=== PATIENT | female | born 1940 | race Caucasian/White ===

== ENCOUNTER 2016-05-05 11:45 | Emergency (ER) | payer OTHER ==
[~2016-05-05] VITALS: Ht 148.6 cm; Wt 41.0 kg
[~2016-05-05 11:45] MED LIST: ADVIN50/60 INH; ALBUAER2 INH; AMLO2.5T PO; ATV5X PO; BXN500 PO; CLR10 PO; FLUT0.15 NAE; LACT10SO17 PO; LEVA1.255 INH; LEVO75TA5 PO; POTA10TA32 PO; SALI0.6517 NAE; SODI1TAB PO; SPRIN INH; [UNRECOGNIZED DRUG - CODE] OPB
[2016-05-05 11:50] VITALS: TEMP 36.6; Ht 148.6 cm; Wt 41.0 kg
[2016-05-05] MEDS ORDERED: MoRPHine SULFATE 10 MG/ML CARP/VIAL IV STA (12:02)
[2016-05-05] MEDS ORDERED: ONDANSETRON INJ 2 MG/ML 2 ML VIAL IV STA (12:02)
[2016-05-05] MEDS ORDERED: KETOROLAC TROMETHAMINE 30 MG/ML VIAL IV STA (12:02)
[2016-05-05 12:25] LABS: BASO % 0.1 %; BASO ABS # 0.01 K/uL (0-0.2); COMPLETE YES; EOS % 0.7 %; HEMATOCRIT 42.8 % (37-47); IG% 1.4 %; LYMPH % 12.1 %; LYMPH ABS # 1.49 K/uL (1.2-3.4); MEAN CELL VOLUME 96.8 fL (80-100); MEAN CORPUSCULAR HEMOGLOBIN 33.3 pg (25-34); MEAN CORPUSCULAR HGB CONC 34.3 g/dl (32-36); MEAN PLATELET VOLUME 9.1 fL (7.4-10.4); MONO % 5.5 %; NEUT % 80.2 %; PLATELET COUNT 239 K/uL (130-400); RED BLOOD COUNT 4.42 M/uL (4.2-5.4); WHITE BLOOD COUNT 12.29 K/uL (4.8-10.8)
[2016-05-05 12:44] LABS: BUN/CREATININE RATIO 24.7 (10-20); CALCIUM 8.8 mg/dl (8.5-10.1); CREATININE 0.75 mg/dl (0.60-1.20); POTASSIUM 4.5 mmol/L (3.5-5.1)
--- NOTE | 2016-05-05 13:02 | DIAGNOSTIC IMAGING REPORT ---
LUMBAR SPINE 5 VIEWS CLINICAL HISTORY: Low back pain. FINDINGS: 5 views of the lumbar spine are correlated with abdominal CT dated 04/24/2015. The skeletal structures are osteopenic. There is no radiographic evidence of fracture or malalignment. Vertebral body height and alignment are maintained. The transverse and spinous processes are intact. There is no evidence of spondylolysis. There is only mild degenerative disc space narrowing seen throughout the lumbar spine. Anterior osteophytes are seen throughout. Mild facet arthropathy is present in the lower lumbar spine. The visualized bony pelvis appears intact. There is a nonobstructed abdominal bowel gas pattern. There is severe constipation. There is evidence carotid calcification of the abdominal aorta. IMPRESSION: 1. There is no acute bony amount is seen involving the lumbosacral spine. 2. Osteopenia and mild lumbosacral spondylosis as above. 3. Severe constipation. Electronically signed by: Nhan Price M.D. 05/05/2016 1:00 PM Dictated Date/Time: 05/05/2016 12:58 PM
[2016-05-05] MEDS ORDERED: PRED10TA PO (13:07)
[2016-05-05] MEDS ORDERED: AZIT250T PO (13:07)
[2016-05-05] MEDS ORDERED: VNTHFA/IN INH (13:07)
[2016-05-05] MEDS ORDERED: TRAV0.00 OPB (13:07)
[2016-05-05] MEDS ORDERED: SODIUM CHLORIDE 0.9% 1000ML 1,000 ML IV STA (13:18)
[2016-05-05 14:29] LABS: URINE APPEARANCE CLEAR (CLEAR); URINE BILIRUBIN NEG (NEG); URINE COLOR YELLOW; URINE EPITHELIAL CELL AUTO 0-5 /lpf (0-5); URINE NITRITE NEG (NEG); URINE PH 6.5 (4.5-7.5); URINE SPECIFIC GRAVITY 1.013 (1.000-1.030); UROBILINOGEN NEG (NEG); ZZURINE CULT IF INDIC CATH NO
[2016-05-05 14:32] LABS: MANUAL MICROSCOPIC REQUIRED? NO; REVIEW REQ? NO
[2016-05-05] MEDS ORDERED: MAGNESIUM CITRATE 296 ML/BTL PO PRN (14:45)
--- NOTE | 2016-05-05 14:46 | EMERGENCY ROOM VISIT NOTE ---
History First contact with patient: 11:55 Chief Complaint: BACK PAIN Stated Complaint: EXTREME BACK PAIN History of Present Illness The patient is a 76 year old female who presents to the Emergency Room with complaints of left-sided back pain which started on Saturday and has been getting progressively worse. The daughter states that on Saturday she started complaining of back pain. There was no trauma to the back or injury. Then the patient did not complain about the back pain for a day or 2 and now it has been getting progressively worse over the last 24 hours. She denies any urinary symptoms of frequency, urgency, dysuria or hematuria. The patient does have a history of recurrent UTIs. The patient denies any fever, chest pain. The patient has severe COPD. Review of Systems 6 system review was performed and was negative unless stated otherwise in history of present illness. Past Medical/Surgical History Medical Problems: (1) Allergic rhinitis (2) Glaucoma (3) HTN (hypertension) (4) Hypothyroidism (5) Osteoporosis (6) SIADH (syndrome of inappropriate ADH production) Surgical Problems: (1) History of cataract surgery (2) History of tonsillectomy Family History Gallbladder disease Hypertension Social History Smoking Status: Current Every Day Smoker Drug Use: none Marital Status: Housing Status: lives with family Occupation Status: retired Current/Historical Medications Scheduled Amlodipine Besylate (Norvasc), 2.5 MG PO DAILY Azithromycin (Zithromax), 250 MG PO 3XWK Fluticasone Prop/Salmeterol (Advair Diskus 500/50 60 Dose), 1 PUFFS INH BID Fluticasone Propionate (Nasal) (Flonase Allergy Relief), 2 SPRAYS NADIA DAILY Levothyroxine Sodium (Levothyroxine Sodium), 75 MCG PO DAILY Loratadine (Claritin), 10 MG PO DAILY Lorazepam (Lorazepam), 0.5 MG PO BID Potassium Chloride Microencaps (Potassium Chloride Er), 10 MEQ PO BID Prednisone (Prednisone), 5 MG PO Q2D Sodium Chloride (Sodium Chloride), 1 GM PO TID Tiotropium [place] (Spiriva Handihaler), 1 PUFF INH QAM Travoprost (Travatan Z), 1 DROPS OPB HS Scheduled PRN Albuterol Hfa (Ventolin Hfa), 2-4 PUFFS INH Q4H PRN for SOB/Wheezing Lactulose (Chronulac), 15 ML PO BID PRN for Constipation Levalbuterol Hcl (Levalbuterol), 0.5 ML INH Q4H PRN for SOB/Wheezing Allergies Coded Allergies: Levofloxacin (Verified Allergy, Severe, ANAPHYLAXIS, 03/14/16) Patient reported that the IV site was extremely itchy and that her throat "closed up" after administration of IV Levaquin Iodinated Diagnostic Agents (Verified Allergy, Intermediate, HIVES, ) Iodine (Unverified Allergy, Intermediate, HIVES, 03/14/16) PT STATES SHE GETS HIVES WHEN INJECTED WITH CONTRASTMEDIA Vancomycin (Verified Allergy, Intermediate, RASH, 03/14/16) PATIENT HAD RASH, HOT, FLUSHING AT THE END OF INFUSION. Codeine (Verified Allergy, Unknown, 03/14/16) Penicillins (Verified Allergy, Unknown, 03/14/16) Shellfish (Verified Allergy, Unknown, SEAFOOD = HIVES, 03/14/16) Sulfa Antibiotics (Verified Adverse Reaction, Mild, NAUSEA/VOMIT, 03/14/16 ) Physical Exam Vital Signs Date Time Temp Pulse Resp B/P Pulse Ox O2 Delivery O2 Flow Rate FiO2 05/05/16 13:23 85 18 155/94 94 Room Air 05/05/16 11:50 36.6 102 18 171/85 96 Room Air Physical Exam GENERAL: 76-year-old female appears very frail and in acute distress MENTAL Status: Alert and oriented 3. LUNGS: Diffuse wheezing and rhonchi noted throughout both lung crenshaw. Poor air exchange. CARDIAC: Regular rate and rhythm without murmur. Pulses is full and equal throughout. BACK: Left CVA tenderness noted LUMBAR SPINE: The patient has tenderness palpation the entire lumbar region. Limited exam secondary to patient's pain. ABDOMEN: Positive bowel sounds all 4 quadrants. Soft, nontender to palpation without organomegaly or masses. Medical Decision & Procedures ER Provider Diagnostic Interpretation: LUMBAR SPINE 5 VIEWS CLINICAL HISTORY: Low back pain. FINDINGS: 5 views of the lumbar spine are correlated with abdominal CT dated 04/24/2015. The skeletal structures are osteopenic. There is no radiographic evidence of fracture or malalignment. Vertebral body height and alignment are maintained. The transverse and spinous processes are intact. There is no evidence of spondylolysis. There is only mild degenerative disc space narrowing seen throughout the lumbar spine. Anterior osteophytes are seen throughout. Mild facet arthropathy is present in the lower lumbar spine. The visualized bony pelvis appears intact. There is a nonobstructed abdominal bowel gas pattern. There is severe constipation. There is evidence carotid calcification of the abdominal aorta. IMPRESSION: 1. There is no acute bony amount is seen involving the lumbosacral spine. 2. Osteopenia and mild lumbosacral spondylosis as above. 3. Severe constipation. Electronically signed by: Nhan Price M.D. 05/05/2016 1:00 PM Laboratory Results 05/05/16 12:04 Red Blood Count 4.42, Mean Corpuscular Volume 96.8, Mean Corpuscular Hemoglobin 33.3, Mean Corpuscular Hemoglobin Concent 34.3, Mean Platelet Volume 9.1, Neutrophils (%) (Auto) 80.2, Lymphocytes (%) (Auto) 12.1, Monocytes (%) (Auto) 5.5, Eosinophils (%) (Auto) 0.7, Basophils (%) (Auto) 0.1, Neutrophils # (Auto) 9.87, Lymphocytes # (Auto) 1.49, Monocytes # (Auto) 0.67, Eosinophils # (Auto) 0.08, Basophils # (Auto) 0.01 05/05/16 12:04 Test 05/05/16 12:04 05/05/16 13:25 White Blood Count 12.29 K/uL (4.8-10.8) Red Blood Count 4.42 M/uL (4.2-5.4) Hemoglobin 14.7 g/dL (12.0-16.0) Hematocrit 42.8 % (37-47) Mean Corpuscular Volume 96.8 fL (80-100) Mean Corpuscular Hemoglobin 33.3 pg (25-34) Mean Corpuscular Hemoglobin Concent 34.3 g/dl (32-36) Platelet Count 239 K/uL (130-400) Mean Platelet Volume 9.1 fL (7.4-10.4) Neutrophils (%) (Auto) 80.2 % Lymphocytes (%) (Auto) 12.1 % Monocytes (%) (Auto) 5.5 % Eosinophils (%) (Auto) 0.7 % Basophils (%) (Auto) 0.1 % Neutrophils # (Auto) 9.87 K/uL (1.4-6.5) Lymphocytes # (Auto) 1.49 K/uL (1.2-3.4) Monocytes # (Auto) 0.67 K/uL (0.11-0.59) Eosinophils # (Auto) 0.08 K/uL (0-0.5) Basophils # (Auto) 0.01 K/uL (0-0.2) RDW Standard Deviation 55.6 fL (36.4-46.3) RDW Coefficient of Variation 15.6 % (11.5-14.5) Immature Granulocyte % (Auto) 1.4 % Immature Granulocyte # (Auto) 0.17 K/uL (0.00-0.02) Anion Gap 10.0 mmol/L (3-11) Est Creatinine Clear Calc Drug Dose 42.6 ml/min Estimated GFR () 91.0 Estimated GFR (Non- 78.5 BUN/Creatinine Ratio 24.7 (10-20) Calcium Level 8.8 mg/dl (8.5-10.1) Total Bilirubin 0.5 mg/dl (0.2-1) Direct Bilirubin 0.1 mg/dl (0-0.2) Aspartate Amino Transf (AST/SGOT) 19 U/L (15-37) Alanine Aminotransferase (ALT/SGPT) 26 U/L (12-78) Alkaline Phosphatase 78 U/L (45-117) Total Protein 7.2 gm/dl (6.4-8.2) Albumin 3.7 gm/dl (3.4-5.0) Lipase 236 U/L (73-393) Urine Color YELLOW Urine Appearance CLEAR (CLEAR) Urine pH 6.5 (4.5-7.5) Urine Specific Hoopa 1.013 (1.000-1.030) Urine Protein NEG (NEG) Urine Glucose (UA) NEG (NEG) Urine Ketones NEG (NEG) Urine Occult Blood 1+ (NEG) Urine Nitrite NEG (NEG) Urine Bilirubin NEG (NEG) Urine Urobilinogen NEG (NEG) Urine Leukocyte Esterase NEG (NEG) Urine WBC (Auto) 0 /hpf (0-5) Urine RBC (Auto) 5-10 /hpf (0-4) Urine Hyaline Casts (Auto) 0 /lpf (0-5) Urine Epithelial Cells (Auto) 0-5 /lpf (0-5) Urine Bacteria (Auto) NEG (NEG) Medications Administered Medications (Trade) Dose Ordered Sig/Jhon Route Start Time Stop Time Status Last Admin Dose Admin Ketorolac Tromethamine (Toradol Inj) 30 mg NOW STAT IV 05/05/16 12:02 05/05/16 12:05 DC 05/05/16 12:09 30 MG Morphine Sulfate (MoRPHine SULFATE INJ) 6 mg NOW STAT IV 05/05/16 12:02 05/05/16 12:05 DC 05/05/16 12:09 6 MG Ondansetron HCl 4 mg 4 mg NOW STAT IV 05/05/16 12:02 05/05/16 12:05 DC 05/05/16 12:08 4 MG Sodium Chloride (Nss 1000ml) 1,000 ml @ 999 mls/hr Q1H1M STAT IV 05/05/16 13:18 05/05/16 14:18 DC 05/05/16 13:24 999 MLS/HR ED Course The patient was evaluated. IV access was obtained. CBC and differential, renal profile, LFTs and lipase levels were ordered. Urinalysis was ordered. The patient was given morphine 6 mg IV, Zofran 4 mg IV and Toradol 30 mg IV for pain and associated nausea. X-ray of the lumbar spine was ordered and interpreted by the radiologist and myself as above without any evidence of fracture but there was a large amount of stool within the colon. Labs are reviewed. White count was slightly elevated otherwise labs are unremarkable. Urinalysis was unremarkable. The patient was reevaluated was feeling better. The patient was independently evaluated by Dr. Alonso who agreed with treatment plan. I discussed the findings with both the patient and her daughter. The patient did not want an enema while in the emergency room. She felt she could not tolerate it. The patient was given a bottle of magnesium citrate to take with her to use as directed. The patient was discharged home in stable condition. Medical Decision Differential diagnoses include UTI, pyelonephritis, constipation, fecal impaction, compression fracture Impression Primary Impression: Constipation Departure Information Dispostion Home / Self-Care Condition GOOD Referrals Malik Forman M.D. (MEDICAL) (PCP) Patient Instructions ED Constipation, My [facility] Additional Instructions Push fluids. Drink the entire bottle of magnesium citrate to initiate bowel movement. Avoid dairy products. High-fiber diet. If symptoms persist, follow- up with your family physician.
[2016-05-05 15:02] VITALS: BP 130/69; PULSE 94; O2SAT 93
--- NOTE | 2016-05-05 16:27 | EMERGENCY ROOM VISIT NOTE ---
ED Visit Note First contact with patient: 11:55 I have personally evaluated and examined this patient. I agree with assessment and plan of Betty Jauregui PA-C.
[2016-05-18] MEDS ORDERED: PRED10TA PO (17:13)
[2016-05-18] MEDS ORDERED: LDDP5 TD (17:13)
[2016-07-02] MEDS ORDERED: CRDCD120 PO (10:58)
[2016-07-02] MEDS ORDERED: SYMIN160 INH (10:58)
[2016-07-02] MEDS ORDERED: PRD20 PO (10:58)
[2016-07-02] MEDS ORDERED: PRLSR20 PO (10:58)
[2016-07-02] MEDS ORDERED: LCTX PO (11:04)
== END 2016-05-05 15:06 | disposition home or self-care (01) ==
LOC: C.EDB 11:46 → C.EDC 15:06
DX: K59.00 Constipation, unspecified (principal); F17.200 Nicotine dependence, unspecified, uncomplicated; I10 Essential (primary) hypertension; E03.9 Hypothyroidism, unspecified; M81.0 Age-related osteoporosis without current pathological fracture

== ENCOUNTER 2016-05-12 15:13 | Inpatient (IN) | payer OTHER ==
[2016-05-12] VITALS (9 sets, daily range): BP systolic 111–128; BP diastolic 67–76; PULSE 25–151; TEMP 36.7–37.6; O2SAT 95–100; Ht 147.3 cm; Wt 37.8 kg
[~2016-05-12] VITALS: Ht 147.3 cm; Wt 37.8 kg
[~2016-05-12 15:13] MED LIST changes: -ALBUAER2 INH; +AZIT250T PO; -BXN500 PO; +PRED10TA PO; -SALI0.6517 NAE; +TRAV0.00 OPB; +VNTHFA/IN INH; -[UNRECOGNIZED DRUG - CODE] OPB
[2016-05-12] MEDS ORDERED: LORAZEPAM 2 MG/ML 1 ML VIAL IV STA (15:29)
[2016-05-12 15:52] LABS: ISTAT CREATININE 0.8 mg/dl (0.6-1.3); ISTAT IONIZED CALCIUM 1.27 mmol/l (1.12-1.32)
--- NOTE | 2016-05-12 15:52 | DIAGNOSTIC IMAGING REPORT ---
CHEST ONE VIEW PORTABLE CLINICAL HISTORY: Atypical chest pain. Respiratory distress. COMPARISON STUDY: 03/14/2016 FINDINGS: The patient is hyperinflated. Underlying emphysema is suspected. The heart is normal in size. There is no failure. There is no focal pulmonary consolidation. There are no pleural effusions.[ IMPRESSION: Emphysema. No active disease in the chest. Electronically signed by: Rafy Ortiz M.D. 05/12/2016 3:51 PM Dictated Date/Time: 05/12/2016 3:50 PM
[2016-05-12 15:57] LABS: BASO % 0.1 %; BASO ABS # 0.02 K/uL (0-0.2); COMPLETE YES; EOS % 0.3 %; HEMATOCRIT 41.5 % (37-47); IG% 1.5 %; LYMPH % 16.3 %; LYMPH ABS # 2.86 K/uL (1.2-3.4); MEAN CELL VOLUME 95.8 fL (80-100); MEAN CORPUSCULAR HEMOGLOBIN 33.7 pg (25-34); MEAN CORPUSCULAR HGB CONC 35.2 g/dl (32-36); MEAN PLATELET VOLUME 9.4 fL (7.4-10.4); MONO % 6.2 %; NEUT % 75.6 %; PLATELET COUNT 255 K/uL (130-400); RED BLOOD COUNT 4.33 M/uL (4.2-5.4); WHITE BLOOD COUNT 17.55 K/uL (4.8-10.8)
[2016-05-12 16:00] LABS: POINT OF CARE TROPONIN I 0.02 ng/ml (0-0.045)
[2016-05-12 16:12] LABS: INR 0.9 (0.9-1.1); PARTIAL THROMBOPLASTIN RATIO 0.8; PROTHROMBIN TIME (PATIENT) 9.4 SECONDS (9.0-12.0)
[2016-05-12 16:14] LABS: BUN/CREATININE RATIO 17.3 (10-20); CALCIUM 10.1 mg/dl (8.5-10.1); CREATININE 0.9 mg/dl (0.60-1.20); MAGNESIUM 1.9 mg/dl (1.8-2.4)
[2016-05-12] MEDS ORDERED: ALBUTEROL HFA 8 GM INHALER INH PRN (16:30)
[2016-05-12] MEDS ORDERED: DEXTROSE 50% 50 ML SYR IV PRN (16:30)
[2016-05-12] MEDS ORDERED: ONDANSETRON INJ 2 MG/ML 2 ML VIAL IV PRN (16:30)
[2016-05-12] MEDS ORDERED: GLUCOSE 10 TABS/TUBE PO PRN (16:30)
[2016-05-12] MEDS ORDERED: GLUCAGON FOR INJ 1 MG VIAL SQ PRN (16:30)
[2016-05-12] MEDS ORDERED: GLUCOSE 40% GEL 15 GM TUBE PO PRN (16:30)
[2016-05-12] MEDS ORDERED: POLYETHYLENE (MIRALAX) 17 GM PACK PO PRN (16:30)
[2016-05-12] MEDS ORDERED: METHYLPREDNISOLONE IV 60 MG in SYRINGE 0 ML IV SCH ×2 (16:30→18:30)
[2016-05-12] MEDS ORDERED: BISACODYL 10 MG SUPP PR PRN (16:30)
[2016-05-12] MEDS ORDERED: ALUMINUM/MAGNESIUM/SIMETH (MAALOX MAX) 30 ML UDC PO PRN (16:30)
[2016-05-12] MEDS ORDERED: MAGNESIUM HYDROXIDE SUSP 30 ML UDC PO PRN (16:30)
[2016-05-12] MEDS ORDERED: ACETAMINOPHEN 325 MG TAB PO PRN (16:30)
[2016-05-12] MEDS ORDERED: LACTULOSE SYRUP 10 GM/15 ML BTL 473 ML PO PRN (16:30)
[2016-05-12] MEDS ORDERED: TRAZ50TA35 PO (16:47)
--- NOTE | 2016-05-12 16:47 | History and Physical ---
History & Physical Date & Time of Service: May 12, 2016 at 16:32 Chief Complaint: SOB Primary Care Physician: Malik Forman M.D. (MEDICAL) History of Present Illness Source: patient, family, clinic records, hospital records Patient seen and examined. 76 year old female with PMHx of SIADH, hypothyroidism , HTN, COPD, Anxiety,and tobacco abuse presents to the ED complaining of SOB x 2 days. Patient states that she has been on a prednisone taper for the last month and is getting down to the end only taking a half of a pill. Yesterday she states she started to feel a little more SOB but not too bad. She states when she woke up today she felt extremely SOB and daughter called EMS. Patient reports associated wheezing, she states she has an occasional cough. She reports she finished a course of Biaxin last week. She states she takes zithromycin MWF. She reports she has been on back to back prednisone tapers because this keeps happening every time she gets close to the ED of the taper. She denies fevers, chills, chest pain, palpitations, nausea, vomiting, dysuria, calf pain and edema. She reports she has been having a lot of diarrhea. When EMS arrived at patients home she was 90% on RA, she received solu-medrol and nebs enroute. On arrival to ED she was placed on Bipap and is saturating well. HR is elevated and daughter reports patient gets anxious when at the hospital, WBC count was 17K, lactate is <2, CXR is without consolidation. She will be admitted for further workup and treatment. Past Medical/Surgical History Medical Problems: (1) Allergic rhinitis Status: Chronic (2) Glaucoma Status: Chronic (3) HTN (hypertension) Status: Chronic (4) Hypothyroidism Status: Chronic (5) Osteoporosis Status: Chronic (6) SIADH (syndrome of inappropriate ADH production) Status: Chronic Surgical Problems: (1) History of cataract surgery Status: Chronic (2) History of tonsillectomy Status: Resolved Family History Gallbladder disease Hypertension Social History Smoking Status: Current Every Day Smoker Drug Use: none Marital Status: Housing status: lives with family Occupational Status: retired Immunizations History of Influenza Vaccine: No History of Tetanus Vaccine?: Unknown History of Pneumococcal: Yes Pneumococcal Date: Jun 13, 2009 History of Hepatitis B Vaccine: No Multi-Drug Resistant Organisms History of MDRO: No Allergies Coded Allergies: Levofloxacin (Verified Allergy, Severe, ANAPHYLAXIS, 03/14/16) Patient reported that the IV site was extremely itchy and that her throat "closed up" after administration of IV Levaquin Iodinated Diagnostic Agents (Verified Allergy, Intermediate, HIVES, ) Iodine (Unverified Allergy, Intermediate, HIVES, 03/14/16) PT STATES SHE GETS HIVES WHEN INJECTED WITH CONTRASTMEDIA Vancomycin (Verified Allergy, Intermediate, RASH, 03/14/16) PATIENT HAD RASH, HOT, FLUSHING AT THE END OF INFUSION. Codeine (Verified Allergy, Unknown, 03/14/16) Penicillins (Verified Allergy, Unknown, 03/14/16) Shellfish (Verified Allergy, Unknown, SEAFOOD = HIVES, 03/14/16) Sulfa Antibiotics (Verified Adverse Reaction, Mild, NAUSEA/VOMIT, 03/14/16 ) Home Medications Scheduled Amlodipine Besylate (Norvasc), 2.5 MG PO DAILY Azithromycin (Zithromax), 250 MG PO 3XWK Fluticasone Prop/Salmeterol (Advair Diskus 500/50 60 Dose), 1 PUFFS INH BID Fluticasone Propionate (Nasal) (Flonase Allergy Relief), 2 SPRAYS NADIA DAILY Levothyroxine Sodium (Levothyroxine Sodium), 75 MCG PO DAILY Loratadine (Claritin), 10 MG PO DAILY Lorazepam (Lorazepam), 0.5 MG PO BID Potassium Chloride Microencaps (Potassium Chloride Er), 10 MEQ PO BID Prednisone (Prednisone), 5 MG PO Q2D Sodium Chloride (Sodium Chloride), 1 GM PO TID Tiotropium Gregory (Spiriva Handihaler), 1 PUFF INH QAM Travoprost (Travatan Z), 1 DROPS OPB HS Trazodone Hcl (Trazodone), 50 MG PO HS Scheduled PRN Albuterol Hfa (Ventolin Hfa), 2-4 PUFFS INH Q4H PRN for SOB/Wheezing Lactulose (Chronulac), 15 ML PO BID PRN for Constipation Levalbuterol Hcl (Levalbuterol), 0.5 ML INH Q4H PRN for SOB/Wheezing Review of Systems See above for pertinent positives & negatives. A total of 10 systems reviewed and were otherwise negative. Physical Exam Vital Signs Date Time Temp Pulse Resp B/P Pulse Ox O2 Delivery O2 Flow Rate FiO2 05/12/16 16:29 140 31 109/85 100 BiPAP 05/12/16 16:14 151 97 50 05/12/16 16:13 151 38 97 BiPAP/CPAP 50 05/12/16 16:11 150 05/12/16 16:06 149 26 136/89 100 BiPAP 05/12/16 15:58 100 BiPAP 05/12/16 15:54 150 28 156/99 100 BiPAP 05/12/16 15:51 100 BiPAP 05/12/16 15:37 36.4 151 38 137/116 100 BiPAP 05/12/16 15:37 90 Room Air General Appearance: + pertinent finding (Cachectic appearing 76 year old female lying in bed on BIPAP in NAD with daughter at bedside ) Head: normocephalic, atraumatic Eyes: EOMI, sclerae normal ENT: hearing grossly normal, + pertinent finding (BIPAP) Neck: supple, no JVD Respiratory/Chest: chest non-tender, + pertinent finding (On BIPAP, lungs poor air entry, decreased breath sounds, tachypnea ) Cardiovascular: no edema, no gallop, no JVD, no murmur, normal peripheral pulses, + tachycardia (150s, regular ) Abdomen/GI: normal bowel sounds, non tender, soft Back: normal inspection, no muscle spasm Extremities/Musculoskelatal: no calf tenderness, normal capillary refill, no pedal edema Neurologic/Psych: alert, oriented x 3, + pertinent finding (no motor or sensory deficits noted on gross exam ) Skin: normal color, warm/dry, no rash Lymphatic: no adenopathy Diagnostics Laboratory Results Results Past 24 Hours Test 05/12/16 15:30 05/12/16 15:32 05/12/16 15:36 05/12/16 15:41 Range/Units White Blood Count 17.55 4.8-10.8 K/uL Red Blood Count 4.33 4.2-5.4 M/uL Hemoglobin 14.6 12.0-16.0 g/dL Hematocrit 41.5 37-47 % Mean Corpuscular Volume 95.8 80-100 fL Mean Corpuscular Hemoglobin 33.7 25-34 pg Mean Corpuscular Hemoglobin Concent 35.2 32-36 g/dl Platelet Count 255 130-400 K/uL Mean Platelet Volume 9.4 7.4-10.4 fL Neutrophils (%) (Auto) 75.6 % Lymphocytes (%) (Auto) 16.3 % Monocytes (%) (Auto) 6.2 % Eosinophils (%) (Auto) 0.3 % Basophils (%) (Auto) 0.1 % Neutrophils # (Auto) 13.26 1.4-6.5 K/uL Lymphocytes # (Auto) 2.86 1.2-3.4 K/uL Monocytes # (Auto) 1.09 0.11-0.59 K/uL Eosinophils # (Auto) 0.05 0-0.5 K/uL Basophils # (Auto) 0.02 0-0.2 K/uL RDW Standard Deviation 52.6 36.4-46.3 fL RDW Coefficient of Variation 15.0 11.5-14.5 % Immature Granulocyte % (Auto) 1.5 % Immature Granulocyte # (Auto) 0.27 0.00-0.02 K/uL Prothrombin Time 9.4 9.0-12.0 SECONDS Prothromb Time International Ratio 0.9 0.9-1.1 Activated Partial Thromboplast Time 21.5 21.0-31.0 SECONDS Partial Thromboplastin Ratio 0.8 Sodium Level 136 136-145 mmol/L Potassium Level 4.0 3.5-5.1 mmol/L Chloride Level 100 98-107 mmol/L Carbon Dioxide Level 26 21-32 mmol/L Anion Gap 10.0 16.0 16-25 mmol/L Blood Urea Nitrogen 16 7-18 mg/dl Creatinine 0.90 0.60-1.20 mg/dl Est Creatinine Clear Calc Drug Dose 31.3 ml/min Estimated GFR () 73.0 Estimated GFR (Non- 63.0 BUN/Creatinine Ratio 17.3 10-20 Random Glucose 101 70-99 mg/dl Calcium Level 10.1 8.5-10.1 mg/dl Magnesium Level 1.9 1.8-2.4 mg/dl Bedside Hemoglobin 15.0 12.0-16.0 g/dl Bedside Hematocrit 44 37-47 % Bedside Sodium 136 135-144 mEq/L Bedside Potassium 4.1 3.3-5.0 mEq/L Bedside Chloride 98 101-112 mEq/L Bedside Total CO2 27 24-31 mEq/l Bedside Blood Urea Nitrogen 15 7-18 mg/dl Bedside Creatinine 0.8 0.6-1.3 mg/dl Bedside Glucose (other) 105 70-99 mg/dl Bedside Ionized Calcium (Dante) 1.27 1.12-1.32 mmol/l Bedside Lactic Acid Venous 1.24 0.90-1.70 mmol/L Bedside Troponin I 0.020 0-0.045 ng/ml KY-[id number]-[id number]-Type Natriuretic Peptide 423 0-900 pg/ml Test 05/12/16 16:20 Range/Units Microbiology Results 05/12/16 Blood Culture, Received Pending 05/12/16 Blood Culture, Received Pending Diagnostic Radiology CXR Per radiologist read: IMPRESSION: Emphysema. No active disease in the chest. Impression Assessment and Plan 76 year old female presents to the ED complaining of increase SOB x 1 day ACUTE EXACERBATION OF COPD -Admit to PCU -CXR without consolidation, check Flu PCR -WBC 17K possibly secondary to steroid use, Lactate <2 -IV Solu-Medrol -Xopenex nebs scheduled and prn RE: tachycardia -Empiric Abx with doxycycline -Continue Spiriva, Advair -Continue BIPAP until respiratory status improved -Blood cultures, sputum cultures pending -CBC, PRP, Mg daily -Pulmonology consultation for further recommendations ACUTE RESPIRATORY FAILURE -secondary to COPD exacerbation- does not use oxygen at home -continue Bipap -ABG pending -additional treatment as above TACHYCARDIA -Possibly secondary to hypoxia -continue Bipap -R/O PE - ddimer pending -patient has contrast dye allergy will need prednisone prep prior to CTA if DDimer is positive DIARRHEA -check C. diff HYPOTHYROIDISM -continue Synthroid HTN -stable -continue Amlodipine ANXIETY - continue Ativan prn SIADH -Sodium stable -continue Sodium Tablets TOBACCO ABUSE -Cessation counseling given -Nicotine patch ordered AAA -2.6 cm on 04/2015 DVT PROPHYLAXIS: Sq heparin CODE STATUS: FULL CODE DISPO:In my clinical judgment this beneficiary meets acute admission criteria, established by [facility], that includes being hospitalized through two midnights. Patient seen in collaboration with Dr. Melton ATTENDING NOTE : pt seen and examined at bedside , care co ordinated with Lydia Weston PA-C 76 yo F with hx of COPD not on home 02 , presented with Severe SOB , hypoxia, tachycardia pt mentions of having non productive cough for past week was treated with Biaxine now on taper end of Prednisone has been having ongoing difficulty of breathing -but this morning it was so severe she could get out of bed minimum activity made her SOB felt that can not get enough air in pt was placed on Bipap in ED spo2 was 100 % Bipap Fi02 50% Fio2 ordered to adjust to 30 % P/E: gen : very frail elderly female having respiratory distress HEENT: sclera non icteric on Bipap able to speak in sentences Lungs; very poor air entry HT : tachycardic Abdomen ; soft non tender Ext : no rash or deformity Neuro : no focal deficit A/P : Acute on Chronic respiratory failure : -due to COPD exacerbation -on Bipap support -ordered for IV Solu Medrol 125 mg IV X1 now then continue on 60 mg IV Q 6hrs Neb tx Xopenex scheduled QID and prn Q 2hrs empiric abx with Doxycycline no infiltrate noted in Chest xray pulmonology consulted pt follow with Renata Garcia PA-C Tachycardia : sinus tachycardia -due to Respiratory distress cont respiratory support Need to R/o PE D -dimer elevated lower ext Doppler ordered CTA of chest for PE after prednisone prep for IV dye allergy ECHO ordered monitor in Tele FULL CODE update given to daughter at bedside VTE Prophylaxis VTE Risk Assessment Done? Y/N: Yes Risk Level: Moderate
[2016-05-12 17:19] LABS: ALLEN TEST POS (POS); ARTERIAL BLD GAS O2 SATURATION 99.8 % (90-95); ARTERIAL BLOOD GAS BASE EXCESS 1.5 mEq/L (-9-1.8); ARTERIAL BLOOD GAS HCO3 26 mmol/L (19-24); ARTERIAL BLOOD GAS PO2 291 mm/Hg (80-95); ARTERIAL BLOOD GAS pH 7.43 (7.35-7.45); O2 ADMINISTRATION 50%
--- NOTE | 2016-05-12 18:19 | Progress Note ---
Progress Note ATTENDING NOTE : Pt remains persistently tachycardic HR in 138 -140s on BiPAP ABG shows pH 7.43/Co2 39/Po2 29 /02 99 D dimer > 500 concern for PE ( sudden onset of severe SOB started this AM /persisted tachycardia even when Hypoxia resolved , on BiPAP support ) lower ext Doppler ordered pt has iodinated contrast allergy -ordered for Prednisone Pre medication scheduled for CTA of chest for PE IV Solu Medrol 125 mg X 1 given for severe COPD exacerbation
[2016-05-12] MEDS ORDERED: METHYLPREDNISOLONE IV 125 MG in SYRINGE 0 ML IV ONE (18:30)
--- NOTE | 2016-05-12 19:00 | DIAGNOSTIC IMAGING REPORT ---
ULTRASOUND VENOUS DOPPLER LWR EXT BILA CLINICAL HISTORY: Bilateral leg swelling COMPARISON STUDY: No previous studies for comparison. FINDINGS: Real-time and color flow Doppler imaging were performed. Flow was seen within the femoral, popliteal and calf veins with no intraluminal thrombus demonstrated. The saphenous vein is patent. IMPRESSION: No evidence of lower extremity DVT. Electronically signed by: Rafy Ortiz M.D. 05/12/2016 6:58 PM Dictated Date/Time: 05/12/2016 6:58 PM
[2016-05-12] MEDS: POTASSIUM CHLORIDE 10 MEQ TABCR PO SCH (19:03)
--- NOTE | 2016-05-12 19:19 | EMERGENCY ROOM VISIT NOTE ---
History Report prepared by Lauri: Jinny Tabor Under the Supervision of: Dr. Zac Estrada M.D. First contact with patient: 15:20 Chief Complaint: RESPIRATORY DISTRESS Stated Complaint: SOB History of Present Illness The patient is a 76 year old female who presents to the Emergency Room with complaints of constant respiratory distress beginning today. Per EMS the patient has received 3 breathing treatments and Solu-Medrol. He reports that she is 90% on room air and her respiratory distress has improved minimally. The patient complains of low back pain that began 1 week ago. She denies any fever and abdominal pain and notes that she is on Prednisone and has COPD. The daughter notes that the patient has emphysema and was severely constipated last week. She takes 0.5mg of Lorazepam at home and has a history of panic attacks when she comes into the hospital. The daughter notes that the patient still smokes. She denies any numbness or weakness to her lower extremities or incontinence. She states she has to have a bowel movement. She denies any chest discomfort or any upper back pain. HPI limited secondary to respiratory distress. Source of History: patient, family History Limited By: other (respiratory distress) Onset: today Position: other (respiratory) Timing: constant Associated Symptoms: + back pain, No abdominal pain, No fevers, No numbness , No weakness Review of Systems See HPI for pertinent positives & negatives. ROS limited secondary to respiratory distress. Past Medical & Surgical Medical Problems: (1) Allergic rhinitis (2) COPD exacerbation (3) Glaucoma (4) HTN (hypertension) (5) Hypothyroidism (6) Osteoporosis (7) SIADH (syndrome of inappropriate ADH production) Surgical Problems: (1) History of cataract surgery (2) History of tonsillectomy Family History Gallbladder disease Hypertension Social History Smoking Status: Current Every Day Smoker Drug Use: none Marital Status: Housing Status: lives with family Occupation Status: retired Current/Historical Medications Scheduled Amlodipine Besylate (Norvasc), 2.5 MG PO DAILY Azithromycin (Zithromax), 250 MG PO 3XWK Fluticasone Prop/Salmeterol (Advair Diskus 500/50 60 Dose), 1 PUFFS INH BID Fluticasone Propionate (Nasal) (Flonase Allergy Relief), 2 SPRAYS NADIA DAILY Levothyroxine Sodium (Levothyroxine Sodium), 75 MCG PO DAILY Loratadine (Claritin), 10 MG PO DAILY Lorazepam (Lorazepam), 0.5 MG PO BID Potassium Chloride Microencaps (Potassium Chloride Er), 10 MEQ PO BID Prednisone (Prednisone), 5 MG PO Q2D Sodium Chloride (Sodium Chloride), 1 GM PO TID Tiotropium [place] (Spiriva Handihaler), 1 PUFF INH QAM Travoprost (Travatan Z), 1 DROPS OPB HS Trazodone Hcl (Trazodone), 50 MG PO HS Scheduled PRN Albuterol Hfa (Ventolin Hfa), 2-4 PUFFS INH Q4H PRN for SOB/Wheezing Lactulose (Chronulac), 15 ML PO BID PRN for Constipation Levalbuterol Hcl (Levalbuterol), 0.5 ML INH Q4H PRN for SOB/Wheezing Allergies Coded Allergies: Levofloxacin (Verified Allergy, Severe, ANAPHYLAXIS, 03/14/16) Patient reported that the IV site was extremely itchy and that her throat "closed up" after administration of IV Levaquin Iodinated Diagnostic Agents (Verified Allergy, Intermediate, HIVES, ) Iodine (Unverified Allergy, Intermediate, HIVES, 03/14/16) PT STATES SHE GETS HIVES WHEN INJECTED WITH CONTRASTMEDIA Vancomycin (Verified Allergy, Intermediate, RASH, 03/14/16) PATIENT HAD RASH, HOT, FLUSHING AT THE END OF INFUSION. Codeine (Verified Allergy, Unknown, 03/14/16) Penicillins (Verified Allergy, Unknown, 03/14/16) Shellfish (Verified Allergy, Unknown, SEAFOOD = HIVES, 03/14/16) Sulfa Antibiotics (Verified Adverse Reaction, Mild, NAUSEA/VOMIT, 03/14/16 ) Physical Exam Vital Signs Date Time Temp Pulse Resp B/P Pulse Ox O2 Delivery O2 Flow Rate FiO2 05/12/16 16:14 151 97 50 05/12/16 16:13 151 38 97 BiPAP/CPAP 50 05/12/16 16:11 150 05/12/16 16:06 149 26 136/89 100 BiPAP 05/12/16 15:58 100 BiPAP 05/12/16 15:54 150 28 156/99 100 BiPAP 05/12/16 15:51 100 BiPAP 05/12/16 15:37 36.4 151 38 137/116 100 BiPAP 05/12/16 15:37 90 Room Air Physical Exam Constitutional: Vital signs reviewed. The patient is in respiratory distress. Eyes: Pupils are equal round reactive to light. Conjunctiva are noninjected. ENT: Pharynx is clear without erythema or exudate. Mucous membranes are slightly dry. Neck supple without meningeal signs. Respiratory: Diffuse wheezing. Poor air entry bilaterally. Cardiovascular: Tachycardic rate at 150 and regular rhythm. No rubs or gallops. GI: Soft, nondistended and nontender. Bowel sounds are present. Musculoskeletal: No peripheral edema. No lower extremity tenderness. Integumentary: No cyanosis. Neurological: The patient is awake and alert. No focal deficits. Motor and sensation are intact in the lower extremities. Psychiatric: Anxious. Medical Decision & Procedures ER Provider Diagnostic Interpretation: X-ray results as stated below per interpretation by me and the radiologist: CHEST ONE VIEW PORTABLE FINDINGS: The patient is hyperinflated. Underlying emphysema is suspected. The heart is normal in size. There is no failure. There is no focal pulmonary consolidation. There are no pleural effusions.[ IMPRESSION: Emphysema. No active disease in the chest. Electronically signed by: Rafy Ortiz M.D. 05/12/2016 3:51 PM Dictated Date/Time: 05/12/2016 3:50 PM Laboratory Results 05/12/16 15:30 Red Blood Count 4.33, Mean Corpuscular Volume 95.8, Mean Corpuscular Hemoglobin 33.7, Mean Corpuscular Hemoglobin Concent 35.2, Mean Platelet Volume 9.4, Neutrophils (%) (Auto) 75.6, Lymphocytes (%) (Auto) 16.3, Monocytes (%) (Auto) 6.2, Eosinophils (%) (Auto) 0.3, Basophils (%) (Auto) 0.1, Neutrophils # (Auto) 13.26, Lymphocytes # (Auto) 2.86, Monocytes # (Auto) 1.09, Eosinophils # (Auto) 0.05, Basophils # (Auto) 0.02 05/12/16 15:30 Test 05/12/16 15:30 05/12/16 15:32 05/12/16 15:36 05/12/16 15:41 White Blood Count 17.55 K/uL (4.8-10.8) Red Blood Count 4.33 M/uL (4.2-5.4) Hemoglobin 14.6 g/dL (12.0-16.0) Hematocrit 41.5 % (37-47) Mean Corpuscular Volume 95.8 fL (80-100) Mean Corpuscular Hemoglobin 33.7 pg (25-34) Mean Corpuscular Hemoglobin Concent 35.2 g/dl (32-36) Platelet Count 255 K/uL (130-400) Mean Platelet Volume 9.4 fL (7.4-10.4) Neutrophils (%) (Auto) 75.6 % Lymphocytes (%) (Auto) 16.3 % Monocytes (%) (Auto) 6.2 % Eosinophils (%) (Auto) 0.3 % Basophils (%) (Auto) 0.1 % Neutrophils # (Auto) 13.26 K/uL (1.4-6.5) Lymphocytes # (Auto) 2.86 K/uL (1.2-3.4) Monocytes # (Auto) 1.09 K/uL (0.11-0.59) Eosinophils # (Auto) 0.05 K/uL (0-0.5) Basophils # (Auto) 0.02 K/uL (0-0.2) RDW Standard Deviation 52.6 fL (36.4-46.3) RDW Coefficient of Variation 15.0 % (11.5-14.5) Immature Granulocyte % (Auto) 1.5 % Immature Granulocyte # (Auto) 0.27 K/uL (0.00-0.02) Prothrombin Time 9.4 SECONDS (9.0-12.0) Prothromb Time International Ratio 0.9 (0.9-1.1) Activated Partial Thromboplast Time 21.5 SECONDS (21.0-31.0) Partial Thromboplastin Ratio 0.8 D-Dimer 530 ug/L FEU (0-500) Est Creatinine Clear Calc Drug Dose 31.3 ml/min Estimated GFR () 73.0 Estimated GFR (Non- 63.0 BUN/Creatinine Ratio 17.3 (10-20) Calcium Level 10.1 mg/dl (8.5-10.1) Magnesium Level 1.9 mg/dl (1.8-2.4) Bedside Hemoglobin 15.0 g/dl (12.0-16.0) Bedside Hematocrit 44 % (37-47) Bedside Sodium 136 mEq/L (135-144) Bedside Potassium 4.1 mEq/L (3.3-5.0) Bedside Chloride 98 mEq/L (101-112) Bedside Total CO2 27 mEq/l (24-31) Anion Gap 16.0 mmol/L (16-25) Bedside Blood Urea Nitrogen 15 mg/dl (7-18) Bedside Creatinine 0.8 mg/dl (0.6-1.3) Bedside Glucose (other) 105 mg/dl (70-99) Bedside Ionized Calcium (Dante) 1.27 mmol/l (1.12-1.32) Bedside Lactic Acid Venous 1.24 mmol/L (0.90-1.70) Bedside Troponin I 0.020 ng/ml (0-0.045) EM-Jnx-X-Type Natriuretic Peptide 423 pg/ml (0-900) Laboratory results as reviewed by me. Medications Administered Medications (Trade) Dose Ordered Sig/Jhon Route Start Time Stop Time Status Last Admin Dose Admin Lorazepam (Ativan Inj) 0.5 mg NOW STAT IV 05/12/16 15:29 05/12/16 15:30 DC 05/12/16 15:33 0.5 MG ECG Indication: other (respiratory distress) Rate (beats per minute): 152 Rhythm: sinus tachycardia (narrow complex tachycardia) Findings: other (limited interpretation due to baseline artifact) ED Course 1520: The patient was evaluated in room B1. A complete history and physical exam was performed. 1529: Ativan Inj 0.5mg IV. 1558: I reevaluated the patient. She is feeling better but is still tachycardic and diffusely wheezing. 1604: I spoke with Perla Weston of [facility]. We discussed the patient and her results. The patient will be further evaluated. 1646: I reevaluated the patient. Her heart rate is 130 and she is feeling better. She feels less anxious and is admitted to the hospitalist. Medical Decision This is a 76-year-old female who presents with respiratory distress. Differential diagnosis includes COPD exacerbation, pneumothorax, pneumonia, bronchitis, CHF, pulmonary edema. I did perform a limited focused review of portions of the patient's old chart on the electronic medical record. The patient was seen here last week on 05/05/16 for back pain. She had a lumbar X- Ray that was negative for acute process other than constipation. I did evaluate the patient immediately on arrival as noted above. I did obtain history from the patient as well as the paramedics. I also obtained history from her daughter. She did receive Solu-Medrol IV prehospital. She has also been on a prednisone taper according to her daughter. The patient was placed on a continuous dye colorist dyer. She was placed on BiPAP. She was given an hour-long DuoNeb. She was given Ativan 0.5 mg IV because her daughter stated that she often has anxiety compounding her shortness of breath and response to benzos. I did order and personally review the patient's 12-lead EKG and chest x -ray as described above. I did order and review the patient's blood work as noted in the electronic medical record. I did reassess the patient multiple times. She did have significant improvement of her symptoms as well as improvement of her tachycardia. I did recommend admission to the hospital. I did discuss the case with the hospitalist and shoe parts caser. Consults Time Called: 1600 Consulting Physician: Perla Mak Returned Call: 1604 I spoke with Perla Weston of [facility]. We discussed the patient and her results. The patient will be further evaluated. Impression Primary Impression: Respiratory failure Additional Impressions: COPD exacerbation Tachycardia Low back pain Critical Care I have personally spent greater than 30 minutes of critical care time in the direct management of this patient. This includes bedside care, interpretation of diagnostic studies, and testing, discussion with consultants, patient, and family members, and other required patient management activities. This 30 minutes is in excess of all separately billable procedures. Scribe Attestation The scribe's documentation has been prepared under my direct and personally reviewed by me in its entirety. I confirm that the note above accurately reflects all work, treatment, procedures, and medical decision making performed by me. Departure Information Dispostion Being Evaluated By Hospitalist Referrals Malik Forman M.D. (MEDICAL) (PCP) Patient Instructions Asthma - [facility], [place], COPD - [facility], [place], Croup - [facility], [place], My [facility] Problem Qualifiers Primary Impression: Respiratory failure Chronicity: acute Respiratory failure complication: unspecified whether with hypoxia or hypercapnia Qualified Codes: J96.00 - Acute respiratory failure, unspecified whether with hypoxia or hypercapnia Additional Impressions: Low back pain Chronicity: acute Back pain laterality: midline Sciatica presence: without sciatica Qualified Codes: M54.5 - Low back pain
[2016-05-12] MEDS: IPRATROPIUM BROMIDE NEB SOLN 0.02% 2.5 ML VIAL INH SCH (20:11)
[2016-05-12] MEDS: LEVALBUTEROL 1.25MG/0.5ML NEB INH SCH (20:11)
[2016-05-12 20:22] LABS: INFLUENZA A PCR Neg for Influ A (NEG); INFLUENZA B PCR Neg for Influ B (NEG)
[2016-05-12] MEDS: FLUTICASONE/SALMETEROL (ADVAIR) 500/50 INH 14 PUFF INH SCH (20:35)
[2016-05-12] MEDS: SODIUM CHLORIDE 1 GM TAB PO SCH (20:36)
[2016-05-12] MEDS: DOXYCYCLINE HYCLATE 100 MG CAP PO SCH (20:36)
[2016-05-12] MEDS: TRAVOPROST Z 0.004% OPH SOLN 2.5 ML BTL OPB SCH (20:36)
[2016-05-12] MEDS: POLYETHYLENE (MIRALAX) 17 GM PACK PO SCH (20:36)
[2016-05-12] MEDS: DOCUSATE SODIUM 100 MG CAP PO SCH (20:36)
[2016-05-12] MEDS ORDERED: LEVALBUTEROL/IPRATROPIUM NEB INH SCH (21:00)
[2016-05-12] MEDS: HEPARIN SOD 5000 UNIT/0.5 ML CARP SQ SCH (22:00)
[2016-05-12] MEDS: LORAZEPAM 0.5 MG TAB PO SCH (22:19)
[2016-05-12] MEDS: METHYLPREDNISOLONE IV 60 MG in SYRINGE 0 ML IV SCH (23:47)
[2016-05-13] VITALS (15 sets, daily range): BP systolic 107–143; BP diastolic 62–81; PULSE 90–106; TEMP 36.4–37.1; O2SAT 93–97
[2016-05-13 01:01] LABS: CKMB/CK RATIO 7.2 (0-3.0)
[2016-05-13] MEDS: LEVALBUTEROL 1.25MG/0.5ML NEB INH SCH ×4 (01:54→19:17)
[2016-05-13] MEDS: IPRATROPIUM BROMIDE NEB SOLN 0.02% 2.5 ML VIAL INH SCH ×4 (01:54→19:17)
[2016-05-13] MEDS: METHYLPREDNISOLONE IV 60 MG in SYRINGE 0 ML IV SCH ×4 (05:37→23:50)
[2016-05-13] MEDS: LEVOTHYROXINE 75 MCG TAB PO SCH (05:37)
[2016-05-13] MEDS: HEPARIN SOD 5000 UNIT/0.5 ML CARP SQ SCH ×3 (05:40→21:43)
[2016-05-13 07:18] LABS: HEMATOCRIT 34.6 % (37-47); MEAN CELL VOLUME 95.1 fL (80-100); MEAN CORPUSCULAR HEMOGLOBIN 33.5 pg (25-34); MEAN CORPUSCULAR HGB CONC 35.3 g/dl (32-36); MEAN PLATELET VOLUME 9.3 fL (7.4-10.4); PLATELET COUNT 176 K/uL (130-400); RED BLOOD COUNT 3.64 M/uL (4.2-5.4); WHITE BLOOD COUNT 11.89 K/uL (4.8-10.8)
[2016-05-13 07:42] LABS: BASO % 0.1 %; BASO ABS # 0.01 K/uL (0-0.2); COMPLETE YES; IG% 1.1 %; LYMPH % 5.1 %; LYMPH ABS # 0.61 K/uL (1.2-3.4); MONO % 1.9 %; NEUT % 91.8 %
[2016-05-13] MEDS ORDERED: OPTIRAY 320 IV PRN (07:45)
[2016-05-13 07:50] LABS: BUN/CREATININE RATIO 26.8 (10-20); CALCIUM 8.9 mg/dl (8.5-10.1); CREATININE 1.3 mg/dl (0.60-1.20); MAGNESIUM 1.9 mg/dl (1.8-2.4); POTASSIUM 4.5 mmol/L (3.5-5.1)
[2016-05-13] MEDS: SODIUM CHLORIDE 1 GM TAB PO SCH ×3 (08:14→20:46)
[2016-05-13] MEDS: DOXYCYCLINE HYCLATE 100 MG CAP PO SCH ×2 (08:15→20:46)
[2016-05-13] MEDS: AMLODIPINE BESYLATE 5 MG TAB PO SCH (08:15)
[2016-05-13] MEDS: DOCUSATE SODIUM 100 MG CAP PO SCH ×2 (08:16→20:45)
[2016-05-13] MEDS: LORATADINE 10 MG TAB PO SCH (08:17)
[2016-05-13] MEDS: FLUTICASONE/SALMETEROL (ADVAIR) 500/50 INH 14 PUFF INH SCH ×2 (08:17→20:43)
[2016-05-13] MEDS: FLUTICASONE PROPIONATE NA SPR 16 GM BTL NAE SCH (08:18)
[2016-05-13] MEDS: TIOTROPIUM BROMIDE 5 PUFF/90 MCG INH INH SCH (08:18)
[2016-05-13] MEDS: POTASSIUM CHLORIDE 10 MEQ TABCR PO SCH ×2 (08:19→17:02)
[2016-05-13] MEDS: POLYETHYLENE (MIRALAX) 17 GM PACK PO SCH ×2 (08:19→20:46)
[2016-05-13] MEDS: LORAZEPAM 0.5 MG TAB PO SCH ×2 (08:21→20:45)
[2016-05-13 08:33] LABS: CKMB/CK RATIO 6.6 (0-3.0)
--- NOTE | 2016-05-13 08:33 | PULMONARY CONSULTATION ---
DATE OF CONSULTATION: 05/13/2016 TIME: 6:45 a.m. HISTORY OF PRESENT ILLNESS: The patient was seen in room 242 bed 2. She is a 76-year-old female who has a history of emphysema and severe COPD. She presented to the Emergency Room yesterday afternoon. She states that she had started to feel a little short of breath more than normal on Saturday night and then Saturday morning she was in respiratory distress. When EMS arrived, the patient was in distress and they gave her 3 breathing treatments. Her oxygen saturation on room air was 90%, although she was still very short of breath. She also had some low back pain for about a week she states. She had gone to the Emergency Room about that and they thought it was due to constipation. She still has some of the low back pain. The patient was treated with numerous bronchodilators and steroids. She was ultimately placed on BiPAP for a period of time. The BiPAP seemed to help. She has had her off for many hours; however. She has had a good night's sleep and her breathing is much improved this morning. She has essentially no cough. There has been no sputum production or hemoptysis. She denies chills, fevers or sweats. She has had a little bit of pain in the upper chest bilaterally. This seems to come and go. The patient has had COPD for many years. She has had an Emergency Room visit on March 14 for breathing. The same also happened 01/05/2016. She was hospitalized with respiratory distress from 10/18/2015 until 10/26/2015. The frequency of her exacerbations seem to be increasing. This is despite the fact she states she takes all of her medicines as prescribed. From a respiratory perspective, her breathing medicines include azithromycin 3 times per week, Advair 500/50 one puff b.i.d., prednisone 5 mg every other day, Spiriva 1 daily, Ventolin HFA p.r.n. and levalbuterol neb treatments q. 4 p.r.n., which she states she usually takes about 3 times per day. In spite of her severe disease the patient continues to smoke. She admits to smoking 6 cigarettes per day. She states to make them last she will usually smokes about a half a cigarette at a time. The patient states she did not start smoking until age 42 and most of the time in the last 34 years she has smoked about a pack per day. She denies any alcohol use. PAST SURGICAL HISTORY: 1. Cataract surgery bilaterally. 2. Tonsillectomy. PAST MEDICAL HISTORY: 1. COPD as noted. 2. Panic attacks. 3. Allergic rhinitis. 4. Glaucoma. 5. Hypertension. 6. Hypothyroidism. 7. Osteoporosis. 8. SIADH. 9. Childbirth x5. ALLERGIES: LISTED ALLERGIES TO LEVOFLOXACIN WHICH REPORTEDLY CAUSED ANAPHYLAXIS, PENICILLIN, SULFA, VANCOMYCIN, CODEINE, AND SHE IS ALLERGIC TO SHELLFISH. She told me she had not had a CAT scan dye before but I did find a record that she had a CT angio I believe in December 2015, apparently without problems. 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 She had worked for 3 or 4 years in a [employer]. FAMILY HISTORY: Positive for hypertension and gallbladder disease. REVIEW OF SYSTEMS: GENERAL: The patient has been very anxious as noted. She denies syncope or near syncope. The patient lives with her daughter. OPHTHALMIC: No visual complaints. ENT: Denies nasal symptoms at present. No sore throat. CARDIAC: No palpitations. PULMONARY: Complaints as noted. GASTROINTESTINAL: Denies nausea, vomiting or diarrhea. She does have chronic constipation. GENITOURINARY: Denies urinary complaints. EXTREMITIES: She has the low back pain as mentioned above. There have been no rashes or edema. LYMPH: Denies lymphadenopathy. Review of systems is otherwise negative. Ten systems were reviewed. PHYSICAL EXAMINATION: GENERAL: The patient is a 76-year-old female who was cooperative, alert and oriented. She was in no distress at rest. She was sleeping when I actually first came into the room, but she awakened and oriented very quickly. VITAL SIGNS: Temperature is 37.1. Her weight is only 36.1 kilograms for BMI of 16.6. HEENT: Eye exam showed implants. Nares were clear. Mouth exam showed teeth in suboptimal repair. NECK: Palpation in the neck reveals no lymph nodes or masses. CHEST: Normal development. Blood pressure 107/62. Heart rate is 98 per minute. Rhythm was regular. Breath sounds were diffusely diminished. She had prolongation to the expiratory phase of respiration. No active wheezing were heard at present. Oxygen saturation was 95% on 3 liter nasal cannula. ABDOMEN: Soft. Bowel sounds were present and were normal. There was no tenderness to palpation, masses or organomegaly. EXTREMITIES: Showed no cyanosis, clubbing or edema. She has an area of ecchymosis on the right leg. She states she bruised this recently. She does say that she bruises easily. This again on the arms is thin. IMAGING DATA: The patient's chest x-ray shows significant emphysema with probable bolus formation in the upper lung crenshaw. No infiltrates were noted. Venous Doppler was negative. LABORATORY DATA: White count was 17.55, hemoglobin 14.6, platelets 255,000. D-dimer was slightly elevated at 530. If corrected for her age, this may actually be within the limits of normal. Coags are normal. Blood gas showed a pH of 7.43 with a pCO2 of 39 and pO2 of 291 done on 50% oxygen. Her electrolytes show sodium 136, potassium 4.1, chloride 98, bicarbonate 27. The BUN was 15 with a creatinine of 0.8. Her lactic acid level venous was 1.24. BNP was 423. Troponin was negative. IMPRESSION: 1. Chronic obstructive pulmonary disease with exacerbation. 2. Emphysema. 3. Anxiety. COMMENTS AND RECOMMENDATIONS: The patient seems to be much improved. She is scheduled for a CTA. She also had a CTA on 01/05/2016. At that time she apparently did not have any trouble with the dye. She is currently treated with fluticasone nasal spray, Tiotropium, methylprednisolone 60 mg IV q. 6, subQ heparin, doxycycline, Advair, levalbuterol and ipratropium every 6 hours, as well as her usual medicines. I agree with her current treatment as present particularly in light of her significant improvement. Obviously a big issue for the patient is her continued smoking. I spoke to her at length about this. She obviously feels she cannot quit which is part of her problem. She also appears somewhat cachectic. Perhaps dietary consult might be of benefit or at least supplementing her with Boost or Ensure or some similar products may help her somewhat. Thank you very much for asking me to assist in her care.
--- NOTE | 2016-05-13 09:57 | DIAGNOSTIC IMAGING REPORT ---
CHEST CTA for PULMONARY ARTERIES CT DOSE: 206.86 mGy.cm HISTORY: Atypical chest pain. TECHNIQUE: Multiaxial CT images of the chest were performed following the intravenous administration of contrast to evaluate the pulmonary arteries. Maximal intensity projection images were also obtained. COMPARISON STUDY: Chest CTA 01/03/2016. FINDINGS: There is a normal caliber thoracic aorta with no evidence for dissection. There is no evidence for pulmonary embolus. No pleural effusions. No pneumothorax. The liver and spleen are unremarkable. No mediastinal or hilar lymphadenopathy. The central airways are patent. Severe emphysema. No focal lung consolidations to suggest pneumonia. IMPRESSION: No evidence for pulmonary embolus. Severe emphysema. Electronically signed by: Erik Christensen M.D. 05/13/2016 9:55 AM Dictated Date/Time: 05/13/2016 9:45 AM
[2016-05-13] MEDS ORDERED: PERFLUTREN LIPID MICROSPHERE (DEFINITY) IV ONE (10:45)
--- NOTE | 2016-05-13 11:50 | ECHOCARDIOGRAM REPORT ---
*NOTICE TO RECEIVING REPUBLICAN AGENCY This information is strictly Confidential and protected under [place] law. [place] law prohibits you from making any further disclosure of this information unless further disclosure is expressly permitted by the written consent of the person to whom it pertains or is authorized by law. A general authorization for the release of medical or other information is not sufficient for this purpose. Hospital accepts no responsibility if the information is made available to any other person, INCLUDING THE PATIENT. Interpretation Summary * Name: ASHLI LEMOS Study Date: 05/13/2016 10:21 AM BP: 107/62 mmHg * Patient Location: C.2T\S\S242\S\2 HR: 97 * : 1940 (M/d/yyy) Gender: Female Height: 58 in * Age: 76 yrs Ethnicity: [place] Weight: 79 lb * Ordering Physician: Mechelle Melton * Referring Physician: Self, Referred * Performed By: Lam Weston RDCS * * Reason For Study: Tachycardia * BSA: 1.2 m2 * The study was technically adequate. * Compared to prior study, there is no significant change. * -- Conclusions -- * Left ventricular systolic function is normal. * Ejection Fraction = 60-65%. * There is trace mitral regurgitation. * There is trace tricuspid regurgitation. * Doppler findings do not suggest pulmonary hypertension. * Grade I diastolic dysfunction, (abnormal relaxation pattern). Procedure Details * A complete two-dimensional transthoracic echocardiogram was performed (2D, M-mode, Doppler and color flow Doppler). * The study was technically limited. * There were technical limitations due to patient'sPoor acoustic windows secondary to severe lung disease. * The study was technically difficult, but visualization was adequate with the administration of Definity ultrasound contrast. Left Ventricle * The left ventricle is normal in size. * There is no thrombus. * There is normal left ventricular wall thickness. * Left ventricular systolic function is normal. * Ejection Fraction = 60-65%. * No regional wall motion abnormalities noted. Right Ventricle * The right ventricle is normal size. * The right ventricular systolic function is normal as assessed by tricuspid annular plane systolic excursion (TAPSE) (normal >1.5 cm). Atria * The left atrial size is normal. * Right atrial size is normal. * There is no evidence of atrial septal defect, but resolution does not allow assessment for a patent foramen ovale. Mitral Valve * The mitral valve is normal. * There is no mitral valve stenosis. * There is trace mitral regurgitation. Tricuspid Valve * The tricuspid valve is normal. * There is no tricuspid stenosis. * There is trace tricuspid regurgitation. * Doppler findings do not suggest pulmonary hypertension. Aortic Valve * The aortic valve is trileaflet. * Aortic stenosis is absent. * There is no significant aortic regurgitation. Pulmonic Valve * The pulmonary valve is not well seen, but the Doppler examination is normal without significant regurgitation or stenosis. Great Vessels * The aortic root is normal size. Pericardium/Pleural * There is no pericardial effusion. Great Vessels * Normal inferior vena cava diameter and respiratory variation suggests normal central venous pressure. Left Ventricular Diastolic Function * Grade I diastolic dysfunction, (abnormal relaxation pattern). MMode 2D Measurements and Calculations IVSd 1.1 cm IVSs 1.4 cm LVIDd 3.2 cm LVIDs 2.2 cm LVPWd 1.1 cm LVPWs 1.5 cm IVS/LVPW 0.93 FS 33.4 % EDV(Teich) 42.1 ml ESV(Teich) 15.4 ml EF(Teich) 63.4 % EDV(cubed) 33.9 ml ESV(cubed) 10.0 ml EF(cubed) 70.4 % % IVS thick 34.6 % % LVPW thick 31.6 % LV mass(C)d 105.4 grams LV mass(C)dI 85.9 grams/m\S\2 LV mass(C)s 100.8 grams LV mass(C)sI 82.1 grams/m\S\2 SV(Teich) 26.7 ml SI(Teich) 21.7 ml/m\S\2 SV(cubed) 23.8 ml SI(cubed) 19.4 ml/m\S\2 EPSS 0.44 cm Ao root diam 2.6 cm Ao root area 5.4 cm\S\2 ACS 1.4 cm LA dimension 2.1 cm asc Aorta Diam 1.8 cm LA/Ao 0.81 LVOT diam 1.6 cm LVOT area 1.9 cm\S\2 LVAd ap4 16.5 cm\S\2 LVLd ap4 5.8 cm EDV(MOD-sp4) 39.0 ml LVAs ap4 8.5 cm\S\2 LVLs ap4 4.7 cm ESV(MOD-sp4) 13.0 ml EF(MOD-sp4) 66.7 % LVAd ap2 16.4 cm\S\2 LVLd ap2 5.3 cm EDV(MOD-sp2) 39.0 ml LVAs ap2 8.6 cm\S\2 LVLs ap2 4.5 cm ESV(MOD-sp2) 13.0 ml EF(MOD-sp2) 66.7 % SV(MOD-sp4) 26.0 ml SI(MOD-sp4) 21.2 ml/m\S\2 SV(MOD-sp2) 26.0 ml SI(MOD-sp2) 21.2 ml/m\S\2 Doppler Measurements and Calculations MV E max zonia 61.5 cm/sec MV A max zonia 85.7 cm/sec MV E/A 0.72 MV dec time 0.25 sec Ao V2 max 107.0 cm/sec Ao max PG 4.6 mmHg Ao max PG (full) 2.1 mmHg CONNIE(V,A) 1.4 cm\S\2 CONNIE(V,D) 1.4 cm\S\2 LV V1 max PG 2.5 mmHg LV V1 max 79.0 cm/sec PA V2 max 92.5 cm/sec PA max PG 3.4 mmHg TR max zonia 233.5 cm/sec
--- NOTE | 2016-05-13 12:22 | Progress Note ---
Medicine Progress Note Date & Time of Visit: May 13, 2016 at 12:22. (Perla Weston PA-C) Subjective Patient seen and examined with daughter at bedside. Admitted yesterday for COPD exacerbation/ acute respiratory failure requiring BIPAP. Patient reports feeling much. Is saturating well on 2L NC. Denies SOB at rest. Still SOB with minimal activity. Still has some cough. Also complaining of low back pain - states this is somewhat chronic, rates it as 3/10, a dull ache. Does not want pain medications for it d/t side effects. Also reports some acid reflux with lunch states she sometimes takes a PPI. Denies fevers, chills, chest pain, nausea, vomiting, diarrhea, dysuria, calf pain and edema. All questions answered at this time. (Perla Weston PA-C) Objective Last 8 Hrs Date Time Temp Pulse Resp B/P Pulse Ox O2 Delivery O2 Flow Rate FiO2 05/13/16 12:00 Nasal Cannula 3.0 BiPAP 05/13/16 11:52 36.4 106 18 143/81 97 Nasal Cannula 2.0 05/13/16 11:00 95 05/13/16 08:00 96 Nasal Cannula 3.0 BiPAP 05/13/16 07:50 36.8 97 16 126/78 96 Nasal Cannula 2.0 05/13/16 07:10 99 20 95 Nasal Cannula 3.0 Physical Exam: General-Very pleasant frail appearing 76 year old female sitting in bed eating lunch in NAD Eyes-Sclera normal, EOMI ENT-mucosa moist, hearing grossly intact Neck-supple, no JVD Lungs-no accessory muscle use, poor air entry, decreased breath sounds, trace wheezing Heart-RRR, no murmur, gallop or rub. Abdomen-normoactive x 4, soft NT BACK - mild tenderness to palpation left lower back, no ecchymosis, muscle spasm , rashes noted. Extremities-pulses intact, no calf pain, no edema Neuro-A&Ox4 Laboratory Results: Last 24 Hours Test 05/12/16 15:30 05/12/16 15:32 05/12/16 15:36 05/12/16 15:41 White Blood Count 17.55 K/uL Red Blood Count 4.33 M/uL Hemoglobin 14.6 g/dL Hematocrit 41.5 % Mean Corpuscular Volume 95.8 fL Mean Corpuscular Hemoglobin 33.7 pg Mean Corpuscular Hemoglobin Concent 35.2 g/dl Platelet Count 255 K/uL Mean Platelet Volume 9.4 fL Neutrophils (%) (Auto) 75.6 % Lymphocytes (%) (Auto) 16.3 % Monocytes (%) (Auto) 6.2 % Eosinophils (%) (Auto) 0.3 % Basophils (%) (Auto) 0.1 % Neutrophils # (Auto) 13.26 K/uL Lymphocytes # (Auto) 2.86 K/uL Monocytes # (Auto) 1.09 K/uL Eosinophils # (Auto) 0.05 K/uL Basophils # (Auto) 0.02 K/uL RDW Standard Deviation 52.6 fL RDW Coefficient of Variation 15.0 % Immature Granulocyte % (Auto) 1.5 % Immature Granulocyte # (Auto) 0.27 K/uL Prothrombin Time 9.4 SECONDS Prothromb Time International Ratio 0.9 Activated Partial Thromboplast Time 21.5 SECONDS Partial Thromboplastin Ratio 0.8 D-Dimer 530 ug/L FEU Sodium Level 136 mmol/L Potassium Level 4.0 mmol/L Chloride Level 100 mmol/L Carbon Dioxide Level 26 mmol/L Anion Gap 10.0 mmol/L 16.0 mmol/L Blood Urea Nitrogen 16 mg/dl Creatinine 0.90 mg/dl Est Creatinine Clear Calc Drug Dose 31.3 ml/min Estimated GFR () 73.0 Estimated GFR (Non- 63.0 BUN/Creatinine Ratio 17.3 Random Glucose 101 mg/dl Calcium Level 10.1 mg/dl Magnesium Level 1.9 mg/dl Bedside Hemoglobin 15.0 g/dl Bedside Hematocrit 44 % Bedside Sodium 136 mEq/L Bedside Potassium 4.1 mEq/L Bedside Chloride 98 mEq/L Bedside Total CO2 27 mEq/l Bedside Blood Urea Nitrogen 15 mg/dl Bedside Creatinine 0.8 mg/dl Bedside Glucose (other) 105 mg/dl Bedside Ionized Calcium (Dante) 1.27 mmol/l Bedside Lactic Acid Venous 1.24 mmol/L Bedside Troponin I 0.020 ng/ml IU-Qvo-D-Type Natriuretic Peptide 423 pg/ml Test 05/12/16 17:06 05/12/16 18:15 05/13/16 00:24 05/13/16 06:42 Arterial Blood pH 7.43 Arterial Blood Partial Pressure CO2 39 mmHg Arterial Blood Partial Pressure O2 291 mm/Hg Arterial Blood HCO3 26 mmol/L Arterial Blood Oxygen Saturation 99.8 % Arterial Blood Base Excess 1.5 mEq/L Arterial Blood Gas Delivery 50% Estiven Test POS Influenza Type A (RT-PCR) Neg for Influ A Influenza Type B (RT-PCR) Neg for Influ B Total Creatine Kinase 43 U/L 38 U/L Creatine Kinase MB 3.1 ng/ml 2.5 ng/ml Creatine Kinase MB Ratio 7.2 6.6 Troponin I < 0.015 ng/ml < 0.015 ng/ml White Blood Count 11.89 K/uL Red Blood Count 3.64 M/uL Hemoglobin 12.2 g/dL Hematocrit 34.6 % Mean Corpuscular Volume 95.1 fL Mean Corpuscular Hemoglobin 33.5 pg Mean Corpuscular Hemoglobin Concent 35.3 g/dl Platelet Count 176 K/uL Mean Platelet Volume 9.3 fL Neutrophils (%) (Auto) 91.8 % Lymphocytes (%) (Auto) 5.1 % Monocytes (%) (Auto) 1.9 % Eosinophils (%) (Auto) 0.0 % Basophils (%) (Auto) 0.1 % Neutrophils # (Auto) 10.92 K/uL Lymphocytes # (Auto) 0.61 K/uL Monocytes # (Auto) 0.22 K/uL Eosinophils # (Auto) 0.00 K/uL Basophils # (Auto) 0.01 K/uL RDW Standard Deviation 51.6 fL RDW Coefficient of Variation 14.8 % Immature Granulocyte % (Auto) 1.1 % Immature Granulocyte # (Auto) 0.13 K/uL Sodium Level 134 mmol/L Potassium Level 4.5 mmol/L Chloride Level 99 mmol/L Carbon Dioxide Level 22 mmol/L Anion Gap 13.0 mmol/L Blood Urea Nitrogen 35 mg/dl Creatinine 1.30 mg/dl Est Creatinine Clear Calc Drug Dose 24.5 ml/min Estimated GFR () 46.8 Estimated GFR (Non- 40.4 BUN/Creatinine Ratio 26.8 Random Glucose 103 mg/dl Calcium Level 8.9 mg/dl Magnesium Level 1.9 mg/dl Test 05/13/16 06:47 05/13/16 11:16 Bedside Glucose 107 mg/dl 104 mg/dl Date/Time Source Procedure Growth Status 05/12/16 16:04 Blood Blood Culture Pending Received 05/12/16 15:30 Blood Blood Culture Pending Received (Perla Weston, PAJuan) Assessment & Plan ACUTE EXACERBATION OF COPD -CXR without consolidation, check Flu PCR - negative -WBC 17K possibly secondary to steroid use, Lactate <2 on admission, leukocytosis improved to 11.8 -continue IV Solu-Medrol, Xopenex, doxycycline -Continue Spiriva, Advair -Required BIPAP yesterday - now saturating well on 2L NC, will need two step prior to discharge -Blood cultures, sputum cultures pending -CBC, PRP, Mg daily -Pulmonology on board - agreeable with current plan, input appreciated -Reiterated need for smoking cessation ACUTE RESPIRATORY FAILURE -secondary to COPD exacerbation- does not use oxygen at home -management as above SINUS TACHYCARDIA - improved -likely secondary to hypoxia, severe COPD exacerbation -CTA chest negative for PE -continue Tele monitoring overnight LOW BACK PAIN -check UA -warm compresses GERD -resume PPI MALNUTRITION -dietary consult placed DIARRHEA -check C. diff - not collected HYPOTHYROIDISM -continue Synthroid HTN -stable -continue Amlodipine ANXIETY - continue Ativan prn SIADH -sodium slightly low today -continue Sodium Tablets TOBACCO ABUSE -Cessation counseling given -Nicotine patch ordered AAA -2.6 cm on 04/2015 DVT PROPHYLAXIS: Sq heparin CODE STATUS: FULL CODE DISPO: pending Patient seen in collaboration with Dr. August Current Inpatient Medications: Current Inpatient Medications Medications (Trade) Dose Ordered Sig/Jhon Route Start Time Stop Time Status Last Admin Dose Admin Heparin Sodium (Porcine) (Heparin Sq 5000 Unit/0.5ml) 5,000 unit Q8H SQ 05/12/16 22:00 06/11/16 21:59 Acetaminophen (Tylenol Tab) 650 mg Q4H PRN PO 05/12/16 16:30 06/11/16 16:29 Al Hydrox/Mg Hydrox/Simethicone (Maalox Max Susp) 15 ml Q4H PRN PO 05/12/16 16:30 06/11/16 16:29 Magnesium Hydroxide (Milk Of Magnesia Susp) 30 ml Q12H PRN PO 05/12/16 16:30 06/11/16 16:29 Ondansetron HCl (Zofran Inj) 4 mg Q6H PRN IV 05/12/16 16:30 06/11/16 16:29 Polyethylene (Miralax Powder Packet) 17 gm DAILY PRN PO 05/12/16 16:30 06/11/16 16:29 Glucose (Glucose 40% Gel) 15-30 GRAMS 15 GRAMS... UD PRN PO 05/12/16 16:30 06/11/16 16:29 Glucose (Glucose Chew Tab) 4-8 Tablets 4 Tabl... UD PRN PO 05/12/16 16:30 06/11/16 16:29 Dextrose (Dextrose 50% 50ML Syringe) 25-50ML OF 50% DW IV FOR... UD PRN IV 05/12/16 16:30 06/11/16 16:29 Glucagon (Glucagon Inj) 1 mg UD PRN SQ 05/12/16 16:30 06/11/16 16:29 Doxycycline Hyclate (Vibramycin Cap) 100 mg BID PO 05/12/16 21:00 05/19/16 20:59 05/13/16 08:15 100 MG Polyethylene (Miralax Powder Packet) 17 gm BID PO 05/12/16 21:00 06/11/16 20:59 Docusate Sodium (coLACE CAP) 100 mg BID PO 05/12/16 21:00 06/11/16 20:59 05/13/16 08:16 100 MG Bisacodyl (Dulcolax Supp) 10 mg DAILY PRN ND 05/12/16 16:30 06/11/16 16:29 Albuterol (Ventolin Hfa Inhaler) 2 puffs Q4H PRN INH 05/12/16 16:30 06/11/16 16:29 Amlodipine Besylate (Norvasc Tab) 2.5 mg DAILY PO 05/13/16 09:00 06/12/16 08:59 05/13/16 08:15 2.5 MG Salmeterol Xinafoate/ Fluticasone (Advair Diskus 500/50 Inh) 1 puff BID INH 05/12/16 21:00 06/11/16 20:59 05/13/16 08:17 1 PUFF Fluticasone Propionate (Flonase Nasal [place]) 2 sprays DAILY NADIA 05/13/16 09:00 06/12/16 08:59 05/13/16 08:18 2 SPRAYS Lactulose (Chronulac Syrup) 10 gm BID PRN PO 05/12/16 16:30 06/11/16 16:29 Levothyroxine Sodium (Synthroid Tab) 75 mcg DAILYBB PO 05/13/16 06:00 06/12/16 05:59 05/13/16 05:37 75 MCG Loratadine (Claritin Tab) 10 mg DAILY PO 05/13/16 09:00 06/12/16 08:59 05/13/16 08:17 10 MG Lorazepam (Ativan Tab) 0.5 mg BID PO 05/12/16 21:00 06/11/16 20:59 05/13/16 08:21 0.5 MG Potassium Chloride (Klor-Con M10) 10 meq BIDM PO 05/12/16 19:00 06/11/16 18:59 05/13/16 08:19 10 MEQ Sodium Chloride (Sodium Chloride Tab) 1 gm TID PO 05/12/16 21:00 06/11/16 20:59 05/13/16 08:14 1 GM Tiotropium [place] (Spiriva Handihaler Inhaler) 1 puff QAM INH 05/13/16 09:00 06/12/16 08:59 05/13/16 08:18 1 PUFF Travoprost (Travatan Z) 1 drops HS OPB 05/12/16 21:00 06/11/16 20:59 05/12/16 20:36 1 DROPS Ipratropium [place] (Atrovent 0.02% 0.5MG/2.5ML Neb) 0.5 mg Q6R INH 05/12/16 21:00 06/11/16 20:59 05/13/16 07:09 0.5 MG Levalbuterol 1.25 mg 1.25 mg Q6R INH 05/12/16 21:00 06/11/16 20:59 05/13/16 07:10 1.25 MG Methylprednisolone Sodium Succinate/ Syringe (Solu-Medrol IV/ Syringe) 0.96 ml @ 1.5 mls/min Q6H IV 05/13/16 00:00 06/12/16 00:00 05/13/16 05:37 1.5 MLS/MIN Ioversol (Optiray 320) 111 ml UD PRN IV 05/13/16 07:45 05/17/16 07:44 (Perla Weston, PAClaudiaC) I have seen and examined this patient and discussed the plan with the provider above. I agree with the assessment and plan as stated. Dionne August DO (Dionne August, DO)
[2016-05-13] MEDS ORDERED: PANTOprazole SOD 40 MG TAB PO ONE (13:30)
[2016-05-13 15:38] LABS: URINE APPEARANCE CLEAR (CLEAR); URINE BILIRUBIN NEG (NEG); URINE COLOR YELLOW; URINE NITRITE NEG (NEG); URINE SPECIFIC GRAVITY > 1.045 (1.000-1.030); UROBILINOGEN NEG (NEG); ZZUR CULT IF INDIC CLEAN CATCH NO
[2016-05-13 15:51] LABS: MANUAL MICROSCOPIC REQUIRED? NO; REVIEW REQ? NO
--- NOTE | 2016-05-13 16:41 | Progress Note ---
Progress Note I have examined the patient and have discussed the case with GABRIELLE Pearce. I agree with her assessment and plan. The patient appears better today. Per pulm with cont with Flonase, Tiotropium, IV steroids, Doxycycline, Advair and Duonebs. She is on oxygen via NC and will require a repeat two-step before discharge. Appreciate pulm following this patient. Advocated smoking cessation strongly to her, and although she states she is interested in quitting , she can't commit to any agents such as nicotine replacement or Chantix at this time. At the patient's request, I called her daughter Michael over the phone and updated her. I answered all of her questions and discussed the plan. Cont tele monitoring. Dionne August DO [facility] Hospitalist
[2016-05-13] MEDS: TRAVOPROST Z 0.004% OPH SOLN 2.5 ML BTL OPB SCH (20:43)
[2016-05-14] VITALS (14 sets, daily range): BP systolic 131–155; BP diastolic 71–79; PULSE 90–116; TEMP 36.6–37.1; O2SAT 94–98
[2016-05-14] MEDS: IPRATROPIUM BROMIDE NEB SOLN 0.02% 2.5 ML VIAL INH SCH ×4 (01:47→19:31)
[2016-05-14] MEDS: LEVALBUTEROL 1.25MG/0.5ML NEB INH SCH ×4 (01:47→19:31)
[2016-05-14] MEDS: LEVOTHYROXINE 75 MCG TAB PO SCH (05:52)
[2016-05-14] MEDS: METHYLPREDNISOLONE IV 60 MG in SYRINGE 0 ML IV SCH ×3 (05:52→18:01)
[2016-05-14] MEDS: HEPARIN SOD 5000 UNIT/0.5 ML CARP SQ SCH ×3 (06:00→21:37)
[2016-05-14 06:49] LABS: COMPLETE YES; HEMATOCRIT 31.4 % (37-47); IG% 0.6 %; LYMPH % 6.1 %; LYMPH ABS # 0.63 K/uL (1.2-3.4); MEAN CELL VOLUME 95.7 fL (80-100); MEAN CORPUSCULAR HEMOGLOBIN 33.5 pg (25-34); MEAN PLATELET VOLUME 9.2 fL (7.4-10.4); MONO % 3.6 %; NEUT % 89.7 %; PLATELET COUNT 160 K/uL (130-400); RED BLOOD COUNT 3.28 M/uL (4.2-5.4); WHITE BLOOD COUNT 10.39 K/uL (4.8-10.8)
[2016-05-14 07:30] LABS: BUN/CREATININE RATIO 34.9 (10-20); CALCIUM 8.3 mg/dl (8.5-10.1); CREATININE 0.98 mg/dl (0.60-1.20); MAGNESIUM 1.9 mg/dl (1.8-2.4); POTASSIUM 4.1 mmol/L (3.5-5.1)
[2016-05-14] MEDS: LORATADINE 10 MG TAB PO SCH (08:00)
[2016-05-14] MEDS: DOCUSATE SODIUM 100 MG CAP PO SCH ×2 (08:02→20:46)
[2016-05-14] MEDS: DOXYCYCLINE HYCLATE 100 MG CAP PO SCH ×2 (08:02→20:47)
[2016-05-14] MEDS: AMLODIPINE BESYLATE 5 MG TAB PO SCH (08:02)
[2016-05-14] MEDS: POTASSIUM CHLORIDE 10 MEQ TABCR PO SCH ×2 (08:04→17:07)
[2016-05-14] MEDS: PANTOprazole SOD 40 MG TAB PO SCH (08:04)
[2016-05-14] MEDS: SODIUM CHLORIDE 1 GM TAB PO SCH ×3 (08:04→20:47)
[2016-05-14] MEDS: TIOTROPIUM BROMIDE 5 PUFF/90 MCG INH INH SCH (08:05)
[2016-05-14] MEDS: FLUTICASONE/SALMETEROL (ADVAIR) 500/50 INH 14 PUFF INH SCH ×2 (08:05→20:44)
[2016-05-14] MEDS: POLYETHYLENE (MIRALAX) 17 GM PACK PO SCH ×2 (08:06→20:46)
[2016-05-14] MEDS: FLUTICASONE PROPIONATE NA SPR 16 GM BTL NAE SCH (08:06)
[2016-05-14] MEDS: LORAZEPAM 0.5 MG TAB PO SCH ×2 (08:08→20:00)
[2016-05-14] MEDS ORDERED: LIDODERM (LIDOCAINE) PATCH 5% TD SCH (15:45)
[2016-05-14] MEDS: LIDODERM (LIDOCAINE) PATCH 5% TD SCH (19:52)
[2016-05-14] MEDS ORDERED: LOPERAMIDE HCL 2 MG CAP PO PRN (20:45)
[2016-05-14] MEDS: TRAVOPROST Z 0.004% OPH SOLN 2.5 ML BTL OPB SCH (20:45)
--- NOTE | 2016-05-14 20:48 | Progress Note ---
Medicine Progress Note Date & Time of Visit: May 14, 2016 at 15:32. Subjective no wheezing on exam breathing is better except when she exerts herself ambulating She comp of lower back pain x 2 weeks--xray taken, hasn't tried anything for pain Also has intermittent neck pain that is not bothering her right now. Discussed options and agreed for lidocaine patch first, then to try tramadol Has a problem with Tylenol-states "it makes me high" transfer to med/surg awaiting pulm daily eval for changes with meds Objective Last 8 Hrs Date Time Temp Pulse Resp B/P Pulse Ox O2 Delivery O2 Flow Rate FiO2 05/14/16 14:28 116 20 98 Nasal Cannula 3.0 05/14/16 12:18 36.7 110 20 134/79 94 Nasal Cannula 3.0 05/14/16 12:00 Nasal Cannula 3.0 BiPAP 05/14/16 11:30 98 05/14/16 08:00 Nasal Cannula 3.0 BiPAP 05/14/16 07:44 36.6 98 20 149/73 96 Nasal Cannula 3.0 Physical Exam: GEN: WNWD, in no acute distress, alert and appropriate, no conversational dyspnea on oxygen HEENT: NC/AT, normal sclerae CARDIO: reg rate, S1/2 heard without m/g/r LUNGS: CTA bilaterally, no crackles, rales or wheezes, good diaphragmatic excursion ABD: soft, non-tender, non-distended, no rebound or guarding EXTREMITY: no LE swelling or edema, extremities are warm and well-perfused NEURO: CN 2-12 grossly intact MUSC: no gross focal deficits SKIN: warm and dry Laboratory Results: Last 24 Hours Test 05/13/16 20:32 05/14/16 06:36 05/14/16 06:50 05/14/16 11:28 Bedside Glucose 122 mg/dl 99 mg/dl 129 mg/dl White Blood Count 10.39 K/uL Red Blood Count 3.28 M/uL Hemoglobin 11.0 g/dL Hematocrit 31.4 % Mean Corpuscular Volume 95.7 fL Mean Corpuscular Hemoglobin 33.5 pg Mean Corpuscular Hemoglobin Concent 35.0 g/dl Platelet Count 160 K/uL Mean Platelet Volume 9.2 fL Neutrophils (%) (Auto) 89.7 % Lymphocytes (%) (Auto) 6.1 % Monocytes (%) (Auto) 3.6 % Eosinophils (%) (Auto) 0.0 % Basophils (%) (Auto) 0.0 % Neutrophils # (Auto) 9.33 K/uL Lymphocytes # (Auto) 0.63 K/uL Monocytes # (Auto) 0.37 K/uL Eosinophils # (Auto) 0.00 K/uL Basophils # (Auto) 0.00 K/uL RDW Standard Deviation 52.0 fL RDW Coefficient of Variation 14.8 % Immature Granulocyte % (Auto) 0.6 % Immature Granulocyte # (Auto) 0.06 K/uL Sodium Level 135 mmol/L Potassium Level 4.1 mmol/L Chloride Level 102 mmol/L Carbon Dioxide Level 22 mmol/L Anion Gap 11.0 mmol/L Blood Urea Nitrogen 34 mg/dl Creatinine 0.98 mg/dl Est Creatinine Clear Calc Drug Dose 30.1 ml/min Estimated GFR () 65.9 Estimated GFR (Non- 56.8 BUN/Creatinine Ratio 34.9 Random Glucose 91 mg/dl Calcium Level 8.3 mg/dl Magnesium Level 1.9 mg/dl Date/Time Source Procedure Growth Status 05/14/16 11:05 Stool C.difficile Toxin B Gene (PCR) - Final No C. difficile toxin B gene detected Complete 05/13/16 23:50 Sputum Expectorated Sputum Gram Stain - Final Complete 05/13/16 23:50 Sputum Expectorated Sputum Sputum Culture - Final Complete Assessment & Plan ACUTE EXACERBATION OF COPD -CXR without consolidation, Flu PCR - negative -WBC 17K possibly secondary to steroid use, Lactate <2 on admission, leukocytosis resolved -switch IV steroids to PO prednisone (05/14), Cont doxycycline-pulm following -Continue Spiriva, Advair, Ventolin -Required BIPAP on admisson - now saturating well on 2L NC, will need two step prior to discharge -Blood cultures, sputum cultures negative to date -CBC, PRP, Mg daily -Reiterated need for smoking cessation ACUTE RESPIRATORY FAILURE -secondary to COPD exacerbation- does not use oxygen at home -management as above SINUS TACHYCARDIA - improved -likely secondary to hypoxia, severe COPD exacerbation, steroid use -CTA chest negative for PE LOW BACK PAIN -acute-began two weeks ago, nontraumatic -UA negative -xrays earlier this month reveal degenerative changes -likely MSK vs arthritic changes -heat not working, started Lidocane patch (05/14) -cannot tolerate APAP -->if lidocaine doesn't work would try Tramadol GERD: stable cont PPI MALNUTRITION: dietary consult placed , added MVI, liberalized diet to regular per recs DIARRHEA -improved today but not completely resolved. -c-diff negative -Imodium PRN HYPOTHYROIDISM -continue Synthroid HTN -stable -continue Amlodipine ANXIETY - continue Ativan prn h/o SIADH -continue Sodium Tablets as outpatient TOBACCO ABUSE -Cessation counseling given -Nicotine patch ordered AAA -2.6 cm on 04/2015 DVT PROPHYLAXIS: Sq heparin CODE STATUS: FULL CODE DISPO: uncertain at this time, awaiting pulm reassessment and recommendations. Transfer off telemetry at this time. DO [facility] Hospitalist Consultants: Pulm Current Inpatient Medications: Current Inpatient Medications Medications (Trade) Dose Ordered Sig/Jhon Route Start Time Stop Time Status Last Admin Dose Admin Heparin Sodium (Porcine) (Heparin Sq 5000 Unit/0.5ml) 5,000 unit Q8H SQ 05/12/16 22:00 06/11/16 21:59 Acetaminophen (Tylenol Tab) 650 mg Q4H PRN PO 05/12/16 16:30 06/11/16 16:29 Al Hydrox/Mg Hydrox/Simethicone (Maalox Max Susp) 15 ml Q4H PRN PO 05/12/16 16:30 06/11/16 16:29 Magnesium Hydroxide (Milk Of Magnesia Susp) 30 ml Q12H PRN PO 05/12/16 16:30 06/11/16 16:29 Ondansetron HCl (Zofran Inj) 4 mg Q6H PRN IV 05/12/16 16:30 06/11/16 16:29 Polyethylene (Miralax Powder Packet) 17 gm DAILY PRN PO 05/12/16 16:30 06/11/16 16:29 Glucose (Glucose 40% Gel) 15-30 GRAMS 15 GRAMS... UD PRN PO 05/12/16 16:30 06/11/16 16:29 Glucose (Glucose Chew Tab) 4-8 Tablets 4 Tabl... UD PRN PO 05/12/16 16:30 06/11/16 16:29 Dextrose (Dextrose 50% 50ML Syringe) 25-50ML OF 50% DW IV FOR... UD PRN IV 05/12/16 16:30 06/11/16 16:29 Glucagon (Glucagon Inj) 1 mg UD PRN SQ 05/12/16 16:30 06/11/16 16:29 Doxycycline Hyclate (Vibramycin Cap) 100 mg BID PO 05/12/16 21:00 05/19/16 20:59 05/14/16 08:02 100 MG Polyethylene (Miralax Powder Packet) 17 gm BID PO 05/12/16 21:00 06/11/16 20:59 05/13/16 20:46 17 GM Docusate Sodium (coLACE CAP) 100 mg BID PO 05/12/16 21:00 06/11/16 20:59 05/14/16 08:02 100 MG Bisacodyl (Dulcolax Supp) 10 mg DAILY PRN DC 05/12/16 16:30 06/11/16 16:29 Albuterol (Ventolin Hfa Inhaler) 2 puffs Q4H PRN INH 05/12/16 16:30 06/11/16 16:29 Amlodipine Besylate (Norvasc Tab) 2.5 mg DAILY PO 05/13/16 09:00 06/12/16 08:59 05/14/16 08:02 2.5 MG Salmeterol Xinafoate/ Fluticasone (Advair Diskus 500/50 Inh) 1 puff BID INH 05/12/16 21:00 06/11/16 20:59 05/14/16 08:05 1 PUFF Fluticasone Propionate (Flonase Nasal [place]) 2 sprays DAILY NADIA 05/13/16 09:00 06/12/16 08:59 05/14/16 08:06 2 SPRAYS Lactulose (Chronulac Syrup) 10 gm BID PRN PO 05/12/16 16:30 06/11/16 16:29 Levothyroxine Sodium (Synthroid Tab) 75 mcg DAILYBB PO 05/13/16 06:00 06/12/16 05:59 05/14/16 05:52 75 MCG Loratadine (Claritin Tab) 10 mg DAILY PO 05/13/16 09:00 06/12/16 08:59 05/14/16 08:00 10 MG Lorazepam (Ativan Tab) 0.5 mg BID PO 05/12/16 21:00 06/11/16 20:59 05/14/16 08:08 0.5 MG Potassium Chloride (Klor-Con M10) 10 meq BIDM PO 05/12/16 19:00 06/11/16 18:59 05/14/16 08:04 10 MEQ Sodium Chloride (Sodium Chloride Tab) 1 gm TID PO 05/12/16 21:00 06/11/16 20:59 05/14/16 13:52 1 GM Tiotropium [place] (Spiriva Handihaler Inhaler) 1 puff QAM INH 05/13/16 09:00 06/12/16 08:59 05/14/16 08:05 1 PUFF Travoprost (Travatan Z) 1 drops HS OPB 05/12/16 21:00 06/11/16 20:59 05/13/16 20:43 1 DROPS Ipratropium [place] (Atrovent 0.02% 0.5MG/2.5ML Neb) 0.5 mg Q6R INH 05/12/16 21:00 06/11/16 20:59 05/14/16 14:28 0.5 MG Levalbuterol 1.25 mg 1.25 mg Q6R INH 05/12/16 21:00 06/11/16 20:59 05/14/16 14:28 1.25 MG Methylprednisolone Sodium Succinate/ Syringe (Solu-Medrol IV/ Syringe) 0.96 ml @ 1.5 mls/min Q6H IV 05/13/16 00:00 06/12/16 00:00 05/14/16 12:30 1.5 MLS/MIN Ioversol (Optiray 320) 111 ml UD PRN IV 05/13/16 07:45 05/17/16 07:44 Pantoprazole Sodium (Protonix Tab) 40 mg QAM PO 05/14/16 09:00 06/13/16 08:59 05/14/16 08:04 40 MG
--- NOTE | 2016-05-14 21:13 | Pulmonology Progress Note ---
Pulmonary Progress Note Date of Service May 14, 2016. 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 Will re-evaluate patient tomorrow and possible start Roflumilast and consider initiating NIV when the patient is stable/outpatient follow-up Data Medications: Current Inpatient Medications Medications (Trade) Dose Ordered Sig/Jhon Route Start Time Stop Time Status Last Admin Dose Admin Heparin Sodium (Porcine) (Heparin Sq 5000 Unit/0.5ml) 5,000 unit Q8H SQ 05/12/16 22:00 06/11/16 21:59 Acetaminophen (Tylenol Tab) 650 mg Q4H PRN PO 05/12/16 16:30 06/11/16 16:29 Al Hydrox/Mg Hydrox/Simethicone (Maalox Max Susp) 15 ml Q4H PRN PO 05/12/16 16:30 06/11/16 16:29 Magnesium Hydroxide (Milk Of Magnesia Susp) 30 ml Q12H PRN PO 05/12/16 16:30 06/11/16 16:29 Ondansetron HCl (Zofran Inj) 4 mg Q6H PRN IV 05/12/16 16:30 06/11/16 16:29 Polyethylene (Miralax Powder Packet) 17 gm DAILY PRN PO 05/12/16 16:30 06/11/16 16:29 Glucose (Glucose 40% Gel) 15-30 GRAMS 15 GRAMS... UD PRN PO 05/12/16 16:30 06/11/16 16:29 Glucose (Glucose Chew Tab) 4-8 Tablets 4 Tabl... UD PRN PO 05/12/16 16:30 06/11/16 16:29 Dextrose (Dextrose 50% 50ML Syringe) 25-50ML OF 50% DW IV FOR... UD PRN IV 05/12/16 16:30 06/11/16 16:29 Glucagon (Glucagon Inj) 1 mg UD PRN SQ 05/12/16 16:30 06/11/16 16:29 Doxycycline Hyclate (Vibramycin Cap) 100 mg BID PO 05/12/16 21:00 05/19/16 20:59 05/14/16 20:47 100 MG Polyethylene (Miralax Powder Packet) 17 gm BID PO 05/12/16 21:00 06/11/16 20:59 05/13/16 20:46 17 GM Docusate Sodium (coLACE CAP) 100 mg BID PO 05/12/16 21:00 06/11/16 20:59 05/14/16 20:46 100 MG Bisacodyl (Dulcolax Supp) 10 mg DAILY PRN [place] 05/12/16 16:30 06/11/16 16:29 Albuterol (Ventolin Hfa Inhaler) 2 puffs Q4H PRN INH 05/12/16 16:30 06/11/16 16:29 Amlodipine Besylate (Norvasc Tab) 2.5 mg DAILY PO 05/13/16 09:00 06/12/16 08:59 05/14/16 08:02 2.5 MG Salmeterol Xinafoate/ Fluticasone (Advair Diskus 500/50 Inh) 1 puff BID INH 05/12/16 21:00 06/11/16 20:59 05/14/16 20:44 1 PUFF Fluticasone Propionate (Flonase Nasal [place]) 2 sprays DAILY NADIA 05/13/16 09:00 06/12/16 08:59 05/14/16 08:06 2 SPRAYS Lactulose (Chronulac Syrup) 10 gm BID PRN PO 05/12/16 16:30 06/11/16 16:29 Levothyroxine Sodium (Synthroid Tab) 75 mcg DAILYBB PO 05/13/16 06:00 06/12/16 05:59 05/14/16 05:52 75 MCG Loratadine (Claritin Tab) 10 mg DAILY PO 05/13/16 09:00 06/12/16 08:59 05/14/16 08:00 10 MG Lorazepam (Ativan Tab) 0.5 mg BID PO 05/12/16 21:00 06/11/16 20:59 05/14/16 20:00 0.5 MG Potassium Chloride (Klor-Con M10) 10 meq BIDM PO 05/12/16 19:00 06/11/16 18:59 05/14/16 17:07 10 MEQ Sodium Chloride (Sodium Chloride Tab) 1 gm TID PO 05/12/16 21:00 06/11/16 20:59 05/14/16 20:47 1 GM Tiotropium [place] (Spiriva Handihaler Inhaler) 1 puff QAM INH 05/13/16 09:00 06/12/16 08:59 05/14/16 08:05 1 PUFF Travoprost (Travatan Z) 1 drops HS OPB 05/12/16 21:00 06/11/16 20:59 05/14/16 20:45 1 DROPS Ipratropium [place] (Atrovent 0.02% 0.5MG/2.5ML Neb) 0.5 mg Q6R INH 05/12/16 21:00 06/11/16 20:59 05/14/16 19:31 0.5 MG Levalbuterol (Xopenex 1.25MG/ 0.5ML Neb) 1.25 mg Q6R INH 05/12/16 21:00 06/11/16 20:59 05/14/16 19:31 1.25 MG Ioversol (Optiray 320) 111 ml UD PRN IV 05/13/16 07:45 05/17/16 07:44 Pantoprazole Sodium (Protonix Tab) 40 mg QAM PO 05/14/16 09:00 06/13/16 08:59 05/14/16 08:04 40 MG Miscellaneous (Remove Lidoderm Patch) 1 ea DAILY@21 N/A 05/14/16 21:00 06/13/16 20:59 Lidocaine (Lidoderm Patch 5%) 1 patch DAILY@0900 TD 05/15/16 09:00 06/13/16 15:44 05/14/16 19:52 1 PATCH Prednisone (PredniSONE TAB) 40 mg DAILY PO 05/15/16 09:00 06/14/16 08:59 Multivitamins (Multivitamin Tab) 1 tab QAM PO 05/15/16 09:00 06/14/16 08:59 Loperamide HCl (Imodium Cap) 2 mg UD PRN PO 05/14/16 20:45 06/13/16 20:44 I & O: 24-Hour Column 05/14/16 08:00 Intake Total 480 ml Output Total 1475 ml Balance -995 ml Vital Signs: Date Time Temp Pulse Resp B/P Pulse Ox O2 Delivery O2 Flow Rate FiO2 05/14/16 19:31 106 20 94 Nasal Cannula 2.0 05/14/16 19:11 37.1 97 18 131/77 94 Nasal Cannula 2.0 05/14/16 16:00 Nasal Cannula 3.0 BiPAP 05/14/16 14:28 116 20 98 Nasal Cannula 3.0 05/14/16 12:18 36.7 110 20 134/79 94 Nasal Cannula 3.0 05/14/16 12:00 Nasal Cannula 3.0 BiPAP 05/14/16 11:30 98 05/14/16 08:00 Nasal Cannula 3.0 BiPAP 05/14/16 07:44 36.6 98 20 149/73 96 Nasal Cannula 3.0 05/14/16 07:04 102 20 98 Nasal Cannula 3.0 05/14/16 04:13 36.8 105 17 139/73 96 Nasal Cannula 3.0 05/14/16 04:00 96 Nasal Cannula 3.0 05/14/16 01:47 90 20 97 Nasal Cannula 3.0 05/14/16 00:01 94 Nasal Cannula 2.0 05/13/16 23:59 36.9 90 17 118/63 94 Nasal Cannula 2.0 Laboratory Results: Last 24 Hours Test 05/14/16 06:36 05/14/16 06:50 05/14/16 11:28 05/14/16 16:55 White Blood Count 10.39 K/uL Red Blood Count 3.28 M/uL Hemoglobin 11.0 g/dL Hematocrit 31.4 % Mean Corpuscular Volume 95.7 fL Mean Corpuscular Hemoglobin 33.5 pg Mean Corpuscular Hemoglobin Concent 35.0 g/dl Platelet Count 160 K/uL Mean Platelet Volume 9.2 fL Neutrophils (%) (Auto) 89.7 % Lymphocytes (%) (Auto) 6.1 % Monocytes (%) (Auto) 3.6 % Eosinophils (%) (Auto) 0.0 % Basophils (%) (Auto) 0.0 % Neutrophils # (Auto) 9.33 K/uL Lymphocytes # (Auto) 0.63 K/uL Monocytes # (Auto) 0.37 K/uL Eosinophils # (Auto) 0.00 K/uL Basophils # (Auto) 0.00 K/uL RDW Standard Deviation 52.0 fL RDW Coefficient of Variation 14.8 % Immature Granulocyte % (Auto) 0.6 % Immature Granulocyte # (Auto) 0.06 K/uL Sodium Level 135 mmol/L Potassium Level 4.1 mmol/L Chloride Level 102 mmol/L Carbon Dioxide Level 22 mmol/L Anion Gap 11.0 mmol/L Blood Urea Nitrogen 34 mg/dl Creatinine 0.98 mg/dl Est Creatinine Clear Calc Drug Dose 30.1 ml/min Estimated GFR () 65.9 Estimated GFR (Non- 56.8 BUN/Creatinine Ratio 34.9 Random Glucose 91 mg/dl Calcium Level 8.3 mg/dl Magnesium Level 1.9 mg/dl Bedside Glucose 99 mg/dl 129 mg/dl 111 mg/dl Test 05/14/16 20:42 Bedside Glucose 125 mg/dl
[2016-05-15 00:03] VITALS: BP 125/67; PULSE 89; TEMP 36.6; O2SAT 91
[2016-05-15] MEDS: LEVALBUTEROL 1.25MG/0.5ML NEB INH SCH ×3 (02:26→14:25)
[2016-05-15] MEDS: IPRATROPIUM BROMIDE NEB SOLN 0.02% 2.5 ML VIAL INH SCH ×3 (02:26→14:25)
[2016-05-15] MEDS: HEPARIN SOD 5000 UNIT/0.5 ML CARP SQ SCH ×3 (05:23→20:36)
[2016-05-15 05:55] LABS: COMPLETE YES; HEMATOCRIT 30.5 % (37-47); IG% 0.8 %; LYMPH % 10.8 %; LYMPH ABS # 0.92 K/uL (1.2-3.4); MEAN CELL VOLUME 96.5 fL (80-100); MEAN CORPUSCULAR HEMOGLOBIN 32.6 pg (25-34); MEAN CORPUSCULAR HGB CONC 33.8 g/dl (32-36); MEAN PLATELET VOLUME 9.1 fL (7.4-10.4); MONO % 6.8 %; NEUT % 81.6 %; PLATELET COUNT 162 K/uL (130-400); RED BLOOD COUNT 3.16 M/uL (4.2-5.4)
[2016-05-15] MEDS: LEVOTHYROXINE 75 MCG TAB PO SCH (06:09)
[2016-05-15 06:22] LABS: CREATININE 0.96 mg/dl (0.60-1.20)
[2016-05-15 06:23] LABS: BUN/CREATININE RATIO 31.8 (10-20); CALCIUM 8.1 mg/dl (8.5-10.1); MAGNESIUM 2.1 mg/dl (1.8-2.4); POTASSIUM 4.2 mmol/L (3.5-5.1)
[2016-05-15] MEDS: POLYETHYLENE (MIRALAX) 17 GM PACK PO SCH ×2 (07:31→20:35)
[2016-05-15] MEDS: LIDODERM (LIDOCAINE) PATCH 5% TD SCH (07:37)
[2016-05-15] MEDS: DOXYCYCLINE HYCLATE 100 MG CAP PO SCH ×2 (07:38→20:35)
[2016-05-15] MEDS: SODIUM CHLORIDE 1 GM TAB PO SCH ×3 (07:38→20:35)
[2016-05-15] MEDS: AMLODIPINE BESYLATE 5 MG TAB PO SCH (07:38)
[2016-05-15] MEDS: LORATADINE 10 MG TAB PO SCH (07:39)
[2016-05-15] MEDS: TIOTROPIUM BROMIDE 5 PUFF/90 MCG INH INH SCH (07:39)
[2016-05-15] MEDS: DOCUSATE SODIUM 100 MG CAP PO SCH ×2 (07:39→20:35)
[2016-05-15] MEDS: POTASSIUM CHLORIDE 10 MEQ TABCR PO SCH ×2 (07:39→17:05)
[2016-05-15] MEDS: MULTIVITAMIN TAB PO SCH (07:39)
[2016-05-15] MEDS: PANTOprazole SOD 40 MG TAB PO SCH (07:39)
[2016-05-15] MEDS: FLUTICASONE/SALMETEROL (ADVAIR) 500/50 INH 14 PUFF INH SCH ×2 (07:40→20:35)
[2016-05-15] MEDS: LORAZEPAM 0.5 MG TAB PO SCH ×2 (07:40→20:35)
[2016-05-15] MEDS: FLUTICASONE PROPIONATE NA SPR 16 GM BTL NAE SCH (07:40)
[2016-05-15 07:42] VITALS: BP 158/81; PULSE 100; TEMP 36.4; O2SAT 97
[2016-05-15 08:02] VITALS: PULSE 108; O2SAT 97
--- NOTE | 2016-05-15 13:06 | Pulmonology Progress Note ---
Pulmonary Progress Note Date of Service May 15, 2016. Attending Zac Nelson Subjective Patient had slight improvement in her respiratory status but continued severe dyspnea on exertion Objective Patient was able to speak in full sentences and position herself throughout the bed with no notable tachypnea. It was noted during ambulation earlier without oxygen the patient became tachycardic into the 120s. VS: reviewed(SaO2) heart rate stable on 1-2 L nasal cannula) RESP: decreased BS bilaterally greatest at the apix CARDS: RRR with distant heart sounds #1 prednisone 40 mg daily #2 Flonase nasal spray 2 times daily #3 Spiriva one puff daily #4 Advair 500/50 one puff twice a day #5 Xopenex/Atrovent nebulizers #6 doxycycline 100 mg by mouth twice a day Microbiology reviewed 1) Expectorated sputum 08/18/14: MSSA Assessment & Plan 76 y/o female with very sever COPD FEV1: 35% and acute exacerbation: 1) COPD: Continue current medical regimen as well as prednisone at 40 mg by mouth twice a day. As an outpatient the patient's medical regimen includes azithromycin 3 times per week. Even though azithromycin has been proven to be more effective suggest we try rotating azithromycin to doxycycline over the next one month after discharge. Roflumilast: We'll also initiate Roflumilast at this time for 3 month trial. We'll have to monitor patient's weight closely as GI side effects and weight loss are noted. #2 hypoxia: Patient was ambulating today heart rate went to 120s she became very fatigued but she was on room air. Patient will have to continue on 2 L with ambulation and at rest at this time. Data Medications: Current Inpatient Medications Medications (Trade) Dose Ordered Sig/Jhon Route Start Time Stop Time Status Last Admin Dose Admin Heparin Sodium (Porcine) (Heparin Sq 5000 Unit/0.5ml) 5,000 unit Q8H SQ 05/12/16 22:00 06/11/16 21:59 Acetaminophen (Tylenol Tab) 650 mg Q4H PRN PO 05/12/16 16:30 06/11/16 16:29 Al Hydrox/Mg Hydrox/Simethicone (Maalox Max Susp) 15 ml Q4H PRN PO 05/12/16 16:30 06/11/16 16:29 Magnesium Hydroxide (Milk Of Magnesia Susp) 30 ml Q12H PRN PO 05/12/16 16:30 06/11/16 16:29 Ondansetron HCl (Zofran Inj) 4 mg Q6H PRN IV 05/12/16 16:30 06/11/16 16:29 Polyethylene (Miralax Powder Packet) 17 gm DAILY PRN PO 05/12/16 16:30 06/11/16 16:29 Glucose (Glucose 40% Gel) 15-30 GRAMS 15 GRAMS... UD PRN PO 05/12/16 16:30 06/11/16 16:29 Glucose (Glucose Chew Tab) 4-8 Tablets 4 Tabl... UD PRN PO 05/12/16 16:30 06/11/16 16:29 Dextrose (Dextrose 50% 50ML Syringe) 25-50ML OF 50% DW IV FOR... UD PRN IV 05/12/16 16:30 06/11/16 16:29 Glucagon (Glucagon Inj) 1 mg UD PRN SQ 05/12/16 16:30 06/11/16 16:29 Doxycycline Hyclate (Vibramycin Cap) 100 mg BID PO 05/12/16 21:00 05/19/16 20:59 05/15/16 07:38 100 MG Polyethylene (Miralax Powder Packet) 17 gm BID PO 05/12/16 21:00 06/11/16 20:59 05/13/16 20:46 17 GM Docusate Sodium (coLACE CAP) 100 mg BID PO 05/12/16 21:00 06/11/16 20:59 05/15/16 07:39 100 MG Bisacodyl (Dulcolax Supp) 10 mg DAILY PRN [place] 05/12/16 16:30 06/11/16 16:29 Albuterol (Ventolin Hfa Inhaler) 2 puffs Q4H PRN INH 05/12/16 16:30 06/11/16 16:29 Amlodipine Besylate (Norvasc Tab) 2.5 mg DAILY PO 05/13/16 09:00 06/12/16 08:59 05/15/16 07:38 2.5 MG Salmeterol Xinafoate/ Fluticasone (Advair Diskus 500/50 Inh) 1 puff BID INH 05/12/16 21:00 2/27/17 20:59 05/15/16 07:40 1 PUFF Fluticasone Propionate (Flonase Nasal [place]) 2 sprays DAILY NADIA 05/13/16 09:00 06/12/16 08:59 05/15/16 07:40 2 SPRAYS Lactulose (Chronulac Syrup) 10 gm BID PRN PO 05/12/16 16:30 06/11/16 16:29 Levothyroxine Sodium (Synthroid Tab) 75 mcg DAILYBB PO 05/13/16 06:00 06/12/16 05:59 05/15/16 06:09 75 MCG Loratadine (Claritin Tab) 10 mg DAILY PO 05/13/16 09:00 06/12/16 08:59 05/15/16 07:39 10 MG Lorazepam (Ativan Tab) 0.5 mg BID PO 05/12/16 21:00 06/11/16 20:59 05/15/16 07:40 0.5 MG Potassium Chloride (Klor-Con M10) 10 meq BIDM PO 05/12/16 19:00 06/11/16 18:59 05/15/16 07:39 10 MEQ Sodium Chloride (Sodium Chloride Tab) 1 gm TID PO 05/12/16 21:00 06/11/16 20:59 05/15/16 07:38 1 GM Tiotropium [place] (Spiriva Handihaler Inhaler) 1 puff QAM INH 05/13/16 09:00 06/12/16 08:59 05/15/16 07:39 1 PUFF Travoprost (Travatan Z) 1 drops HS OPB 05/12/16 21:00 06/11/16 20:59 05/14/16 20:45 1 DROPS Ipratropium [place] (Atrovent 0.02% 0.5MG/2.5ML Neb) 0.5 mg Q6R INH 05/12/16 21:00 06/11/16 20:59 05/15/16 07:49 0.5 MG Levalbuterol (Xopenex 1.25MG/ 0.5ML Neb) 1.25 mg Q6R INH 05/12/16 21:00 06/11/16 20:59 05/15/16 07:49 1.25 MG Ioversol (Optiray 320) 111 ml UD PRN IV 05/13/16 07:45 05/17/16 07:44 Pantoprazole Sodium (Protonix Tab) 40 mg QAM PO 05/14/16 09:00 06/13/16 08:59 05/15/16 07:39 40 MG Miscellaneous (Remove Lidoderm Patch) 1 ea DAILY@21 N/A 05/14/16 21:00 06/13/16 20:59 Lidocaine (Lidoderm Patch 5%) 1 patch DAILY@0900 TD 05/15/16 09:00 06/13/16 15:44 05/15/16 07:37 1 PATCH Prednisone (PredniSONE TAB) 40 mg DAILY PO 05/15/16 09:00 06/14/16 08:59 05/15/16 07:38 40 MG Multivitamins (Multivitamin Tab) 1 tab QAM PO 05/15/16 09:00 06/14/16 08:59 05/15/16 07:39 1 TAB Loperamide HCl (Imodium Cap) 2 mg UD PRN PO 05/14/16 20:45 06/13/16 20:44 I & O: 24-Hour Column 05/15/16 08:00 Intake Total 320 ml Output Total 700 ml Balance -380 ml Vital Signs: Date Time Temp Pulse Resp B/P Pulse Ox O2 Delivery O2 Flow Rate FiO2 05/15/16 08:15 Nasal Cannula 2.0 05/15/16 08:02 108 18 97 Nasal Cannula 1.0 05/15/16 07:42 36.4 100 18 158/81 97 Nasal Cannula 2.0 05/15/16 00:15 Nasal Cannula 2.0 05/15/16 00:03 36.6 89 18 125/67 91 Room Air 05/14/16 22:39 36.8 104 20 155/71 97 Nasal Cannula 2.0 05/14/16 21:57 37.1 97 18 94 2.0 05/14/16 20:00 94 Nasal Cannula 2.0 05/14/16 19:31 106 20 94 Nasal Cannula 2.0 05/14/16 19:11 37.1 97 18 131/77 94 Nasal Cannula 2.0 05/14/16 16:00 Nasal Cannula 3.0 BiPAP 05/14/16 14:28 116 20 98 Nasal Cannula 3.0 Laboratory Results: Last 24 Hours Test 05/14/16 16:55 05/14/16 20:42 05/15/16 05:33 Bedside Glucose 111 mg/dl 125 mg/dl White Blood Count 8.50 K/uL Red Blood Count 3.16 M/uL Hemoglobin 10.3 g/dL Hematocrit 30.5 % Mean Corpuscular Volume 96.5 fL Mean Corpuscular Hemoglobin 32.6 pg Mean Corpuscular Hemoglobin Concent 33.8 g/dl Platelet Count 162 K/uL Mean Platelet Volume 9.1 fL Neutrophils (%) (Auto) 81.6 % Lymphocytes (%) (Auto) 10.8 % Monocytes (%) (Auto) 6.8 % Eosinophils (%) (Auto) 0.0 % Basophils (%) (Auto) 0.0 % Neutrophils # (Auto) 6.93 K/uL Lymphocytes # (Auto) 0.92 K/uL Monocytes # (Auto) 0.58 K/uL Eosinophils # (Auto) 0.00 K/uL Basophils # (Auto) 0.00 K/uL RDW Standard Deviation 52.8 fL RDW Coefficient of Variation 14.8 % Immature Granulocyte % (Auto) 0.8 % Immature Granulocyte # (Auto) 0.07 K/uL Sodium Level 139 mmol/L Potassium Level 4.2 mmol/L Chloride Level 105 mmol/L Carbon Dioxide Level 25 mmol/L Anion Gap 9.0 mmol/L Blood Urea Nitrogen 31 mg/dl Creatinine 0.96 mg/dl Est Creatinine Clear Calc Drug Dose 30.7 ml/min Estimated GFR () 67.5 Estimated GFR (Non- 58.3 BUN/Creatinine Ratio 31.8 Random Glucose 86 mg/dl Calcium Level 8.1 mg/dl Magnesium Level 2.1 mg/dl
[2016-05-15 14:26] VITALS: PULSE 107; O2SAT 97
[2016-05-15 16:11] VITALS: BP 144/81; PULSE 101; TEMP 36.7; O2SAT 97
--- NOTE | 2016-05-15 18:24 | Progress Note ---
Medicine Progress Note Date & Time of Visit: May 15, 2016 at 18:04. Subjective Pt was seen and examined Sitting in bed with no acute distress Pt said that she continue to have sob with exertion She said that she is having lower back pain. She said that is chronic. she said that she had an image her back done with in mar. denies any fever, palpitation, chest pain Objective Last 8 Hrs Date Time Temp Pulse Resp B/P Pulse Ox O2 Delivery O2 Flow Rate FiO2 05/15/16 16:15 Nasal Cannula 2.0 05/15/16 16:11 36.7 101 18 144/81 97 Nasal Cannula 3.0 05/15/16 14:26 107 18 97 Nasal Cannula 2.0 Physical Exam: General- No acute distress Head- atraumatic Eyes- PERRL, EOMI ENT- oropharynx clear Neck- supple, no JVD Lungs-+wheezing Heart- tachycardia, no murmur Abdomen- normal bowel sounds, soft Extremities-no calf tenderness Neuro- alert, oriented x 3; PERRL, EOMI; Skin- warm & dry Laboratory Results: Last 24 Hours Test 05/14/16 20:42 05/15/16 05:33 Bedside Glucose 125 mg/dl White Blood Count 8.50 K/uL Red Blood Count 3.16 M/uL Hemoglobin 10.3 g/dL Hematocrit 30.5 % Mean Corpuscular Volume 96.5 fL Mean Corpuscular Hemoglobin 32.6 pg Mean Corpuscular Hemoglobin Concent 33.8 g/dl Platelet Count 162 K/uL Mean Platelet Volume 9.1 fL Neutrophils (%) (Auto) 81.6 % Lymphocytes (%) (Auto) 10.8 % Monocytes (%) (Auto) 6.8 % Eosinophils (%) (Auto) 0.0 % Basophils (%) (Auto) 0.0 % Neutrophils # (Auto) 6.93 K/uL Lymphocytes # (Auto) 0.92 K/uL Monocytes # (Auto) 0.58 K/uL Eosinophils # (Auto) 0.00 K/uL Basophils # (Auto) 0.00 K/uL RDW Standard Deviation 52.8 fL RDW Coefficient of Variation 14.8 % Immature Granulocyte % (Auto) 0.8 % Immature Granulocyte # (Auto) 0.07 K/uL Sodium Level 139 mmol/L Potassium Level 4.2 mmol/L Chloride Level 105 mmol/L Carbon Dioxide Level 25 mmol/L Anion Gap 9.0 mmol/L Blood Urea Nitrogen 31 mg/dl Creatinine 0.96 mg/dl Est Creatinine Clear Calc Drug Dose 30.7 ml/min Estimated GFR () 67.5 Estimated GFR (Non- 58.3 BUN/Creatinine Ratio 31.8 Random Glucose 86 mg/dl Calcium Level 8.1 mg/dl Magnesium Level 2.1 mg/dl Date/Time Source Procedure Growth Status 05/15/16 00:00 Sputum Expectorated Sputum Gram Stain Pending Received 05/15/16 00:00 Sputum Expectorated Sputum Sputum Culture Pending Received Assessment & Plan ACUTE RESPIRATORY FAILURE DUE TO ACUTE EXACERBATION OF COPD -CXR without consolidation, Flu PCR - negative -CTA chest was negative for PE -Continue PO prednisone (05/14) - On doxycycline -Continue Spiriva, Advair, Ventolin -Required BIPAP on admisson - now saturating well on 2L NC, will need two step prior to discharge -Blood cultures, sputum cultures negative to date - Pulmonary on board will give a trial of roflumilast - Counseling on smoking cessation ELEVATED WBC Related to steroid Afebrile Blood cx and sputum cx negative resolved SINUS TACHYCARDIA - -likely secondary to hypoxia, severe COPD exacerbation, steroid use -CTA chest negative for PE Stable LOW BACK PAIN -UA negative -xrays earlier this month reveal degenerative changes -likely MSK vs arthritic changes -continue Lidocane patch (05/14) -cannot tolerate APAP -->if lidocaine doesn't work would try Tramadol Stable GERD: Continue PPI DIARRHEA -c-diff negative -Imodium PRN -Improved HYPOTHYROIDISM -continue Synthroid HTN -stable -continue Amlodipine ANXIETY - continue Ativan prn h/o SIADH -continue Sodium Tablets as outpatient TOBACCO ABUSE -Cessation counseling given -Nicotine patch ordered AAA -2.6 cm on 04/2015 DVT PROPHYLAXIS: Sq heparin CODE STATUS: FULL CODE Consultants: Pulm Current Inpatient Medications: Current Inpatient Medications Medications (Trade) Dose Ordered Sig/Jhon Route Start Time Stop Time Status Last Admin Dose Admin Heparin Sodium (Porcine) (Heparin Sq 5000 Unit/0.5ml) 5,000 unit Q8H SQ 05/12/16 22:00 06/11/16 21:59 Acetaminophen (Tylenol Tab) 650 mg Q4H PRN PO 05/12/16 16:30 06/11/16 16:29 05/15/16 17:58 650 MG Al Hydrox/Mg Hydrox/Simethicone (Maalox Max Susp) 15 ml Q4H PRN PO 05/12/16 16:30 06/11/16 16:29 Magnesium Hydroxide (Milk Of Magnesia Susp) 30 ml Q12H PRN PO 05/12/16 16:30 06/11/16 16:29 Ondansetron HCl (Zofran Inj) 4 mg Q6H PRN IV 05/12/16 16:30 06/11/16 16:29 Polyethylene (Miralax Powder Packet) 17 gm DAILY PRN PO 05/12/16 16:30 06/11/16 16:29 Glucose (Glucose 40% Gel) 15-30 GRAMS 15 GRAMS... UD PRN PO 05/12/16 16:30 06/11/16 16:29 Glucose (Glucose Chew Tab) 4-8 Tablets 4 Tabl... UD PRN PO 05/12/16 16:30 06/11/16 16:29 Dextrose (Dextrose 50% 50ML Syringe) 25-50ML OF 50% DW IV FOR... UD PRN IV 05/12/16 16:30 06/11/16 16:29 Glucagon (Glucagon Inj) 1 mg UD PRN SQ 05/12/16 16:30 06/11/16 16:29 Doxycycline Hyclate (Vibramycin Cap) 100 mg BID PO 05/12/16 21:00 05/19/16 20:59 05/15/16 07:38 100 MG Polyethylene (Miralax Powder Packet) 17 gm BID PO 05/12/16 21:00 06/11/16 20:59 05/13/16 20:46 17 GM Docusate Sodium (coLACE CAP) 100 mg BID PO 05/12/16 21:00 06/11/16 20:59 05/15/16 07:39 100 MG Bisacodyl (Dulcolax Supp) 10 mg DAILY PRN [place] 05/12/16 16:30 06/11/16 16:29 Albuterol (Ventolin Hfa Inhaler) 2 puffs Q4H PRN INH 05/12/16 16:30 06/11/16 16:29 Amlodipine Besylate (Norvasc Tab) 2.5 mg DAILY PO 05/13/16 09:00 06/12/16 08:59 05/15/16 07:38 2.5 MG Salmeterol Xinafoate/ Fluticasone (Advair Diskus 500/50 Inh) 1 puff BID INH 05/12/16 21:00 06/11/16 20:59 05/15/16 07:40 1 PUFF Fluticasone Propionate (Flonase Nasal [place]) 2 sprays DAILY NADIA 05/13/16 09:00 06/12/16 08:59 05/15/16 07:40 2 SPRAYS Lactulose (Chronulac Syrup) 10 gm BID PRN PO 05/12/16 16:30 06/11/16 16:29 Levothyroxine Sodium (Synthroid Tab) 75 mcg DAILYBB PO 05/13/16 06:00 06/12/16 05:59 05/15/16 06:09 75 MCG Loratadine (Claritin Tab) 10 mg DAILY PO 05/13/16 09:00 06/12/16 08:59 05/15/16 07:39 10 MG Lorazepam (Ativan Tab) 0.5 mg BID PO 05/12/16 21:00 06/11/16 20:59 05/15/16 07:40 0.5 MG Potassium Chloride (Klor-Con M10) 10 meq BIDM PO 05/12/16 19:00 06/11/16 18:59 05/15/16 17:05 10 MEQ Sodium Chloride (Sodium Chloride Tab) 1 gm TID PO 05/12/16 21:00 06/11/16 20:59 05/15/16 13:43 1 GM Tiotropium [place] (Spiriva Handihaler Inhaler) 1 puff QAM INH 05/13/16 09:00 06/12/16 08:59 05/15/16 07:39 1 PUFF Travoprost (Travatan Z) 1 drops HS OPB 05/12/16 21:00 06/11/16 20:59 05/14/16 20:45 1 DROPS Ipratropium [place] (Atrovent 0.02% 0.5MG/2.5ML Neb) 0.5 mg Q6R INH 05/12/16 21:00 06/11/16 20:59 05/15/16 14:25 0.5 MG Levalbuterol (Xopenex 1.25MG/ 0.5ML Neb) 1.25 mg Q6R INH 05/12/16 21:00 06/11/16 20:59 05/15/16 14:25 1.25 MG Ioversol (Optiray 320) 111 ml UD PRN IV 05/13/16 07:45 05/17/16 07:44 Pantoprazole Sodium (Protonix Tab) 40 mg QAM PO 05/14/16 09:00 06/13/16 08:59 05/15/16 07:39 40 MG Miscellaneous (Remove Lidoderm Patch) 1 ea DAILY@21 N/A 05/14/16 21:00 06/13/16 20:59 05/15/16 15:13 1 EA Lidocaine (Lidoderm Patch 5%) 1 patch DAILY@0900 TD 05/15/16 09:00 06/13/16 15:44 05/15/16 07:37 1 PATCH Prednisone (PredniSONE TAB) 40 mg DAILY PO 05/15/16 09:00 06/14/16 08:59 05/15/16 07:38 40 MG Multivitamins (Multivitamin Tab) 1 tab QAM PO 05/15/16 09:00 06/14/16 08:59 05/15/16 07:39 1 TAB Loperamide HCl (Imodium Cap) 2 mg UD PRN PO 05/14/16 20:45 06/13/16 20:44 Roflumilast (Daliresp Tab) 500 mcg DAILY PO 05/16/16 09:00 06/15/16 08:59
[2016-05-15] MEDS: TRAVOPROST Z 0.004% OPH SOLN 2.5 ML BTL OPB SCH (20:35)
[2016-05-15 22:18] VITALS: PULSE 107; O2SAT 97
[2016-05-16] VITALS (7 sets, daily range): BP systolic 128; BP diastolic 72–86; PULSE 94–137; TEMP 36.5–37.1; O2SAT 96–98
[2016-05-16] MEDS: IPRATROPIUM BROMIDE NEB SOLN 0.02% 2.5 ML VIAL INH SCH ×4 (02:36→19:39)
[2016-05-16] MEDS: LEVALBUTEROL 1.25MG/0.5ML NEB INH SCH ×4 (02:36→19:39)
[2016-05-16] MEDS: HEPARIN SOD 5000 UNIT/0.5 ML CARP SQ SCH ×3 (05:52→19:26)
[2016-05-16] MEDS: LEVOTHYROXINE 75 MCG TAB PO SCH (05:52)
[2016-05-16] MEDS: FLUTICASONE/SALMETEROL (ADVAIR) 500/50 INH 14 PUFF INH SCH ×2 (07:41→19:25)
[2016-05-16] MEDS: TIOTROPIUM BROMIDE 5 PUFF/90 MCG INH INH SCH (07:42)
[2016-05-16] MEDS: FLUTICASONE PROPIONATE NA SPR 16 GM BTL NAE SCH (07:42)
[2016-05-16] MEDS: POTASSIUM CHLORIDE 10 MEQ TABCR PO SCH ×2 (07:43→16:47)
[2016-05-16] MEDS: DOXYCYCLINE HYCLATE 100 MG CAP PO SCH ×2 (07:43→19:26)
[2016-05-16] MEDS: AMLODIPINE BESYLATE 5 MG TAB PO SCH (07:43)
[2016-05-16] MEDS: LIDODERM (LIDOCAINE) PATCH 5% TD SCH (07:43)
[2016-05-16] MEDS: POLYETHYLENE (MIRALAX) 17 GM PACK PO SCH ×2 (07:43→19:26)
[2016-05-16] MEDS: PANTOprazole SOD 40 MG TAB PO SCH (07:44)
[2016-05-16] MEDS: DOCUSATE SODIUM 100 MG CAP PO SCH ×2 (07:44→19:26)
[2016-05-16] MEDS: LORAZEPAM 0.5 MG TAB PO SCH ×2 (07:44→19:26)
[2016-05-16] MEDS: ROFLUMILAST 500 MCG TAB PO SCH (07:44)
[2016-05-16] MEDS: MULTIVITAMIN TAB PO SCH (07:44)
[2016-05-16] MEDS: SODIUM CHLORIDE 1 GM TAB PO SCH ×3 (07:44→19:26)
[2016-05-16] MEDS: LORATADINE 10 MG TAB PO SCH (07:44)
[2016-05-16 08:54] LABS: BUN/CREATININE RATIO 31.6 (10-20); CALCIUM 8.4 mg/dl (8.5-10.1); CREATININE 0.74 mg/dl (0.60-1.20); POTASSIUM 3.6 mmol/L (3.5-5.1)
--- NOTE | 2016-05-16 10:27 | PROGRESS NOTE ---
DATE: 05/16/2016 DATE: 05/16/2016. PROBLEM LIST: Includes: 1. Chronic obstructive pulmonary disease with exacerbation. 2. Hypoxia. SUBJECTIVE: The patient reports that her breathing is feeling better today compared to yesterday. She thinks that she is continuing to improve. She does not feel that she is at her normal breathing level yet but she is getting better. She states that she can walk to the bathroom without becoming severely short of breath. She was getting very short of breath prior to this. She states that she is still feeling a little bit run and tired. She is not getting as short of breath with carrying on a conversation as well. She states that she has been having a little bit of cough today. Her cough is a little bit loose, but she has not been able to cough anything up. She states that she does have cough at home as well. She was started on Daliresp yesterday, has not had any side effects to this to this point. She denies any other concerns or problems at this time. No chest pain. She does have some left rib low back pain. This is an ongoing issue. This is not anything acute. She denies any stomach issues. No nausea or vomiting. She states that bowels are moving well. She is voiding well, not having any swelling in her extremities. OBJECTIVE: GENERAL: The patient is a 76-year-old thin female in no acute distress carrying on a conversation without any difficulty with me today. She is alert and oriented x3. Mood is good. Affect is good. VITAL SIGNS: Temp 36.5, pulse 94, respirations 20, blood pressure 128/86, pulse ox 96% on 2 liters. HEAD, EYES, EARS, NOSE, AND THROAT: Normocephalic, atraumatic. Pupils equal, round and react to light and accommodation. Extraocular movements are intact. [place] moist gingival and buccal mucosa. NECK: Thin, no mass. No adenopathy. No bruit, no JVD, no thyromegaly. CHEST: The patient has diminished breath sounds bilaterally. She does have a few faint wheezes in the upper airways. No rale or rhonchi noted. CARDIOVASCULAR: Regular rate and rhythm. No murmurs, gallops or rubs. ABDOMEN: Bowel sounds are present. Abdomen is soft, nontender. No guarding, rigidity or organomegaly. EXTREMITIES: No erythema or edema, no tenderness to palpation. No cyanosis or clubbing. NEUROLOGIC: Cranial nerves II through XII are intact. No focal deficit noted. LABORATORY DATA: Shows BUN 23, creatinine 0.7. Sputum culture is not back. No new radiologic data at this time. IMPRESSION: 1. A 76-year-old female with chronic obstructive pulmonary disease exacerbation. At this time, patient is improving. As per Dr. Nelson's recommendations from yesterday continue prednisone 40 mg twice daily, I will do a slow taper with her. I agree with alternating azithromycin and doxycycline on a monthly basis as an outpatient. Also agree with the Daliresp. The patient has had one dose at this point with no difficulty. 2. Hypoxia. The patient is to continue on 2 liters of oxygen continuously. At this point, she is going to have physical therapy today and if she continues to show improvement, consider stable for discharge from a pulmonary standpoint in the next 24-48 hours. Will continue to follow through hospitalization.
--- NOTE | 2016-05-16 16:09 | Progress Note ---
Medicine Progress Note Date & Time of Visit: May 16, 2016 at 15:58. Subjective Pt was seen and examined Sitting in bed very comfortable with no distress Pt said that her breathing improved a little bit she said that she is coughing less denies any fever, chest pain, palpitation, dizziness Objective Last 8 Hrs Date Time Temp Pulse Resp B/P Pulse Ox O2 Delivery O2 Flow Rate FiO2 05/16/16 14:08 105 18 98 Nasal Cannula 3.0 05/16/16 13:34 137 97 05/16/16 08:30 Nasal Cannula 2.0 05/16/16 07:59 96 Nasal Cannula 2.0 Physical Exam: General- No acute distress Head- atraumatic Eyes- PERRL, EOMI ENT- oropharynx clear Neck- supple, no JVD Lungs-+wheezing Heart- tachycardia, no murmur Abdomen- normal bowel sounds, soft Extremities-no calf tenderness Neuro- alert, oriented x 3; PERRL, EOMI; Skin- warm & dry Laboratory Results: Last 24 Hours Test 05/16/16 07:58 Sodium Level 139 mmol/L Potassium Level 3.6 mmol/L Chloride Level 102 mmol/L Carbon Dioxide Level 26 mmol/L Anion Gap 11.0 mmol/L Blood Urea Nitrogen 23 mg/dl Creatinine 0.74 mg/dl Est Creatinine Clear Calc Drug Dose 39.8 ml/min Estimated GFR () 92.5 Estimated GFR (Non- 79.8 BUN/Creatinine Ratio 31.6 Random Glucose 70 mg/dl Calcium Level 8.4 mg/dl Magnesium Level 2.0 mg/dl Assessment & Plan ACUTE RESPIRATORY FAILURE DUE TO ACUTE EXACERBATION OF COPD -CXR without consolidation, Flu PCR - negative -CTA chest was negative for PE -Continue PO prednisone (05/14) - Pulmonary recommends alternates doxycycline with Zithromax -Continue Spiriva, Advair, Ventolin -Required BIPAP on admisson - Now saturating well on 2L NC, will need two step prior to discharge -Blood cultures, sputum cultures negative to date - Pulmonary on board tolerating roflumilast - Counseling on smoking cessation ELEVATED WBC Related to steroid Afebrile Blood cx and sputum cx negative resolved SINUS TACHYCARDIA - -likely secondary to hypoxia, severe COPD exacerbation, steroid use -CTA chest negative for PE Stable LOW BACK PAIN -UA negative -xrays earlier this month reveal degenerative changes -likely MSK vs arthritic changes -continue Lidocane patch (05/14) -cannot tolerate APAP -->if lidocaine doesn't work would try Tramadol Stable GERD: Continue PPI DIARRHEA -c-diff negative -Imodium PRN -Improved HYPOTHYROIDISM -continue Synthroid HTN -stable -continue Amlodipine ANXIETY - continue Ativan prn h/o SIADH -continue Sodium Tablets as outpatient TOBACCO ABUSE -Cessation counseling given -Nicotine patch ordered AAA -2.6 cm on 04/2015 DVT PROPHYLAXIS: Sq heparin CODE STATUS: FULL CODE Consultants: Pulm Current Inpatient Medications: Current Inpatient Medications Medications (Trade) Dose Ordered Sig/Jhon Route Start Time Stop Time Status Last Admin Dose Admin Heparin Sodium (Porcine) (Heparin Sq 5000 Unit/0.5ml) 5,000 unit Q8H SQ 05/12/16 22:00 06/11/16 21:59 Acetaminophen (Tylenol Tab) 650 mg Q4H PRN PO 05/12/16 16:30 06/11/16 16:29 05/15/16 17:58 650 MG Al Hydrox/Mg Hydrox/Simethicone (Maalox Max Susp) 15 ml Q4H PRN PO 05/12/16 16:30 06/11/16 16:29 Magnesium Hydroxide (Milk Of Magnesia Susp) 30 ml Q12H PRN PO 05/12/16 16:30 06/11/16 16:29 Ondansetron HCl (Zofran Inj) 4 mg Q6H PRN IV 05/12/16 16:30 06/11/16 16:29 Polyethylene (Miralax Powder Packet) 17 gm DAILY PRN PO 05/12/16 16:30 06/11/16 16:29 Glucose (Glucose 40% Gel) 15-30 GRAMS 15 GRAMS... UD PRN PO 05/12/16 16:30 06/11/16 16:29 Glucose (Glucose Chew Tab) 4-8 Tablets 4 Tabl... UD PRN PO 05/12/16 16:30 06/11/16 16:29 Dextrose (Dextrose 50% 50ML Syringe) 25-50ML OF 50% DW IV FOR... UD PRN IV 05/12/16 16:30 06/11/16 16:29 Glucagon (Glucagon Inj) 1 mg UD PRN SQ 05/12/16 16:30 06/11/16 16:29 Doxycycline Hyclate (Vibramycin Cap) 100 mg BID PO 05/12/16 21:00 05/19/16 20:59 05/16/16 07:43 100 MG Polyethylene (Miralax Powder Packet) 17 gm BID PO 05/12/16 21:00 06/11/16 20:59 05/16/16 07:43 17 GM Docusate Sodium (coLACE CAP) 100 mg BID PO 05/12/16 21:00 06/11/16 20:59 05/16/16 07:44 100 MG Bisacodyl (Dulcolax Supp) 10 mg DAILY PRN [place] 05/12/16 16:30 06/11/16 16:29 Albuterol (Ventolin Hfa Inhaler) 2 puffs Q4H PRN INH 05/12/16 16:30 06/11/16 16:29 Amlodipine Besylate (Norvasc Tab) 2.5 mg DAILY PO 05/13/16 09:00 06/12/16 08:59 05/16/16 07:43 2.5 MG Salmeterol Xinafoate/ Fluticasone (Advair Diskus 500/50 Inh) 1 puff BID INH 05/12/16 21:00 06/11/16 20:59 05/16/16 07:41 1 PUFF Fluticasone Propionate (Flonase Nasal [place]) 2 sprays DAILY NADIA 05/13/16 09:00 06/12/16 08:59 05/16/16 07:42 2 SPRAYS Lactulose (Chronulac Syrup) 10 gm BID PRN PO 05/12/16 16:30 06/11/16 16:29 Levothyroxine Sodium (Synthroid Tab) 75 mcg DAILYBB PO 05/13/16 06:00 06/12/16 05:59 05/16/16 05:52 75 MCG Loratadine (Claritin Tab) 10 mg DAILY PO 05/13/16 09:00 06/12/16 08:59 05/16/16 07:44 10 MG Lorazepam (Ativan Tab) 0.5 mg BID PO 05/12/16 21:00 06/11/16 20:59 05/16/16 07:44 0.5 MG Potassium Chloride (Klor-Con M10) 10 meq BIDM PO 05/12/16 19:00 06/11/16 18:59 05/16/16 07:43 10 MEQ Sodium Chloride (Sodium Chloride Tab) 1 gm TID PO 05/12/16 21:00 06/11/16 20:59 05/16/16 13:58 1 GM Tiotropium [place] (Spiriva Handihaler Inhaler) 1 puff QAM INH 05/13/16 09:00 06/12/16 08:59 05/16/16 07:42 1 PUFF Travoprost (Travatan Z) 1 drops HS OPB 05/12/16 21:00 06/11/16 20:59 05/15/16 20:35 1 DROPS Ipratropium [place] (Atrovent 0.02% 0.5MG/2.5ML Neb) 0.5 mg Q6R INH 05/12/16 21:00 06/11/16 20:59 05/16/16 14:08 0.5 MG Levalbuterol (Xopenex 1.25MG/ 0.5ML Neb) 1.25 mg Q6R INH 05/12/16 21:00 06/11/16 20:59 05/16/16 14:08 1.25 MG Ioversol (Optiray 320) 111 ml UD PRN IV 05/13/16 07:45 05/17/16 07:44 Pantoprazole Sodium (Protonix Tab) 40 mg QAM PO 05/14/16 09:00 06/13/16 08:59 05/16/16 07:44 40 MG Miscellaneous (Remove Lidoderm Patch) 1 ea DAILY@21 N/A 05/14/16 21:00 06/13/16 20:59 05/15/16 15:13 1 EA Lidocaine (Lidoderm Patch 5%) 1 patch DAILY@0900 TD 05/15/16 09:00 06/13/16 15:44 05/16/16 07:43 1 PATCH Prednisone (PredniSONE TAB) 40 mg DAILY PO 05/15/16 09:00 06/14/16 08:59 05/16/16 07:44 40 MG Multivitamins (Multivitamin Tab) 1 tab QAM PO 05/15/16 09:00 06/14/16 08:59 05/16/16 07:44 1 TAB Loperamide HCl (Imodium Cap) 2 mg UD PRN PO 05/14/16 20:45 06/13/16 20:44 Roflumilast (Daliresp Tab) 500 mcg DAILY PO 05/16/16 09:00 06/15/16 08:59 05/16/16 07:44 500 MCG
[2016-05-16] MEDS: TRAVOPROST Z 0.004% OPH SOLN 2.5 ML BTL OPB SCH (19:26)
[2016-05-17] VITALS (9 sets, daily range): BP systolic 137–151; BP diastolic 72–85; PULSE 94–114; TEMP 36.6–36.8; O2SAT 94–99
[2016-05-17] MEDS: IPRATROPIUM BROMIDE NEB SOLN 0.02% 2.5 ML VIAL INH SCH ×4 (01:34→19:25)
[2016-05-17] MEDS: LEVALBUTEROL 1.25MG/0.5ML NEB INH SCH ×4 (01:34→19:25)
[2016-05-17] MEDS: HEPARIN SOD 5000 UNIT/0.5 ML CARP SQ SCH ×3 (06:00→19:33)
[2016-05-17] MEDS: LEVOTHYROXINE 75 MCG TAB PO SCH (06:23)
[2016-05-17] MEDS: FLUTICASONE/SALMETEROL (ADVAIR) 500/50 INH 14 PUFF INH SCH ×2 (07:33→19:32)
[2016-05-17] MEDS: SODIUM CHLORIDE 1 GM TAB PO SCH ×3 (07:34→19:32)
[2016-05-17] MEDS: PANTOprazole SOD 40 MG TAB PO SCH (07:34)
[2016-05-17] MEDS: TIOTROPIUM BROMIDE 5 PUFF/90 MCG INH INH SCH (07:34)
[2016-05-17] MEDS: LORATADINE 10 MG TAB PO SCH (07:35)
[2016-05-17] MEDS: AMLODIPINE BESYLATE 5 MG TAB PO SCH (07:35)
[2016-05-17] MEDS: DOCUSATE SODIUM 100 MG CAP PO SCH ×2 (07:36→19:32)
[2016-05-17] MEDS: FLUTICASONE PROPIONATE NA SPR 16 GM BTL NAE SCH (07:36)
[2016-05-17] MEDS: POLYETHYLENE (MIRALAX) 17 GM PACK PO SCH ×2 (07:36→19:32)
[2016-05-17] MEDS: ROFLUMILAST 500 MCG TAB PO SCH (07:37)
[2016-05-17] MEDS: POTASSIUM CHLORIDE 10 MEQ TABCR PO SCH ×2 (07:37→16:02)
[2016-05-17] MEDS: MULTIVITAMIN TAB PO SCH (07:38)
[2016-05-17] MEDS: DOXYCYCLINE HYCLATE 100 MG CAP PO SCH ×2 (07:38→19:32)
[2016-05-17] MEDS: LIDODERM (LIDOCAINE) PATCH 5% TD SCH (07:38)
[2016-05-17] MEDS: LORAZEPAM 0.5 MG TAB PO SCH ×2 (07:42→19:33)
--- NOTE | 2016-05-17 09:22 | Pulmonology Progress Note ---
Pulmonary Progress Note Date of Service May 17, 2016. Attending Zac Nelson Subjective Patient still notes dyspnea on exertion minimal sputum production Objective Patient able to speak in full sentences no signs of increased work of breathing such as tachypnea and or accessory muscle use VS: reviewed(SaO2) heart rate stable on 1-2 L nasal cannula) RESP: Still diminished but increasing breath sounds bilaterally CARDS: RRR with distant heart sounds #1 doxycycline 100 mg twice a day #2 Roflumilast #3 prednisone 40 mg by mouth daily #4 Flonase 2 sprays daily #5 Spiriva one puff daily #6 Advair disc 500/50 #7 Atrovent/Xopenex MDIs every 6 hours Microbiology reviewed 1)Expectorated sputum 08/18/14: MSSA Current admission Microbiology: Reviewed no signs of pathologic growth Assessment & Plan 76 y/o female with very sever COPD FEV1: 35% and acute exacerbation: 1) COPD: We'll discuss and glottic rotation after patient has been discharged and follow up in pulmonary clinic. #1 doxycycline 100 mg twice a day #2 Roflumilast #3 prednisone 40 mg by mouth daily #4 Flonase 2 sprays daily #5 Spiriva one puff daily #6 Advair disc 500/50 #7 Atrovent/Xopenex MDIs every 6 hours 2) Hypoxia: Patient will require two-step evaluation. Most likely use oxygen with exertion and sleep. 3) Discharge: We'll continue to follow the patient at this time she is close to her baseline and after home oxygen evaluation most likely could be discharged in next 24-48 hours. Data Medications: Current Inpatient Medications Medications (Trade) Dose Ordered Sig/Jhon Route Start Time Stop Time Status Last Admin Dose Admin Heparin Sodium (Porcine) (Heparin Sq 5000 Unit/0.5ml) 5,000 unit Q8H SQ 05/12/16 22:00 06/11/16 21:59 Acetaminophen (Tylenol Tab) 650 mg Q4H PRN PO 05/12/16 16:30 06/11/16 16:29 05/15/16 17:58 650 MG Al Hydrox/Mg Hydrox/Simethicone (Maalox Max Susp) 15 ml Q4H PRN PO 05/12/16 16:30 06/11/16 16:29 Magnesium Hydroxide (Milk Of Magnesia Susp) 30 ml Q12H PRN PO 05/12/16 16:30 06/11/16 16:29 Ondansetron HCl (Zofran Inj) 4 mg Q6H PRN IV 05/12/16 16:30 06/11/16 16:29 Polyethylene (Miralax Powder Packet) 17 gm DAILY PRN PO 05/12/16 16:30 06/11/16 16:29 Glucose (Glucose 40% Gel) 15-30 GRAMS 15 GRAMS... UD PRN PO 05/12/16 16:30 06/11/16 16:29 Glucose (Glucose Chew Tab) 4-8 Tablets 4 Tabl... UD PRN PO 05/12/16 16:30 06/11/16 16:29 Dextrose (Dextrose 50% 50ML Syringe) 25-50ML OF 50% DW IV FOR... UD PRN IV 05/12/16 16:30 06/11/16 16:29 Glucagon (Glucagon Inj) 1 mg UD PRN SQ 05/12/16 16:30 06/11/16 16:29 Doxycycline Hyclate (Vibramycin Cap) 100 mg BID PO 05/12/16 21:00 05/19/16 20:59 05/17/16 07:38 100 MG Polyethylene (Miralax Powder Packet) 17 gm BID PO 05/12/16 21:00 06/11/16 20:59 05/16/16 07:43 17 GM Docusate Sodium (coLACE CAP) 100 mg BID PO 05/12/16 21:00 06/11/16 20:59 05/16/16 07:44 100 MG Bisacodyl (Dulcolax Supp) 10 mg DAILY PRN [place] 05/12/16 16:30 06/11/16 16:29 Albuterol (Ventolin Hfa Inhaler) 2 puffs Q4H PRN INH 05/12/16 16:30 06/11/16 16:29 Amlodipine Besylate (Norvasc Tab) 2.5 mg DAILY PO 05/13/16 09:00 06/12/16 08:59 05/17/16 07:35 2.5 MG Salmeterol Xinafoate/ Fluticasone (Advair Diskus 500/50 Inh) 1 puff BID INH 05/12/16 21:00 06/11/16 20:59 05/17/16 07:33 1 PUFF Fluticasone Propionate (Flonase Nasal [place]) 2 sprays DAILY NADIA 05/13/16 09:00 06/12/16 08:59 05/17/16 07:36 2 SPRAYS Lactulose (Chronulac Syrup) 10 gm BID PRN PO 05/12/16 16:30 06/11/16 16:29 Levothyroxine Sodium (Synthroid Tab) 75 mcg DAILYBB PO 05/13/16 06:00 06/12/16 05:59 05/17/16 06:23 75 MCG Loratadine (Claritin Tab) 10 mg DAILY PO 05/13/16 09:00 06/12/16 08:59 05/17/16 07:35 10 MG Lorazepam (Ativan Tab) 0.5 mg BID PO 05/12/16 21:00 06/11/16 20:59 05/17/16 07:42 0.5 MG Potassium Chloride (Klor-Con M10) 10 meq BIDM PO 05/12/16 19:00 06/11/16 18:59 05/17/16 07:37 10 MEQ Sodium Chloride (Sodium Chloride Tab) 1 gm TID PO 05/12/16 21:00 06/11/16 20:59 05/17/16 07:34 1 GM Tiotropium [place] (Spiriva Handihaler Inhaler) 1 puff QAM INH 05/13/16 09:00 06/12/16 08:59 05/17/16 07:34 1 PUFF Travoprost (Travatan Z) 1 drops HS OPB 05/12/16 21:00 06/11/16 20:59 05/16/16 19:26 1 DROPS Ipratropium [place] (Atrovent 0.02% 0.5MG/2.5ML Neb) 0.5 mg Q6R INH 05/12/16 21:00 06/11/16 20:59 05/17/16 07:52 0.5 MG Levalbuterol (Xopenex 1.25MG/ 0.5ML Neb) 1.25 mg Q6R INH 05/12/16 21:00 06/11/16 20:59 05/17/16 07:52 1.25 MG Pantoprazole Sodium (Protonix Tab) 40 mg QAM PO 05/14/16 09:00 06/13/16 08:59 05/17/16 07:34 40 MG Miscellaneous (Remove Lidoderm Patch) 1 ea DAILY@21 N/A 05/14/16 21:00 06/13/16 20:59 05/16/16 21:00 1 EA Lidocaine (Lidoderm Patch 5%) 1 patch DAILY@0900 TD 05/15/16 09:00 06/13/16 15:44 05/17/16 07:38 1 PATCH Prednisone (PredniSONE TAB) 40 mg DAILY PO 05/15/16 09:00 06/14/16 08:59 05/17/16 07:35 40 MG Multivitamins (Multivitamin Tab) 1 tab QAM PO 05/15/16 09:00 06/14/16 08:59 05/17/16 07:38 1 TAB Loperamide HCl (Imodium Cap) 2 mg UD PRN PO 05/14/16 20:45 06/13/16 20:44 Roflumilast (Daliresp Tab) 500 mcg DAILY PO 05/16/16 09:00 06/15/16 08:59 05/17/16 07:37 500 MCG Vital Signs: Date Time Temp Pulse Resp B/P Pulse Ox O2 Delivery O2 Flow Rate FiO2 05/17/16 08:25 36.8 109 18 151/76 94 Nasal Cannula 2.0 05/17/16 08:00 99 Nasal Cannula 2.0 05/17/16 07:52 98 16 99 Nasal Cannula 2.0 05/17/16 01:35 94 18 97 Nasal Cannula 2.0 05/17/16 00:01 Nasal Cannula 2.0 05/17/16 00:00 36.6 95 18 137/72 95 2.0 05/16/16 20:00 Nasal Cannula 2.0 05/16/16 19:39 103 18 97 Nasal Cannula 2.0 05/16/16 16:30 Nasal Cannula 2.0 05/16/16 14:08 105 18 98 Nasal Cannula 3.0 05/16/16 13:34 137 97
[2016-05-17 15:48] LABS: ALLEN TEST POS (POS); ARTERIAL BLD GAS O2 SATURATION 95.3 % (90-95); ARTERIAL BLOOD GAS BASE EXCESS 1.3 mEq/L (-9-1.8); ARTERIAL BLOOD GAS HCO3 24 mmol/L (19-24); ARTERIAL BLOOD GAS PO2 71 mm/Hg (80-95); ARTERIAL BLOOD GAS pH 7.48 (7.35-7.45); O2 ADMINISTRATION ROOM AIR
--- NOTE | 2016-05-17 15:49 | Progress Note ---
Medicine Progress Note Date & Time of Visit: May 17, 2016 at 15:35. Subjective Pt was seen and examined Sitting in bed comfortable with no distress with daughter in the room Pt said that her breathing feels much better she just had a 2step done that showed her oxygen sat at 96-97 %at rest and dropped to 94% with walking with increase HR in the 140 Pt denies any chest pain, palpitation and dizziness Objective Last 8 Hrs Date Time Temp Pulse Resp B/P Pulse Ox O2 Delivery O2 Flow Rate FiO2 05/17/16 15:15 36.7 114 20 143/85 97 Nasal Cannula 2.0 05/17/16 14:37 106 16 98 Nasal Cannula 2.0 05/17/16 08:25 36.8 109 18 151/76 94 Nasal Cannula 2.0 05/17/16 08:00 99 Nasal Cannula 2.0 05/17/16 07:52 98 16 99 Nasal Cannula 2.0 Physical Exam: General- No acute distress Head- atraumatic Eyes- PERRL, EOMI ENT- oropharynx clear Neck- supple, no JVD Lungs-+wheezing Heart- tachycardia, no murmur Abdomen- normal bowel sounds, soft Extremities-no calf tenderness Neuro- alert, oriented x 3; PERRL, EOMI; Skin- warm & dry Laboratory Results: Last 24 Hours Test 05/17/16 14:31 Assessment & Plan ACUTE RESPIRATORY FAILURE DUE TO ACUTE EXACERBATION OF COPD -CXR without consolidation, Flu PCR - negative -CTA chest was negative for PE -Continue PO prednisone (05/14) - Pulmonary recommends alternates doxycycline with Zithromax -Continue Spiriva, Advair, Ventolin -Required BIPAP on admisson - Now saturating well on 2L NC, will need two step prior to discharge -Blood cultures, sputum cultures negative to date - Pulmonary on board tolerating roflumilast - Counseling on smoking cessation - 2 step exercise done, did not desaturate, but her HR increase to 140's - Might consider oxygen with exertion and during sleep -Will get an ABG on RA - Keep head of the bed elevating at 30 degree to help with breathing - Will discharge on taper prednisone - Will need follow up with pulmonary ELEVATED WBC Related to steroid Afebrile Blood cx and sputum cx negative resolved SINUS TACHYCARDIA - -likely secondary to hypoxia, severe COPD exacerbation, steroid use -CTA chest negative for PE Stable LOW BACK PAIN -UA negative -xrays earlier this month reveal degenerative changes -likely MSK vs arthritic changes -continue Lidocane patch (05/14) -cannot tolerate APAP -->if lidocaine doesn't work would try Tramadol Stable GERD: Continue PPI DIARRHEA -c-diff negative -Imodium PRN -Improved HYPOTHYROIDISM -continue Synthroid HTN -stable -continue Amlodipine ANXIETY - continue Ativan prn h/o SIADH -continue Sodium Tablets as outpatient TOBACCO ABUSE -Cessation counseling given -Nicotine patch ordered AAA -2.6 cm on 04/2015 DVT PROPHYLAXIS: Sq heparin CODE STATUS: FULL CODE Consultants: Pulm Current Inpatient Medications: Current Inpatient Medications Medications (Trade) Dose Ordered Sig/Jhon Route Start Time Stop Time Status Last Admin Dose Admin Heparin Sodium (Porcine) (Heparin Sq 5000 Unit/0.5ml) 5,000 unit Q8H SQ 05/12/16 22:00 06/11/16 21:59 Acetaminophen (Tylenol Tab) 650 mg Q4H PRN PO 05/12/16 16:30 06/11/16 16:29 05/15/16 17:58 650 MG Al Hydrox/Mg Hydrox/Simethicone (Maalox Max Susp) 15 ml Q4H PRN PO 05/12/16 16:30 06/11/16 16:29 Magnesium Hydroxide (Milk Of Magnesia Susp) 30 ml Q12H PRN PO 05/12/16 16:30 06/11/16 16:29 Ondansetron HCl (Zofran Inj) 4 mg Q6H PRN IV 05/12/16 16:30 06/11/16 16:29 Polyethylene (Miralax Powder Packet) 17 gm DAILY PRN PO 05/12/16 16:30 06/11/16 16:29 Glucose (Glucose 40% Gel) 15-30 GRAMS 15 GRAMS... UD PRN PO 05/12/16 16:30 06/11/16 16:29 Glucose (Glucose Chew Tab) 4-8 Tablets 4 Tabl... UD PRN PO 05/12/16 16:30 06/11/16 16:29 Dextrose (Dextrose 50% 50ML Syringe) 25-50ML OF 50% DW IV FOR... UD PRN IV 05/12/16 16:30 06/11/16 16:29 Glucagon (Glucagon Inj) 1 mg UD PRN SQ 05/12/16 16:30 06/11/16 16:29 Doxycycline Hyclate (Vibramycin Cap) 100 mg BID PO 05/12/16 21:00 05/19/16 20:59 05/17/16 07:38 100 MG Polyethylene (Miralax Powder Packet) 17 gm BID PO 05/12/16 21:00 06/11/16 20:59 05/16/16 07:43 17 GM Docusate Sodium (coLACE CAP) 100 mg BID PO 05/12/16 21:00 06/11/16 20:59 05/16/16 07:44 100 MG Bisacodyl (Dulcolax Supp) 10 mg DAILY PRN [place] 05/12/16 16:30 06/11/16 16:29 Albuterol (Ventolin Hfa Inhaler) 2 puffs Q4H PRN INH 05/12/16 16:30 06/11/16 16:29 Amlodipine Besylate (Norvasc Tab) 2.5 mg DAILY PO 05/13/16 09:00 06/12/16 08:59 05/17/16 07:35 2.5 MG Salmeterol Xinafoate/ Fluticasone (Advair Diskus 500/50 Inh) 1 puff BID INH 05/12/16 21:00 06/11/16 20:59 05/17/16 07:33 1 PUFF Fluticasone Propionate (Flonase Nasal [place]) 2 sprays DAILY NADIA 05/13/16 09:00 06/12/16 08:59 05/17/16 07:36 2 SPRAYS Lactulose (Chronulac Syrup) 10 gm BID PRN PO 05/12/16 16:30 06/11/16 16:29 Levothyroxine Sodium (Synthroid Tab) 75 mcg DAILYBB PO 05/13/16 06:00 06/12/16 05:59 05/17/16 06:23 75 MCG Loratadine (Claritin Tab) 10 mg DAILY PO 05/13/16 09:00 06/12/16 08:59 05/17/16 07:35 10 MG Lorazepam (Ativan Tab) 0.5 mg BID PO 05/12/16 21:00 06/11/16 20:59 05/17/16 07:42 0.5 MG Potassium Chloride (Klor-Con M10) 10 meq BIDM PO 05/12/16 19:00 06/11/16 18:59 05/17/16 07:37 10 MEQ Sodium Chloride (Sodium Chloride Tab) 1 gm TID PO 05/12/16 21:00 06/11/16 20:59 05/17/16 13:36 1 GM Tiotropium [place] (Spiriva Handihaler Inhaler) 1 puff QAM INH 05/13/16 09:00 06/12/16 08:59 05/17/16 07:34 1 PUFF Travoprost (Travatan Z) 1 drops HS OPB 05/12/16 21:00 06/11/16 20:59 05/16/16 19:26 1 DROPS Ipratropium [place] (Atrovent 0.02% 0.5MG/2.5ML Neb) 0.5 mg Q6R INH 05/12/16 21:00 06/11/16 20:59 05/17/16 14:37 0.5 MG Levalbuterol (Xopenex 1.25MG/ 0.5ML Neb) 1.25 mg Q6R INH 05/12/16 21:00 06/11/16 20:59 05/17/16 14:37 1.25 MG Pantoprazole Sodium (Protonix Tab) 40 mg QAM PO 05/14/16 09:00 06/13/16 08:59 05/17/16 07:34 40 MG Miscellaneous (Remove Lidoderm Patch) 1 ea DAILY@21 N/A 05/14/16 21:00 06/13/16 20:59 05/16/16 21:00 1 EA Lidocaine (Lidoderm Patch 5%) 1 patch DAILY@0900 TD 05/15/16 09:00 06/13/16 15:44 05/17/16 07:38 1 PATCH Prednisone (PredniSONE TAB) 40 mg DAILY PO 05/15/16 09:00 06/14/16 08:59 05/17/16 07:35 40 MG Multivitamins (Multivitamin Tab) 1 tab QAM PO 05/15/16 09:00 06/14/16 08:59 05/17/16 07:38 1 TAB Loperamide HCl (Imodium Cap) 2 mg UD PRN PO 05/14/16 20:45 06/13/16 20:44 Roflumilast (Daliresp Tab) 500 mcg DAILY PO 05/16/16 09:00 06/15/16 08:59 05/17/16 07:37 500 MCG
[2016-05-17] MEDS: TRAVOPROST Z 0.004% OPH SOLN 2.5 ML BTL OPB SCH (19:32)
[2016-05-18] VITALS (7 sets, daily range): BP systolic 142–154; BP diastolic 57–74; PULSE 82–122; TEMP 36.6–36.7; O2SAT 91–95
[2016-05-18] MEDS: LEVALBUTEROL 1.25MG/0.5ML NEB INH SCH ×4 (01:52→19:33)
[2016-05-18] MEDS: IPRATROPIUM BROMIDE NEB SOLN 0.02% 2.5 ML VIAL INH SCH ×4 (01:52→19:33)
[2016-05-18] MEDS: LEVOTHYROXINE 75 MCG TAB PO SCH (05:40)
[2016-05-18] MEDS: HEPARIN SOD 5000 UNIT/0.5 ML CARP SQ SCH ×3 (05:40→21:18)
[2016-05-18] MEDS: FLUTICASONE PROPIONATE NA SPR 16 GM BTL NAE SCH (08:53)
[2016-05-18] MEDS: LORAZEPAM 0.5 MG TAB PO SCH ×2 (08:53→21:22)
[2016-05-18] MEDS: POLYETHYLENE (MIRALAX) 17 GM PACK PO SCH ×2 (08:53→21:00)
[2016-05-18] MEDS: AMLODIPINE BESYLATE 5 MG TAB PO SCH (08:55)
[2016-05-18] MEDS: PANTOprazole SOD 40 MG TAB PO SCH (08:56)
[2016-05-18] MEDS: SODIUM CHLORIDE 1 GM TAB PO SCH ×3 (08:56→21:19)
[2016-05-18] MEDS: DOXYCYCLINE HYCLATE 100 MG CAP PO SCH ×2 (08:56→21:21)
[2016-05-18] MEDS: DOCUSATE SODIUM 100 MG CAP PO SCH ×2 (09:00→21:19)
[2016-05-18] MEDS: FLUTICASONE/SALMETEROL (ADVAIR) 500/50 INH 14 PUFF INH SCH ×2 (09:01→21:19)
[2016-05-18] MEDS: ROFLUMILAST 500 MCG TAB PO SCH (09:02)
[2016-05-18] MEDS: LORATADINE 10 MG TAB PO SCH (09:03)
[2016-05-18] MEDS: POTASSIUM CHLORIDE 10 MEQ TABCR PO SCH ×2 (09:03→17:51)
[2016-05-18] MEDS: MULTIVITAMIN TAB PO SCH (09:03)
[2016-05-18] MEDS: TIOTROPIUM BROMIDE 5 PUFF/90 MCG INH INH SCH (09:03)
[2016-05-18] MEDS: LIDODERM (LIDOCAINE) PATCH 5% TD SCH (09:04)
--- NOTE | 2016-05-18 16:55 | Progress Note ---
Medicine Progress Note Date & Time of Visit: May 18, 2016 at 16:32. Subjective Pt was seen and examined Lying in bed comfortable with no distress Both daughter are in the room with her Pt saturates well on RA Pt said that she had a bad night last night she said that she had diarrhea and vomiting that kept her up She said that now she is feeling much better she denies any chest pain, palpitation, dizziness and sob. Objective Last 8 Hrs Date Time Temp Pulse Resp B/P Pulse Ox O2 Delivery O2 Flow Rate FiO2 05/18/16 14:50 36.6 107 18 149/74 93 Room Air 05/18/16 14:13 122 16 94 Room Air Physical Exam: General- No acute distress Head- atraumatic Eyes- PERRL, EOMI ENT- oropharynx clear Neck- supple, no JVD Lungs-no wheezing Heart- tachycardia, no murmur Abdomen- normal bowel sounds, soft Extremities-no calf tenderness Neuro- alert, oriented x 3; PERRL, EOMI; Skin- warm & dry Assessment & Plan ACUTE RESPIRATORY FAILURE DUE TO ACUTE EXACERBATION OF COPD -CXR without consolidation, Flu PCR - negative -CTA chest was negative for PE -Continue PO prednisone (05/14) - Pulmonary recommends alternates doxycycline with Zithromax -Continue Spiriva, Advair, Ventolin -Required BIPAP on admisson - Now saturating well on 2L NC, will need two step prior to discharge -Blood cultures, sputum cultures negative to date - Pulmonary on board tolerating roflumilast - Counseling on smoking cessation - 2 step exercise done, did not desaturate, but her HR increase to 140's - Might consider oxygen with exertion and during sleep - Keep head of the bed elevating at 30 degree to help with breathing -Overnight pulse oximetry done last night showed that she did not require any oxygen at night - Will discharge on a long course of taper prednisone - Had nausea/diarrhea/vomiting last night. -Discussed with Pulmonary dr. Nelson that recommended to d/c the roflumilast due to her GI symptoms. - Follow up with pulmonary ELEVATED WBC Related to steroid Afebrile Blood cx and sputum cx negative resolved SINUS TACHYCARDIA - -likely secondary to hypoxia, severe COPD exacerbation, steroid use -CTA chest negative for PE Stable LOW BACK PAIN -UA negative -xrays earlier this month reveal degenerative changes -likely MSK vs arthritic changes -continue Lidocane patch (05/14) -cannot tolerate APAP -->if lidocaine doesn't work would try Tramadol Stable GERD: Continue PPI DIARRHEA -c-diff negative -Imodium PRN -Improved HYPOTHYROIDISM -continue Synthroid HTN -stable -continue Amlodipine ANXIETY - continue Ativan prn h/o SIADH -continue Sodium Tablets as outpatient TOBACCO ABUSE -Cessation counseling given -Nicotine patch ordered AAA -2.6 cm on 04/2015 DVT PROPHYLAXIS: Sq heparin CODE STATUS: FULL CODE DISPOSITION WILL DISCHARGE HOME TODAY IF SHE TOLERATES DIET FOLLOW UP APPOINTMENT WITH DR. SHIN ON SatMAY 23 @ 1:50PM SCHEDULE FOLLOW UP APPOINTMENT WITH YOUR PULMONOLOGY CONTINUE PREDNISONE TAPER Consultants: Pulm Current Inpatient Medications: Current Inpatient Medications Medications (Trade) Dose Ordered Sig/Jhon Route Start Time Stop Time Status Last Admin Dose Admin Heparin Sodium (Porcine) (Heparin Sq 5000 Unit/0.5ml) 5,000 unit Q8H SQ 05/12/16 22:00 06/11/16 21:59 Acetaminophen (Tylenol Tab) 650 mg Q4H PRN PO 05/12/16 16:30 06/11/16 16:29 05/15/16 17:58 650 MG Al Hydrox/Mg Hydrox/Simethicone (Maalox Max Susp) 15 ml Q4H PRN PO 05/12/16 16:30 06/11/16 16:29 Magnesium Hydroxide (Milk Of Magnesia Susp) 30 ml Q12H PRN PO 05/12/16 16:30 06/11/16 16:29 Ondansetron HCl (Zofran Inj) 4 mg Q6H PRN IV 05/12/16 16:30 06/11/16 16:29 05/18/16 09:56 4 MG Polyethylene (Miralax Powder Packet) 17 gm DAILY PRN PO 05/12/16 16:30 06/11/16 16:29 Glucose (Glucose 40% Gel) 15-30 GRAMS 15 GRAMS... UD PRN PO 05/12/16 16:30 06/11/16 16:29 Glucose (Glucose Chew Tab) 4-8 Tablets 4 Tabl... UD PRN PO 05/12/16 16:30 06/11/16 16:29 Dextrose (Dextrose 50% 50ML Syringe) 25-50ML OF 50% DW IV FOR... UD PRN IV 05/12/16 16:30 06/11/16 16:29 Glucagon (Glucagon Inj) 1 mg UD PRN SQ 05/12/16 16:30 06/11/16 16:29 Doxycycline Hyclate (Vibramycin Cap) 100 mg BID PO 05/12/16 21:00 05/19/16 20:59 05/18/16 08:56 100 MG Polyethylene (Miralax Powder Packet) 17 gm BID PO 05/12/16 21:00 06/11/16 20:59 05/17/16 19:32 17 GM Docusate Sodium (coLACE CAP) 100 mg BID PO 05/12/16 21:00 06/11/16 20:59 05/17/16 19:32 100 MG Bisacodyl (Dulcolax Supp) 10 mg DAILY PRN [place] 05/12/16 16:30 06/11/16 16:29 Albuterol (Ventolin Hfa Inhaler) 2 puffs Q4H PRN INH 05/12/16 16:30 06/11/16 16:29 Amlodipine Besylate (Norvasc Tab) 2.5 mg DAILY PO 05/13/16 09:00 06/12/16 08:59 05/18/16 08:55 2.5 MG Salmeterol Xinafoate/ Fluticasone (Advair Diskus 500/50 Inh) 1 puff BID INH 05/12/16 21:00 06/11/16 20:59 05/18/16 09:01 1 PUFF Fluticasone Propionate (Flonase Nasal [place]) 2 sprays DAILY NADIA 05/13/16 09:00 06/12/16 08:59 05/18/16 08:53 2 SPRAYS Lactulose (Chronulac Syrup) 10 gm BID PRN PO 05/12/16 16:30 06/11/16 16:29 Levothyroxine Sodium (Synthroid Tab) 75 mcg DAILYBB PO 05/13/16 06:00 06/12/16 05:59 05/18/16 05:40 75 MCG Loratadine (Claritin Tab) 10 mg DAILY PO 05/13/16 09:00 06/12/16 08:59 05/18/16 09:03 10 MG Lorazepam (Ativan Tab) 0.5 mg BID PO 05/12/16 21:00 06/11/16 20:59 05/18/16 08:53 0.5 MG Potassium Chloride (Klor-Con M10) 10 meq BIDM PO 05/12/16 19:00 06/11/16 18:59 05/18/16 09:03 10 MEQ Sodium Chloride (Sodium Chloride Tab) 1 gm TID PO 05/12/16 21:00 06/11/16 20:59 05/18/16 13:27 1 GM Tiotropium [place] (Spiriva Handihaler Inhaler) 1 puff QAM INH 05/13/16 09:00 06/12/16 08:59 05/18/16 09:03 1 PUFF Travoprost (Travatan Z) 1 drops HS OPB 05/12/16 21:00 06/11/16 20:59 05/17/16 19:32 1 DROPS Ipratropium [place] (Atrovent 0.02% 0.5MG/2.5ML Neb) 0.5 mg Q6R INH 05/12/16 21:00 06/11/16 20:59 05/18/16 14:13 0.5 MG Levalbuterol (Xopenex 1.25MG/ 0.5ML Neb) 1.25 mg Q6R INH 05/12/16 21:00 06/11/16 20:59 05/18/16 14:13 1.25 MG Pantoprazole Sodium (Protonix Tab) 40 mg QAM PO 05/14/16 09:00 06/13/16 08:59 05/18/16 08:56 40 MG Miscellaneous (Remove Lidoderm Patch) 1 ea DAILY@21 N/A 05/14/16 21:00 06/13/16 20:59 05/17/16 19:33 1 EA Lidocaine (Lidoderm Patch 5%) 1 patch DAILY@0900 TD 05/15/16 09:00 06/13/16 15:44 05/18/16 09:04 1 PATCH Prednisone (PredniSONE TAB) 40 mg DAILY PO 05/15/16 09:00 06/14/16 08:59 05/18/16 08:55 40 MG Multivitamins (Multivitamin Tab) 1 tab QAM PO 05/15/16 09:00 06/14/16 08:59 2/3/17 09:03 1 TAB Loperamide HCl (Imodium Cap) 2 mg UD PRN PO 05/14/16 20:45 06/13/16 20:44
[2016-05-18] MEDS ORDERED: PRED10TA PO (17:13)
[2016-05-18] MEDS ORDERED: LDDP5 TD (17:13)
--- NOTE | 2016-05-18 17:18 | Discharge Instructions ---
Discharge Instructions Admission Reason for Admission: Copd Exacerbation Discharge Discharge Diagnosis / Problem: COPD EXACERBATION, LOW BACK PAIN, TACHYCARDIA, TOBACCO ABUSE Discharge Goals Goal(s): Decrease discomfort, Improve function, Improve disease control Activity Recommendations Activity Limitations: resume your previous activity ( TOLERATED) . Instructions / Follow-Up Instructions / Follow-Up WILL DISCHARGE HOME TODAY FOLLOW UP APPOINTMENT WITH DR. SHIN ON SatMAY 23 @ 1:50PM SCHEDULE FOLLOW UP APPOINTMENT WITH YOUR PULMONOLOGY CONTINUE PREDNISONE TAPER COUNSELING ON TOBACCO CESSATION Current Hospital Diet Patient's current hospital diet: Regular Diet Discharge Diet Recommended Diet: Regular Diet Pending Studies Studies pending at discharge: no Medical Emergencies . Who to Call and When: Medical Emergencies: If at any time you feel your situation is an emergency, please call 911 immediately. . Non-Emergent Contact Non-Emergency issues call your: Primary Care Provider Call Non-Emergent contact if: you have any medication questions . . "Provider Documentation" section prepared by Sylvia Mancia. VTE Core Measure Inpt VTE Proph given/why not?: Unfractionated heparin SQ
[2016-05-18] MEDS: TRAVOPROST Z 0.004% OPH SOLN 2.5 ML BTL OPB SCH (21:20)
[2016-05-19] VITALS: O2SAT 94
[2016-05-19 00:25] VITALS: BP 128/70; PULSE 101; TEMP 36.9; O2SAT 95
[2016-05-19] MEDS: IPRATROPIUM BROMIDE NEB SOLN 0.02% 2.5 ML VIAL INH SCH ×2 (02:14→07:13)
[2016-05-19] MEDS: LEVALBUTEROL 1.25MG/0.5ML NEB INH SCH ×2 (02:14→07:13)
[2016-05-19 02:15] VITALS: PULSE 107; O2SAT 93
[2016-05-19] MEDS: HEPARIN SOD 5000 UNIT/0.5 ML CARP SQ SCH (05:01)
[2016-05-19] MEDS: LEVOTHYROXINE 75 MCG TAB PO SCH (05:44)
[2016-05-19 07:14] VITALS: PULSE 100; O2SAT 97
[2016-05-19 07:36] VITALS: BP 145/69; PULSE 95; TEMP 36.6; O2SAT 99
[2016-05-19] MEDS: LORATADINE 10 MG TAB PO SCH (08:29)
[2016-05-19] MEDS: FLUTICASONE PROPIONATE NA SPR 16 GM BTL NAE SCH (08:29)
[2016-05-19] MEDS: LORAZEPAM 0.5 MG TAB PO SCH (08:29)
[2016-05-19] MEDS: TIOTROPIUM BROMIDE 5 PUFF/90 MCG INH INH SCH (08:30)
[2016-05-19] MEDS: AMLODIPINE BESYLATE 5 MG TAB PO SCH (08:31)
[2016-05-19] MEDS: DOXYCYCLINE HYCLATE 100 MG CAP PO SCH (08:31)
[2016-05-19] MEDS: PANTOprazole SOD 40 MG TAB PO SCH (08:31)
[2016-05-19] MEDS: SODIUM CHLORIDE 1 GM TAB PO SCH (08:32)
[2016-05-19] MEDS: MULTIVITAMIN TAB PO SCH (08:32)
[2016-05-19] MEDS: FLUTICASONE/SALMETEROL (ADVAIR) 500/50 INH 14 PUFF INH SCH (08:32)
[2016-05-19] MEDS: POLYETHYLENE (MIRALAX) 17 GM PACK PO SCH (08:32)
[2016-05-19] MEDS: DOCUSATE SODIUM 100 MG CAP PO SCH (08:32)
[2016-05-19] MEDS: LIDODERM (LIDOCAINE) PATCH 5% TD SCH (08:33)
[2016-05-19] MEDS: POTASSIUM CHLORIDE 10 MEQ TABCR PO SCH (11:19)
[2016-05-19 11:34] VITALS: BP 145/69; PULSE 95; TEMP 36.6; O2SAT 99
--- NOTE | 2016-05-19 19:13 | Progress Note ---
Medicine Progress Note Date & Time of Visit: May 19, 2016 at 19:10. Subjective Pt was seen and examined Sitting at the edge of the bed with no distress Pt said that she feels good she said that she did not any GI symptoms overnight Denies any diarrhea, vomited, fever, chest pain and palpitation she feels that her breathing is better Objective Last 8 Hrs Date Time Temp Pulse Resp B/P Pulse Ox O2 Delivery O2 Flow Rate FiO2 05/19/16 11:34 36.6 95 20 99 Room Air Physical Exam: General- No acute distress Head- atraumatic Eyes- PERRL, EOMI ENT- oropharynx clear Neck- supple, no JVD Lungs-no wheezing Heart- tachycardia, no murmur Abdomen- normal bowel sounds, soft Extremities-no calf tenderness Neuro- alert, oriented x 3; PERRL, EOMI; Skin- warm & dry Assessment & Plan ACUTE RESPIRATORY FAILURE DUE TO ACUTE EXACERBATION OF COPD -CXR without consolidation, Flu PCR - negative -CTA chest was negative for PE -Continue PO prednisone (05/14) - Pulmonary recommends alternates doxycycline with Zithromax -Continue Spiriva, Advair, Ventolin -Required BIPAP on admisson - Now saturating well on 2L NC, will need two step prior to discharge -Blood cultures, sputum cultures negative to date - Pulmonary on board tolerating roflumilast - Counseling on smoking cessation - 2 step exercise done, did not desaturate, but her HR increase to 140's - Might consider oxygen with exertion and during sleep - Keep head of the bed elevating at 30 degree to help with breathing -Overnight pulse oximetry done last night showed that she did not require any oxygen at night - Will discharge on a long course of taper prednisone - Had nausea/diarrhea/vomiting last night. -Discussed with Pulmonary dr. Nelson that recommended to d/c the roflumilast due to her GI symptoms. - Follow up with pulmonary ELEVATED WBC Related to steroid Afebrile Blood cx and sputum cx negative resolved SINUS TACHYCARDIA - -likely secondary to hypoxia, severe COPD exacerbation, steroid use -CTA chest negative for PE Stable LOW BACK PAIN -UA negative -xrays earlier this month reveal degenerative changes -likely MSK vs arthritic changes -continue Lidocane patch (05/14) -cannot tolerate APAP -->if lidocaine doesn't work would try Tramadol Stable GERD: Continue PPI DIARRHEA -c-diff negative -Imodium PRN -Improved HYPOTHYROIDISM -continue Synthroid HTN -stable -continue Amlodipine ANXIETY - continue Ativan prn h/o SIADH -continue Sodium Tablets as outpatient TOBACCO ABUSE -Cessation counseling given -Nicotine patch ordered AAA -2.6 cm on 04/2015 DVT PROPHYLAXIS: Sq heparin CODE STATUS: FULL CODE DISPOSITION WILL DISCHARGE HOME TODAY IF SHE TOLERATES DIET FOLLOW UP APPOINTMENT WITH DR. SHIN ON SatMAY 23 @ 1:50PM SCHEDULE FOLLOW UP APPOINTMENT WITH YOUR PULMONOLOGY CONTINUE PREDNISONE TAPER Consultants: Teto
--- NOTE | 2016-05-23 06:26 | Discharge Summary ---
Discharge Summary Admission Date: May 12, 2016 at 16:17 Discharge Date: May 19, 2016 Discharge Disposition: Home Principal Diagnosis: ACUTE RESPIRATORY FAILURE DUE TO COPD EXACERBATION Secondary Diagnoses/Problems: sinus Tachycardia Anxiety Elevated WBC Low Back Pain Diarrhea HTN Procedures: Patient Name: ASHLI LEMOS Unit Number: [id number] Dictated: 05/13/16944 Transcribed: 05/13/16944 PA Printed Date/Time: [~ rep prt dt]/[~ rep prt tm] [~ rep ct labl] - [~ rep ct ivnm] [facility] Radiology Department [place], [place] [id number] Dictated: 05/13/16944 Transcribed: 05/13/16944 PA Printed Date/Time: [~ rep prt dt]/[~ rep prt tm] [~ rep ct labl] - [~ rep ct ivnm] CHEST CTA for PULMONARY ARTERIES CT DOSE: 206.86 mGy.cm HISTORY: Atypical chest pain. TECHNIQUE: Multiaxial CT images of the chest were performed following the intravenous administration of contrast to evaluate the pulmonary arteries. Maximal intensity projection images were also obtained. COMPARISON STUDY: Chest CTA 01/03/2016. FINDINGS: There is a normal caliber thoracic aorta with no evidence for dissection. There is no evidence for pulmonary embolus. No pleural effusions. No pneumothorax. The liver and spleen are unremarkable. No mediastinal or hilar lymphadenopathy. The central airways are patent. Severe emphysema. No focal lung consolidations to suggest pneumonia. IMPRESSION: No evidence for pulmonary embolus. Severe emphysema. Electronically signed by: Erik Christensen M.D. 05/13/2016 9:55 AM Dictated Date/Time: 05/13/2016 9:45 AM The status of this report is Signed. Draft = Not yet reviewed or approved by Radiologist. Signed = Reviewed and approved by Radiologist. <AttendingPhy>Dionne August, </AttendingPhy> <FamilyPhy>Malik Shin M.D. (MEDICAL)</FamilyPhy> <PrimaryPhy>Malik Shin M.D. (MEDICAL)</ PrimaryPhy> <UnitNumber>[id number]</UnitNumber> <VisitNumber>[id number]</ VisitNumber> <PatientName>ASHLI LEMOS</PatientName> <DateOfBirth>1939</DateOfBirth> <Location>[facility]</Location> <ServiceDate>05/12/16</ServiceDate > <MNE>ESINDI</MNE> <OrderingPhy>Mechelle Melton MD</OrderingPhy> < OrderingPhyMNE>f rep ord dr bo</OrderingPhyMNE> <DictatingPhyMNE>f rep dict dr bo</DictatingPhyMNE> <CCListMNE>f rep ct nereydae</CCListMNE> <AdmittingPhyMNE>f pt admit dr bo</AdmittingPhyMNE> <AttendingPhyMNE>f pt attend dr bo</ AttendingPhyMNE> <ConsultingPhyMNE>f pt consult dr bo</ConsultingPhyMNE> <FamilyPhyMNE>f pt fam dr bo</FamilyPhyMNE> <OtherPhyMNE>f pt other dr bo</OtherPhyMNE> < PrimaryPhyMNE>f pt prim care dr bo</PrimaryPhyMNE> <ReferringPhyMNE>f pt referring dr bo</ReferringPhyMNE> Consultations: Pulm Medication Reconciliation New Medications: Lidocaine (Lidocaine) 1 Patch Tdsy 1 PATCH TD DAILY@0900 for 30 Days APPLY TO LOWER BACK FOR 12HRS, THEN REMOVE FOR 12 HRS Prednisone Tab (Prednisone) 10 Mg Tab 10 MG PO UD for 30 Days, TAB TAKE 40 MG FOR 2 DAYS, THEN 35 MG FOR 3 DAYS, THEN 30MG FOR 3 DAYS, THEN 25MG FOR 3 DAYS, THEN 20MG FOR 3 DAYS, THEN 15MG FOR 3 DAYS, THEN 10MG FOR 3 DAYS, THEN CONTINUE ON 5 MG DAILY Continued Medications: Albuterol Hfa (Ventolin Hfa) 200 Puffs/40898 Mcg Aers 2-4 PUFFS INH Q4H PRN for SOB/Wheezing, #1 INHALER Amlodipine Besylate (Norvasc) 2.5 Mg Tab 2.5 MG PO DAILY Azithromycin (Zithromax) 250 Mg Tab 250 MG PO 3XWK, #4 TAB - Fluticasone Prop/Salmeterol (Advair Diskus 500/50 60 Dose) 1 Ea Aerp 1 PUFFS INH BID, #1 INHALER 5 Refills Fluticasone Propionate (Nasal) (Flonase Allergy Relief) 50 Mcg/Act Spr 2 SPRAYS NADIA DAILY Lactulose (Chronulac) 10 Gm/15 Ml Syrp 15 ML PO BID PRN for Constipation Levalbuterol Hcl (Levalbuterol) 1.25 Mg/0.5 Ml Neb 0.5 ML INH Q4H PRN for SOB/Wheezing Levothyroxine Sodium (Levothyroxine Sodium) 75 Mcg Tab 75 MCG PO DAILY Loratadine (Claritin) 10 Mg Tab 10 MG PO DAILY, TAB Lorazepam (Lorazepam) 0.5 Mg Tab 0.5 MG PO BID, #60 Potassium Chloride Microencaps (Potassium Chloride Er) 10 Meq Tab 10 MEQ PO BID TAKE THIS MEDICATION WITH FOOD. Sodium Chloride (Sodium Chloride) 1 Gm Tab 1 GM PO TID Tiotropium [place] (Spiriva Handihaler) 5 Puff/90 Mcg Aerp 1 PUFF INH QAM for 30 Days, #1 INHALER Travoprost (Travatan Z) 0.004 % [place] 1 DROPS OPB HS, #1 BTL 5 Refills Trazodone Hcl (Trazodone) 50 Mg Tab 50 MG PO HS, TAB Discontinued Medications: Prednisone (Prednisone) 10 Mg Tab 5 MG PO Q2D, TAB Admission Information HPI (per Admitting provider): Patient seen and examined. 76 year old female with PMHx of SIADH, hypothyroidism , HTN, COPD, Anxiety,and tobacco abuse presents to the ED complaining of SOB x 2 days. Patient states that she has been on a prednisone taper for the last month and is getting down to the end only taking a half of a pill. Yesterday she states she started to feel a little more SOB but not too bad. She states when she woke up today she felt extremely SOB and daughter called EMS. Patient reports associated wheezing, she states she has an occasional cough. She reports she finished a course of Biaxin last week. She states she takes zithromycin MWF. She reports she has been on back to back prednisone tapers because this keeps happening every time she gets close to the ED of the taper. She denies fevers, chills, chest pain, palpitations, nausea, vomiting, dysuria, calf pain and edema. She reports she has been having a lot of diarrhea. When EMS arrived at patients home she was 90% on RA, she received solu-medrol and nebs enroute. On arrival to ED she was placed on Bipap and is saturating well. HR is elevated and daughter reports patient gets anxious when at the hospital, WBC count was 17K, lactate is <2, CXR is without consolidation. She will be admitted for further workup and treatment. Physical Exam (per Admitting): General Appearance: + pertinent finding (Cachectic appearing 76 year old female lying in bed on BIPAP in NAD with daughter at bedside ) Head: normocephalic, atraumatic Eyes: EOMI, sclerae normal ENT: hearing grossly normal, + pertinent finding (BIPAP) Neck: supple, no JVD Respiratory/Chest: chest non-tender, + pertinent finding (On BIPAP, lungs poor air entry, decreased breath sounds, tachypnea ) Cardiovascular: no edema, no gallop, no JVD, no murmur, normal peripheral pulses, + tachycardia (150s, regular ) Abdomen/GI: normal bowel sounds, non tender, soft Back: normal inspection, no muscle spasm Extremities/Musculoskelatal: no calf tenderness, normal capillary refill, no pedal edema Neurologic/Psych: alert, oriented x 3, + pertinent finding (no motor or sensory deficits noted on gross exam ) Skin: normal color, warm/dry, no rash Lymphatic: no adenopathy Hospital Course ACUTE RESPIRATORY FAILURE DUE TO ACUTE EXACERBATION OF COPD -CXR without consolidation, Flu PCR - negative -CTA chest was negative for PE -Continue PO prednisone (05/14) - Pulmonary recommends alternates doxycycline with Zithromax -Continue Spiriva, Advair, Ventolin -Required BIPAP on admisson - Now saturating well on 2L NC, will need two step prior to discharge -Blood cultures, sputum cultures negative to date - Pulmonary on board tolerating roflumilast - Counseling on smoking cessation - 2 step exercise done, did not desaturate, but her HR increase to 140's - Might consider oxygen with exertion and during sleep - Keep head of the bed elevating at 30 degree to help with breathing -Overnight pulse oximetry done last night showed that she did not require any oxygen at night - Will discharge on a long course of taper prednisone - Had nausea/diarrhea/vomiting last night. -Discussed with Pulmonary dr. Nelson that recommended to d/c the roflumilast due to her GI symptoms. - Follow up with pulmonary ELEVATED WBC Related to steroid Afebrile Blood cx and sputum cx negative resolved SINUS TACHYCARDIA - -likely secondary to hypoxia, severe COPD exacerbation, steroid use -CTA chest negative for PE Stable LOW BACK PAIN -UA negative -xrays earlier this month reveal degenerative changes -likely MSK vs arthritic changes -continue Lidocane patch (05/14) -cannot tolerate APAP -->if lidocaine doesn't work would try Tramadol Stable GERD: Continue PPI DIARRHEA -c-diff negative -Imodium PRN -Improved HYPOTHYROIDISM -continue Synthroid HTN -stable -continue Amlodipine ANXIETY - continue Ativan prn h/o SIADH -continue Sodium Tablets as outpatient TOBACCO ABUSE -Cessation counseling given -Nicotine patch ordered AAA -2.6 cm on 04/2015 DVT PROPHYLAXIS: Sq heparin CODE STATUS: FULL CODE DISPOSITION WILL DISCHARGE HOME TODAY IF SHE TOLERATES DIET FOLLOW UP APPOINTMENT WITH DR. SHIN ON SatMAY 23 @ 1:50PM SCHEDULE FOLLOW UP APPOINTMENT WITH YOUR PULMONOLOGY CONTINUE PREDNISONE TAPER Total time spent on discharge = 35 minutes This includes examination of the patient, discharge planning, medication reconciliation, and communication with other providers. Discharge Instructions Discharge Instructions Admission Reason for Admission: Copd Exacerbation Discharge Discharge Diagnosis / Problem: COPD EXACERBATION, LOW BACK PAIN, TACHYCARDIA, TOBACCO ABUSE Discharge Goals Goal(s): Decrease discomfort, Improve function, Improve disease control Activity Recommendations Activity Limitations: resume your previous activity ( TOLERATED) . Instructions / Follow-Up Instructions / Follow-Up WILL DISCHARGE HOME TODAY FOLLOW UP APPOINTMENT WITH DR. SHIN ON SatMAY 23 @ 1:50PM SCHEDULE FOLLOW UP APPOINTMENT WITH YOUR PULMONOLOGY CONTINUE PREDNISONE TAPER COUNSELING ON TOBACCO CESSATION Current Hospital Diet Patient's current hospital diet: Regular Diet Discharge Diet Recommended Diet: Regular Diet Pending Studies Studies pending at discharge: no Medical Emergencies . Who to Call and When: Medical Emergencies: If at any time you feel your situation is an emergency, please call 911 immediately. . Non-Emergent Contact Non-Emergency issues call your: Primary Care Provider Call Non-Emergent contact if: you have any medication questions . . "Provider Documentation" section prepared by Sylvia Mancia. VTE Core Measure Inpt VTE Proph given/why not?: Unfractionated heparin SQ Additional Copies To Malik Shin M.D. (MEDICAL)
[2016-06-24] MEDS ORDERED: DXY100 PO (07:50)
[2016-06-24] MEDS ORDERED: PRD20 PO (07:50)
[2016-07-02] MEDS ORDERED: CRDCD120 PO (10:58)
[2016-07-02] MEDS ORDERED: SYMIN160 INH (10:58)
[2016-07-02] MEDS ORDERED: PRD20 PO (10:58)
[2016-07-02] MEDS ORDERED: PRLSR20 PO (10:58)
[2016-07-02] MEDS ORDERED: LCTX PO (11:04)
== END 2016-05-19 12:30 | disposition home or self-care (01) | DRG 190 ==
LOC: ENRESERVTM → ENRESERVDT → EDBD 15:13 → C.EDB 15:14 → C.2T 16:17 → C.MS2W 05-14 22:30
PROVIDERS: ADMIT Hospitalist; ATTEND Internal Medicine
DX: J44.1 Chronic obstructive pulmonary disease with (acute) exacerbation (principal); J96.01 Acute respiratory failure with hypoxia; E22.2 Syndrome of inappropriate secretion of antidiuretic hormone; E46 Unspecified protein-calorie malnutrition; I10 Essential (primary) hypertension; E03.9 Hypothyroidism, unspecified; R00.0 Tachycardia, unspecified; R19.7 Diarrhea, unspecified; F41.9 Anxiety disorder, unspecified; F17.210 Nicotine dependence, cigarettes, uncomplicated; Z79.899 Other long term (current) drug therapy; M54.5 Low back pain; I71.4 Abdominal aortic aneurysm, without rupture

== ENCOUNTER 2016-06-20 11:30 | Inpatient (IN) | payer OTHER ==
[~2016-06-20] VITALS: Ht 147.3 cm; Wt 34.1 kg
[~2016-06-20 11:30] MED LIST changes: +LDDP5 TD; -PRED10TA PO; +TRAZ50TA35 PO
[2016-06-20] MEDS ORDERED: ALBUT/IPRATROP 3MG/0.5MG NEB 3 ML VIAL ONE (11:36)
[2016-06-20] MEDS ORDERED: ALBUT/IPRATROP 3MG/0.5MG NEB 3 ML VIAL INH STA (11:38)
[2016-06-20] MEDS ORDERED: METHYLPREDNISOLONE 125 MG VIAL IV STA (11:45)
[2016-06-20] MEDS ORDERED: CEFTRIAXONE SOD INJ 1 GM ADDVIAL IV STA (11:45)
--- NOTE | 2016-06-20 11:52 | EMERGENCY ROOM VISIT NOTE ---
History Report prepared by Lauri: Michael Brady Under the Supervision of: Dr. Nhan Cochran M.D. First contact with patient: 11:40 Chief Complaint: COUGH Stated Complaint: SHORTNESS OF BREATH Nursing Triage Summary: Pt to ED via ALS Pt c/o productive cough and SOB x3 days scattered rhonchi throughout 90% on RA on EMS arrival History of Present Illness The patient is a 76 year old female with a history of COPD who presents to the Emergency Room via EMS with complaints of worsening respiratory problems that started 2 days ago. Per the nursing staff, the patient was 90% on room air on arrival. She states that her shortness of breath and cough worsened overnight. The patient notes that her cough is occasionally productive. She has had episodes of diarrhea. The patient denies any fevers or vomiting. Her last bout of COPD was around a month ago. She is currently on an antibiotic and an oral steroid for prevention. The patient did not get her flu shot this season. She states that she has not been around anyone who has been sick. She is not on oxygen at home. Source of History: patient, nursing staff Onset: 2 days ago Position: other (global - respiratory problems) Timing: worsening Associated Symptoms: + SOB, + cough, + diarrhea, No fevers, No vomiting Note: No other associated symptoms noted. Review of Systems See HPI for pertinent positives & negatives. A total of 10 systems reviewed and were otherwise negative. Past Medical & Surgical Medical Problems: (1) Allergic rhinitis (2) Chronic obstructive pulmonary disease (3) COPD exacerbation (4) Glaucoma (5) HTN (hypertension) (6) Hypothyroidism (7) Osteoporosis (8) SIADH (syndrome of inappropriate ADH production) Surgical Problems: (1) History of cataract surgery (2) History of tonsillectomy Family History Gallbladder disease Hypertension Social History Smoking Status: Former Smoker Drug Use: none Marital Status: Housing Status: lives with family Occupation Status: retired Current/Historical Medications Scheduled Amlodipine Besylate (Norvasc), 2.5 MG PO DAILY Azithromycin (Zithromax), 250 MG PO 3XWK Budesonide (Inhalation) (Pulmicort Respules 0.5MG/2ML), 2 ML INH BID Fluticasone Propionate (Nasal) (Flonase Allergy Relief), 2 SPRAYS NADIA DAILY Levothyroxine Sodium (Levothyroxine Sodium), 75 MCG PO DAILY Lidocaine (Lidocaine), 1 PATCH TD DAILY@0900 Potassium Chloride Microencaps (Potassium Chloride Er), 10 MEQ PO BID Prednisone (Prednisone), 20 MG PO DAILY Sodium Chloride (Sodium Chloride), 1 GM PO TID Tiotropium [place] (Spiriva Handihaler), 1 PUFF INH QAM Travoprost (Travatan Z), 1 DROPS OPB HS Trazodone Hcl (Trazodone), 50 MG PO HS Scheduled PRN Albuterol Hfa (Ventolin Hfa), 2-4 PUFFS INH Q4H PRN for SOB/Wheezing Lactulose (Chronulac), 15 ML PO BID PRN for Constipation Levalbuterol Hcl (Levalbuterol), 0.5 ML INH Q4H PRN for SOB/Wheezing Lorazepam (Lorazepam), 0.5 MG PO TID PRN for Anxiety Allergies Coded Allergies: Levofloxacin (Verified Allergy, Severe, ANAPHYLAXIS, 06/20/16) Patient reported that the IV site was extremely itchy and that her throat "closed up" after administration of IV Levaquin Iodinated Diagnostic Agents (Verified Allergy, Intermediate, HIVES, 06/20/16 ) Iodine (Unverified Allergy, Intermediate, HIVES, 06/20/16) PT STATES SHE GETS HIVES WHEN INJECTED WITH CONTRASTMEDIA Vancomycin (Verified Allergy, Intermediate, RASH, 06/20/16) PATIENT HAD RASH, HOT, FLUSHING AT THE END OF INFUSION. Codeine (Verified Allergy, Unknown, 06/20/16) Penicillins (Verified Allergy, Unknown, 06/20/16) Shellfish (Verified Allergy, Unknown, SEAFOOD = HIVES, 06/20/16) Sulfa Antibiotics (Verified Adverse Reaction, Mild, NAUSEA/VOMIT, 06/20/16) Physical Exam Vital Signs Date Time Temp Pulse Resp B/P Pulse Ox O2 Delivery O2 Flow Rate FiO2 06/20/16 13:29 88 Room Air 06/20/16 13:28 100 22 143/87 93 Room Air 06/20/16 13:25 98 Room Air 06/20/16 12:09 104 06/20/16 11:41 95 Room Air 06/20/16 11:35 36.7 116 24 174/98 95 Room Air 06/20/16 11:35 95 Room Air Physical Exam GENERAL: Patient is in no acute distress. HEENT: No acute trauma, normocephalic atraumatic, mucous membranes moist, no nasal congestion, no scleral icterus. NECK: No stridor, no adenopathy, no meningismus, trachea is midline. LUNGS: Diminished breath sounds bilaterally. Breath sounds are equal bilaterally. No wheezing or rhonchi. Increased respiratory rate. HEART: Tachycardic heart rate with a regular rhythm. No murmurs. ABDOMEN: Soft, nontender, bowel sounds positive, no hernias, no peritonitis. EXTREMITIES: No cyanosis or edema, full range of motion of all the joints without pain or difficulty, no signs for acute trauma. NEUROLOGIC: Oriented x 3, no acute motor or sensory deficits, no focal weakness. SKIN: No rash, no jaundice, no diaphoresis. Medical Decision & Procedures ER Provider Diagnostic Interpretation: X-ray results as stated below per interpretation by me and the radiologist: CHEST ONE VIEW PORTABLE CLINICAL HISTORY: cough COMPARISON STUDY: 05/12/2016 FINDINGS: The cardiac and mediastinal contours are normal. There is no evidence of focal pulmonary consolidation. There is no evidence of failure. No pleural effusions are visualized.[ There is pulmonary emphysema. IMPRESSION: Emphysema. No acute findings. Electronically signed by: Rafy Ortiz M.D. 06/20/2016 11:57 AM Dictated Date/Time: 06/20/2016 11:56 AM Laboratory Results 06/20/16 12:00 Red Blood Count 3.77, Mean Corpuscular Volume 95.8, Mean Corpuscular Hemoglobin 33.7, Mean Corpuscular Hemoglobin Concent 35.2, Mean Platelet Volume 8.9, Neutrophils (%) (Auto) 83.8, Lymphocytes (%) (Auto) 12.0, Monocytes (%) (Auto) 2.7, Eosinophils (%) (Auto) 0.1, Basophils (%) (Auto) 0.1, Neutrophils # (Auto) 10.67, Lymphocytes # (Auto) 1.52, Monocytes # (Auto) 0.34, Eosinophils # (Auto) 0.01, Basophils # (Auto) 0.01 06/20/16 12:00 Test 06/20/16 12:00 06/20/16 12:15 White Blood Count 12.71 K/uL (4.8-10.8) Red Blood Count 3.77 M/uL (4.2-5.4) Hemoglobin 12.7 g/dL (12.0-16.0) Hematocrit 36.1 % (37-47) Mean Corpuscular Volume 95.8 fL (80-100) Mean Corpuscular Hemoglobin 33.7 pg (25-34) Mean Corpuscular Hemoglobin Concent 35.2 g/dl (32-36) Platelet Count 246 K/uL (130-400) Mean Platelet Volume 8.9 fL (7.4-10.4) Neutrophils (%) (Auto) 83.8 % Lymphocytes (%) (Auto) 12.0 % Monocytes (%) (Auto) 2.7 % Eosinophils (%) (Auto) 0.1 % Basophils (%) (Auto) 0.1 % Neutrophils # (Auto) 10.67 K/uL (1.4-6.5) Lymphocytes # (Auto) 1.52 K/uL (1.2-3.4) Monocytes # (Auto) 0.34 K/uL (0.11-0.59) Eosinophils # (Auto) 0.01 K/uL (0-0.5) Basophils # (Auto) 0.01 K/uL (0-0.2) RDW Standard Deviation 50.1 fL (36.4-46.3) RDW Coefficient of Variation 14.4 % (11.5-14.5) Immature Granulocyte % (Auto) 1.3 % Immature Granulocyte # (Auto) 0.16 K/uL (0.00-0.02) Anion Gap 11.0 mmol/L (3-11) Est Creatinine Clear Calc Drug Dose 37.0 ml/min Estimated GFR () 80.5 Estimated GFR (Non- 69.5 BUN/Creatinine Ratio 23.8 (10-20) Calcium Level 9.2 mg/dl (8.5-10.1) Magnesium Level 2.1 mg/dl (1.8-2.4) Total Bilirubin 0.5 mg/dl (0.2-1) Aspartate Amino Transf (AST/SGOT) 15 U/L (15-37) Alanine Aminotransferase (ALT/SGPT) 25 U/L (12-78) Alkaline Phosphatase 91 U/L (45-117) Troponin I < 0.015 ng/ml (0-0.045) Total Protein 7.3 gm/dl (6.4-8.2) Albumin 3.5 gm/dl (3.4-5.0) Globulin 3.8 gm/dl (2.5-4.0) Albumin/Globulin Ratio 0.9 (0.9-2) Influenza Type A (RT-PCR) Neg for Influ A (NEG) Influenza Type B (RT-PCR) Neg for Influ B (NEG) Laboratory results reviewed by me. Medications Administered Medications (Trade) Dose Ordered Sig/Jhon Route Start Time Stop Time Status Last Admin Dose Admin Albuterol/ Ipratropium (Duoneb) 3 ml NOW STAT INH 06/20/16 11:38 06/20/16 11:39 DC 06/20/16 11:38 3 ML Ceftriaxone Sodium (Rocephin Inj) 1 gm NOW STAT IV 06/20/16 11:45 06/20/16 11:48 DC 06/20/16 12:08 1 GM Methylprednisolone Sodium Succinate (Solu-Medrol IV) 80 mg NOW STAT IV 06/20/16 11:45 06/20/16 11:48 DC 06/20/16 12:08 80 MG ECG Indication: SOB/dyspnea Rate (beats per minute): 105 Rhythm: sinus tachycardia Findings: no acute ischemic change, no ectopy ED Course 1138: Ordered Duoneb 3 ml INH. 1142: The patient was evaluated in room C3. A complete history and physical exam was performed. 1145: Ordered Solu-Medrol IV 80 mg IV, Rocephin Inj 1 gm IV. 1309: Upon reexamination the patient is resting comfortably. I discussed results and treatment plan with the patient. She verbalizes agreement and understanding. The patient will be evaluated for further management. 1311: I discussed the patient with Dr. Mata Mak senior manager - she will evaluate the patient for further treatment. Medical Decision Differential diagnosis includes but is not limited to exacerbation of COPD, acute bronchitis, pneumonia, CHF, cardiac ischemia, pneumothorax, failed outpatient treatment, influenza. There is a mild leukocytosis which would be consistent with infection, no concerning anemia. No significant electrolyte abnormality, kidney failure or hepatitis. EKG shows a sinus tachycardia, no acute ischemia. Cardiac enzyme testing times one is not consistent with acute cardiac injury. Chest film shows COPD, there was no evidence for pneumonia or pneumothorax, no CHF. Blood cultures are pending. Influenza testing was negative. The patient seemed in some respiratory distress. She was given a DuoNeb, IV Solu-Medrol and IV ceftriaxone. The patient has had improvement in her respiratory symptoms with the above treatment. Given her presentation and her respiratory distress, I do think admission/observation is warranted. The patient appears to have an acute bronchitis with an exacerbation of her COPD. I spoke to case management, I talked with the on-call hospitalist. Consults Time Called: 1305 Consulting Physician: Dr. Mata Mak senior manager Returned Call: 1311 I discussed the patient with Dr. Mata Mak senior manager - she will evaluate the patient for further treatment. Impression Primary Impression: Respiratory distress Additional Impressions: Acute bronchitis COPD exacerbation Scribe Attestation The scribe's documentation has been prepared under my direction and personally reviewed by me in its entirety. I confirm that the note above accurately reflects all work, treatment, procedures, and medical decision making performed by me. Departure Information Dispostion Being Evaluated By Hospitalist Referrals Malik Forman M.D. (MEDICAL) (PCP) Patient Instructions My [facility] Problem Qualifiers
--- NOTE | 2016-06-20 11:58 | DIAGNOSTIC IMAGING REPORT ---
CHEST ONE VIEW PORTABLE CLINICAL HISTORY: cough COMPARISON STUDY: 05/12/2016 FINDINGS: The cardiac and mediastinal contours are normal. There is no evidence of focal pulmonary consolidation. There is no evidence of failure. No pleural effusions are visualized.[ There is pulmonary emphysema. IMPRESSION: Emphysema. No acute findings. Electronically signed by: Rafy Ortiz M.D. 06/20/2016 11:57 AM Dictated Date/Time: 06/20/2016 11:56 AM
[2016-06-20] MEDS ORDERED: PLMINS INH (12:09)
[2016-06-20] MEDS ORDERED: PRED10TA PO (12:09)
[2016-06-20 12:12] LABS: BASO % 0.1 %; BASO ABS # 0.01 K/uL (0-0.2); COMPLETE YES; EOS % 0.1 %; HEMATOCRIT 36.1 % (37-47); IG% 1.3 %; LYMPH ABS # 1.52 K/uL (1.2-3.4); MEAN CELL VOLUME 95.8 fL (80-100); MEAN CORPUSCULAR HEMOGLOBIN 33.7 pg (25-34); MEAN CORPUSCULAR HGB CONC 35.2 g/dl (32-36); MEAN PLATELET VOLUME 8.9 fL (7.4-10.4); MONO % 2.7 %; NEUT % 83.8 %; PLATELET COUNT 246 K/uL (130-400); RED BLOOD COUNT 3.77 M/uL (4.2-5.4); WHITE BLOOD COUNT 12.71 K/uL (4.8-10.8)
[2016-06-20 12:32] LABS: BLOOD UREA NITROGEN 20 mg/dl (7-18); CREATININE 0.83 mg/dl (0.60-1.20); GLUCOSE 132 mg/dl (70-99)
[2016-06-20 12:33] LABS: ALT/SGPT 25 U/L (12-78); AST/SGOT 15 U/L (15-37); BUN/CREATININE RATIO 23.8 (10-20); CALCIUM 9.2 mg/dl (8.5-10.1); CARBON DIOXIDE 24 mmol/L (21-32); CHLORIDE 100 mmol/L (98-107); MAGNESIUM 2.1 mg/dl (1.8-2.4); POTASSIUM 3.9 mmol/L (3.5-5.1); SODIUM 135 mmol/L (136-145)
[2016-06-20 12:38] LABS: ALB/GLOB RATIO 0.9 (0.9-2); ALKALINE PHOSPHATASE 91 U/L (45-117)
[2016-06-20 13:25] VITALS: O2SAT 98; Ht 147.3 cm; Wt 34.1 kg
[2016-06-20] MEDS ORDERED: LACTULOSE SYRUP 10 GM/15 ML BTL 473 ML PO PRN (14:00)
[2016-06-20] MEDS ORDERED: ONDANSETRON INJ 2 MG/ML 2 ML VIAL IV PRN (14:00)
[2016-06-20] MEDS ORDERED: ACETAMINOPHEN 325 MG TAB PO PRN (14:00)
[2016-06-20 14:12] LABS: INFLUENZA A PCR Neg for Influ A (NEG); INFLUENZA B PCR Neg for Influ B (NEG)
--- NOTE | 2016-06-20 14:15 | History and Physical ---
History & Physical Date & Time of Service: Jun 20, 2016 at 14:01 Chief Complaint: Shortness Of Breath Primary Care Physician: Malik Forman M.D. (MEDICAL) History of Present Illness Source: patient, family, clinic records, hospital records Patient seen and examined. 76 year old female with PMHX of COPD, HTN, Hypothyroidism, SIADH, and anxiety presents to the ED complaining of SOB x 3 days. Patient reports she has had increasing SOB over the last three days. She has associated cough which is sometimes productive. She reports associated nasal congestion. She states shehas some wheezing. She states she has been using her nebulizers at home with some relief. She reports the SOB has been worsening until this morning she felt she could not breath at all and EMS was called. Patient is currently on a long prednisone taper and current dose is 20 mg daily. She also takes prophylactic Azithromycin on MWF. She denies fevers, chills, chest pain, palpitations, nausea, vomiting, diarrhea, dysuria, calf pain and edema. She denies sick contacts. Patient was admitted for similar symptoms at the end of April. She reports she has not smoked since before that admission. She reports several years ago she was on oxygen therapy but it was taken away. Last admission a 2 step pulse ox did not show significant desaturation. In the ED patient was mildly tachycardic and tachypneic. She was saturating well on RA at rest. She had mild leukocytosis, CXR was negative for acute changes. She received Rocephin, Solu-Medrol and Duonebs. She reports feeling a little better. After ambulating to the bathroom patient was hypoxic on RA. She was placed on supplemental oxygen. She will be admitted for further workup and treatment. Past Medical/Surgical History Medical Problems: (1) Allergic rhinitis Status: Chronic (2) Chronic obstructive pulmonary disease Status: Chronic (3) Glaucoma Status: Chronic (4) HTN (hypertension) Status: Chronic (5) Hypothyroidism Status: Chronic (6) Osteoporosis Status: Chronic (7) SIADH (syndrome of inappropriate ADH production) Status: Chronic Surgical Problems: (1) History of cataract surgery Status: Chronic (2) History of tonsillectomy Status: Resolved Family History Gallbladder disease Hypertension Social History Smoking Status: Former Smoker Alcohol Use: none Drug Use: none Marital Status: Housing status: lives with family Occupational Status: retired Immunizations History of Influenza Vaccine: No History of Tetanus Vaccine?: Unknown History of Pneumococcal: Yes Pneumococcal Date: Jun 13, 2009 History of Hepatitis B Vaccine: No Multi-Drug Resistant Organisms History of MDRO: No Allergies Coded Allergies: Levofloxacin (Verified Allergy, Severe, ANAPHYLAXIS, 06/20/16) Patient reported that the IV site was extremely itchy and that her throat "closed up" after administration of IV Levaquin Iodinated Diagnostic Agents (Verified Allergy, Intermediate, HIVES, 06/20/16 ) Iodine (Unverified Allergy, Intermediate, HIVES, 06/20/16) PT STATES SHE GETS HIVES WHEN INJECTED WITH CONTRASTMEDIA Vancomycin (Verified Allergy, Intermediate, RASH, 06/20/16) PATIENT HAD RASH, HOT, FLUSHING AT THE END OF INFUSION. Codeine (Verified Allergy, Unknown, 06/20/16) Penicillins (Verified Allergy, Unknown, 06/20/16) Shellfish (Verified Allergy, Unknown, SEAFOOD = HIVES, 06/20/16) Sulfa Antibiotics (Verified Adverse Reaction, Mild, NAUSEA/VOMIT, 06/20/16) Home Medications Scheduled Amlodipine Besylate (Norvasc), 2.5 MG PO DAILY Azithromycin (Zithromax), 250 MG PO 3XWK Budesonide (Inhalation) (Pulmicort Respules 0.5MG/2ML), 2 ML INH BID Fluticasone Propionate (Nasal) (Flonase Allergy Relief), 2 SPRAYS NADIA DAILY Levothyroxine Sodium (Levothyroxine Sodium), 75 MCG PO DAILY Lidocaine (Lidocaine), 1 PATCH TD DAILY@0900 Potassium Chloride Microencaps (Potassium Chloride Er), 10 MEQ PO BID Prednisone (Prednisone), 20 MG PO DAILY Sodium Chloride (Sodium Chloride), 1 GM PO TID Tiotropium [place] (Spiriva Handihaler), 1 PUFF INH QAM Travoprost (Travatan Z), 1 DROPS OPB HS Trazodone Hcl (Trazodone), 50 MG PO HS Scheduled PRN Albuterol Hfa (Ventolin Hfa), 2-4 PUFFS INH Q4H PRN for SOB/Wheezing Lactulose (Chronulac), 15 ML PO BID PRN for Constipation Levalbuterol Hcl (Levalbuterol), 0.5 ML INH Q4H PRN for SOB/Wheezing Lorazepam (Lorazepam), 0.5 MG PO TID PRN for Anxiety Review of Systems See above for pertinent positives & negatives. A total of 10 systems reviewed and were otherwise negative. Physical Exam Vital Signs Date Time Temp Pulse Resp B/P Pulse Ox O2 Delivery O2 Flow Rate FiO2 06/20/16 13:29 88 Room Air 06/20/16 13:28 100 22 143/87 93 Room Air 06/20/16 12:09 104 06/20/16 11:41 95 Room Air 06/20/16 11:35 36.7 116 24 174/98 95 Room Air 06/20/16 11:35 95 Room Air General Appearance: + pertinent finding (Pleasant ill appearing 76 year old female lying in bed in NAD ) Head: normocephalic, atraumatic Eyes: PERRL, EOMI, sclerae normal ENT: hearing grossly normal, pharynx normal Neck: supple, no JVD Respiratory/Chest: chest non-tender, + pertinent finding (Decreased breath sounds, decreased air entry, scattered rhonchi and wheezes, mild tachypnea, occasional conversational dyspnea ) Cardiovascular: no edema, no gallop, no JVD, no murmur, normal peripheral pulses, + tachycardia (low 100s, regular ) Abdomen/GI: normal bowel sounds, non tender, soft Back: normal inspection, no muscle spasm Extremities/Musculoskelatal: no calf tenderness, normal capillary refill, no pedal edema Neurologic/Psych: alert, oriented x 3, + pertinent finding (no motor or sensory deficits noted on gross exam ) Skin: normal color, warm/dry, no rash Lymphatic: no adenopathy Diagnostics Laboratory Results Results Past 24 Hours Test 06/20/16 12:00 06/20/16 12:15 Range/Units White Blood Count 12.71 4.8-10.8 K/uL Red Blood Count 3.77 4.2-5.4 M/uL Hemoglobin 12.7 12.0-16.0 g/dL Hematocrit 36.1 37-47 % Mean Corpuscular Volume 95.8 80-100 fL Mean Corpuscular Hemoglobin 33.7 25-34 pg Mean Corpuscular Hemoglobin Concent 35.2 32-36 g/dl Platelet Count 246 130-400 K/uL Mean Platelet Volume 8.9 7.4-10.4 fL Neutrophils (%) (Auto) 83.8 % Lymphocytes (%) (Auto) 12.0 % Monocytes (%) (Auto) 2.7 % Eosinophils (%) (Auto) 0.1 % Basophils (%) (Auto) 0.1 % Neutrophils # (Auto) 10.67 1.4-6.5 K/uL Lymphocytes # (Auto) 1.52 1.2-3.4 K/uL Monocytes # (Auto) 0.34 0.11-0.59 K/uL Eosinophils # (Auto) 0.01 0-0.5 K/uL Basophils # (Auto) 0.01 0-0.2 K/uL RDW Standard Deviation 50.1 36.4-46.3 fL RDW Coefficient of Variation 14.4 11.5-14.5 % Immature Granulocyte % (Auto) 1.3 % Immature Granulocyte # (Auto) 0.16 0.00-0.02 K/uL Sodium Level 135 136-145 mmol/L Potassium Level 3.9 3.5-5.1 mmol/L Chloride Level 100 98-107 mmol/L Carbon Dioxide Level 24 21-32 mmol/L Anion Gap 11.0 3-11 mmol/L Blood Urea Nitrogen 20 7-18 mg/dl Creatinine 0.83 0.60-1.20 mg/dl Est Creatinine Clear Calc Drug Dose 37.0 ml/min Estimated GFR () 80.5 Estimated GFR (Non- 69.5 BUN/Creatinine Ratio 23.8 10-20 Random Glucose 132 70-99 mg/dl Calcium Level 9.2 8.5-10.1 mg/dl Magnesium Level 2.1 1.8-2.4 mg/dl Total Bilirubin 0.5 0.2-1 mg/dl Aspartate Amino Transf (AST/SGOT) 15 15-37 U/L Alanine Aminotransferase (ALT/SGPT) 25 12-78 U/L Alkaline Phosphatase 91 45-117 U/L Troponin I < 0.015 0-0.045 ng/ml Total Protein 7.3 6.4-8.2 gm/dl Albumin 3.5 3.4-5.0 gm/dl Globulin 3.8 2.5-4.0 gm/dl Albumin/Globulin Ratio 0.9 0.9-2 Microbiology Results 06/20/16 Blood Culture, Received Pending 06/20/16 Blood Culture, Received Pending Diagnostic Radiology CXR Per radiologist read:IMPRESSION: Emphysema. No acute findings. EKG Sinus Tachycardia 105 BPM, QTc 430 Impression Assessment and Plan 76 year old female with COPD recently quit smoking 1 month ago with 40+ pack year history presents to the ED complaining of cough, SOB x 3 days ACUTE EXACERBATION OF COPD -Admit to tele -Likely secondary to acute bronchitis, CXR negative for acute changes, flu swab pending -WBC count 12K, afebrile -On 20mg prednisone as outpatient, change to IV Solu-Medrol 40 q8h -Empirically treat for infection with Doxycycline -hold prophylactic azithromycin -Duonebs scheduled and prn -Continue Spiriva, Pulmicort -Continue oxygen supplementation as needed, will need repeat 2 step prior to discharge -Blood cultures, sputum cultures pending -CBC, PRP, Mg daily HYPOTHYROIDISM -continue Synthroid HTN -slightly high -continue Amlodipine -monitor in tele ANXIETY - continue Ativan prn SIADH -Sodium 135 today -continue Sodium Tablets AAA -2.6 cm on 04/2015 CHRONIC BACK PAIN -continue lidocaine patch INSOMNIA -continue Trazodone RECENT TOBACCO CESSATION -quit approximately one month ago, applauded efforts -40+ pack year history DVT PROPHYLAXIS: Sq heparin CODE STATUS: FULL CODE DISPO:In my clinical judgment this beneficiary meets acute admission criteria, established by [facility], that includes being hospitalized through two midnights. Patient seen in collaboration with Dr. August ADDENDUM: I have seen and examined the patient and have discussed the case with the provider above. I agree with the assessment and plan as stated. 76 yo female with COPD exacerbation without hypoxia presents with SOB, coughing, sputum changes over the past 3 days. No fevers, chills or focal infiltrates on CXR. No wheezing on exam today (after steroids and nebs in ER). Agree with management as above and consult to pulm who has had her on [facility] Azithromycin and prednisone 20mg PO daily long-term. Other chronic medical issues appear to be stable. Cont monitoring on telemetry overnight. Dionne August DO Hospitalist Level of Care Telemetry Advanced Directives Existing Advance Directive: Yes Resuscitation Status FULL RESUSCITATION VTE Prophylaxis VTE Risk Assessment Done? Y/N: Yes Risk Level: Moderate Given or contraindicated: Unfractionated heparin SQ
[2016-06-20 15:23] VITALS: BP 131/77; PULSE 100; TEMP 36.5; O2SAT 94
[2016-06-20 15:38] VITALS: PULSE 99; O2SAT 92
[2016-06-20] MEDS: SODIUM CHLORIDE 1 GM TAB PO SCH ×2 (15:48→20:10)
[2016-06-20] MEDS: ALBUT/IPRATROP 3MG/0.5MG NEB 3 ML VIAL INH SCH ×2 (16:03→20:05)
--- NOTE | 2016-06-20 16:53 | PULMONARY CONSULTATION ---
DATE OF CONSULTATION: 06/20/2016 DATE OF CONSULTATION: 06/20/2016. TIME: 3:55 p.m. HISTORY OF PRESENT ILLNESS: The patient was seen in room 218. She is a 76-year-old female with a longstanding history of emphysema and COPD. She had been recently hospitalized with an exacerbation from 05/12/2016 until 05/19/2016. She states she did well following discharge for a period of time. She was following up with Renata Garcia PA-C in the [place] pulmonary office. She does not relate any significant problems until about 3 days ago. Her symptoms started with nasal congestion. Subsequently, the cold seemed to go down into her chest. She has had a harsh cough. She has been expectorating some green sputum. There has been no hemoptysis. She has had more shortness of breath than normal. Likewise, she has had more cough than normal. She has had some chest pains on the right chest. She states these would sometimes last a couple of minutes. Her energy level has been low. The patient lives with her daughter. She stays on one floor. She has a hospital bed situated such that she could live on the first floor. She did not have chills, fevers or sweats. She has not had nausea or vomiting. She does have some intermittent constipation and diarrhea. Recently it has been more loose stools than constipation. Her prednisone is down to 20 mg a day but that is the lowest she has had since discharge. She has been on prophylactic azithromycin on Saturday, Saturday, Saturday. The patient states she feels better now than she did in the Emergency Room. In the ER, she was given Solu-Medrol as well as Rocephin. I suspect she had nebulizer treatments, but I am not certain of that. I am somewhat confused by what nebulizer solutions the patient has. She tells me she has 3 different kinds. One clearly is budesonide. She states that was started and the Advair was stopped. She describes having one Nebulizer solution that is mixed with 2 medicines and I assume that would be albuterol/ipratropium. That is not listed upon her current medicines however. She is also listed as having levalbuterol, although she told me it was albuterol. The patient has been having more respiratory problems. She had been in the ER on 03/14/2016 for breathing. She also was in the ER on 01/05/2016. She was hospitalized from 10/18/2015 until 10/26/2015. Thus, the frequency of her exacerbations are increasing. It is unknown if she has been on any Daliresp. The patient reportedly quit smoking since her last hospital stay. Prior to that, she had smoked about a pack a day for 34 years. Curiously, she denies that she had difficulty quitting smoking. She insists she could have quit, but she just wanted to smoke. PAST SURGICAL HISTORY: 1. Cataract surgery bilaterally. 2. Tonsillectomy. PAST MEDICAL HISTORY: 1. COPD. 2. Panic attacks. 3. Allergic rhinitis. 4. Glaucoma. 5. Hypertension. 6. Osteoporotic. 7. Hypothyroidism. 8. Childbirth x5. 9. SIADH. ALLERGIES: LISTED ALLERGIES TO LEVOFLOXACIN WHICH REPORTEDLY GAVE ANAPHYLAXIS. OTHER MEDICINES INCLUDE PENICILLIN, SULFA, VANCOMYCIN, CODEINE, AND SHELLFISH. OCCUPATIONAL HISTORY: The patient was a housewife. She worked for just 3 or 4 years in a [employer]. FAMILY HISTORY: Positive for hypertension and gallbladder disease. REVIEW OF SYSTEMS: GENERAL: The patient's energy level is low as noted. She denies syncope or near syncope. OPHTHALMIC: She denies visual complaints. She did have nasal congestion as noted. GASTROINTESTINAL: Denies trouble swallowing. She is not having any reflux at present. She does have some constipation and diarrhea as noted. MUSCULOSKELETAL: She denies myalgias or arthralgias. The remainder of the review of systems is negative except as noted above. PHYSICAL EXAMINATION: VITAL SIGNS: The patient is a 76-year-old female who was cooperative, alert and oriented. She had a loose harsh cough. She did not appear short of breath. Her BMI is only 18.2. Weight is only 39.4 kilograms. HEAD, EYES, EARS, NOSE, AND THROAT: Eye exam showed implants bilaterally. NOSE: Nasal passages were clear. MOUTH: Exam showed teeth in suboptimal repair. NECK: Palpation of the neck reveals no lymph nodes or masses. CHEST: Normal expansion. The cardiac rate was 100 per minute. Blood pressure 131/77. Respiratory rate was 20 breaths per minute. There is harsh rhonchi heard with forced expiration. The breath sounds were diffusely diminished. There was prolongation to the expiratory phase of respiration. Percussion reveals hyperresonance. ABDOMEN: Soft. Bowel sounds were normal. There was no tenderness to palpation, masses, or organomegaly. EXTREMITIES: Showed no cyanosis, clubbing or edema. The patient's chest x-ray done on this date shows emphysema, but with no acute findings. LABORATORY DATA: CBC shows a white count of 12.71. Hemoglobin 12.7. Platelets 246,000. Differential showed 83.8 neutrophils with 12 lymphs. Sodium is 135, potassium 3.9, chloride 100 and bicarbonate 24. BUN was 20 with a creatinine of 0.83. Liver functions were normal. Troponin was normal. Total protein was 7.3. Flu test was negative. Electrocardiogram was done. This showed sinus tachycardia with a rate of 105. The P-waves were prominent. No acute changes were noted. IMPRESSIONS: 1. Chronic obstructive pulmonary disease with exacerbation. 2. Emphysema. 3. Anxiety. COMMENTS AND RECOMMENDATIONS: The patient seems like she is feeling much better. Before she goes home we need to clarify exactly what nebulizer treatments she uses at home. She has not qualified for home oxygen in the past and her saturation here most recently was 92% on room air. She was as low as 88% for a period of time. A 2-step will need to be done before discharge. From a breathing perspective, she is on Tiotropium, doxycycline, prophylactic heparin, methylprednisolone 40 mg IV q. 8, budesonide b.i.d. by nebulizer, DuoNebs q.i.d., and the patient's other baseline medicines. I agree with all of the above. If she has never had Daliresp or if she had Daliresp but tolerated it well consideration might be given to reinitiating this medicine daily to try and help prevent exacerbations. I suspect she has had pulmonary functions as an outpatient, but if she is not these should be done when she is back to baseline. Thank you for asking me to assist in her care.
[2016-06-20 18:55] VITALS: BP 191/96; PULSE 128; TEMP 36.4; O2SAT 91
[2016-06-20 19:20] VITALS: PULSE 100; O2SAT 97
[2016-06-20] MEDS: LORAZEPAM 0.5 MG TAB PO PRN (19:45)
[2016-06-20 20:00] VITALS: BP 155/79
[2016-06-20] MEDS: BUDESONIDE 0.5 MG/2 ML VIAL (PULMICORT) INH SCH (20:05)
[2016-06-20] MEDS: DOXYCYCLINE HYCLATE 100 MG CAP PO SCH (20:07)
[2016-06-20] MEDS: METHYLPREDNISOLONE IV 40 MG in SYRINGE 0 ML IV SCH (20:07)
[2016-06-20] MEDS: TRAZODONE HCL 50 MG TAB PO SCH (20:08)
[2016-06-20] MEDS: POTASSIUM CHLORIDE 10 MEQ TABCR PO SCH (20:08)
[2016-06-20] MEDS: TRAVOPROST Z 0.004% OPH SOLN 2.5 ML BTL OPB SCH (20:10)
[2016-06-20] MEDS: HEPARIN SOD 5000 UNIT/0.5 ML CARP SQ SCH (20:10)
[2016-06-20] MEDS ORDERED: PANTOprazole SOD 40 MG TAB PO STA (20:19)
[2016-06-20] MEDS ORDERED: ENOXAPARIN 40 MG/0.4 ML SYR SC SCH (21:00)
[2016-06-21] VITALS (13 sets, daily range): BP systolic 118–155; BP diastolic 63–82; PULSE 70–118; TEMP 36.7–37; O2SAT 91–97
[2016-06-21] MEDS: METHYLPREDNISOLONE IV 40 MG in SYRINGE 0 ML IV SCH ×3 (03:53→21:48)
[2016-06-21 06:24] LABS: HEMATOCRIT 30.9 % (37-47); MEAN CELL VOLUME 95.7 fL (80-100); MEAN CORPUSCULAR HEMOGLOBIN 33.1 pg (25-34); MEAN CORPUSCULAR HGB CONC 34.6 g/dl (32-36); MEAN PLATELET VOLUME 8.7 fL (7.4-10.4); PLATELET COUNT 226 K/uL (130-400); RED BLOOD COUNT 3.23 M/uL (4.2-5.4); WHITE BLOOD COUNT 9.87 K/uL (4.8-10.8)
[2016-06-21] MEDS: LEVOTHYROXINE 75 MCG TAB PO SCH (06:25)
[2016-06-21 06:54] LABS: BUN/CREATININE RATIO 33.6 (10-20); CALCIUM 8.6 mg/dl (8.5-10.1); CREATININE 0.86 mg/dl (0.60-1.20); MAGNESIUM 2.1 mg/dl (1.8-2.4)
[2016-06-21] MEDS: BUDESONIDE 0.5 MG/2 ML VIAL (PULMICORT) INH SCH ×2 (07:12→19:48)
[2016-06-21] MEDS: ALBUT/IPRATROP 3MG/0.5MG NEB 3 ML VIAL INH SCH ×4 (07:15→19:48)
[2016-06-21] MEDS: POTASSIUM CHLORIDE 10 MEQ TABCR PO SCH ×2 (08:10→21:25)
[2016-06-21] MEDS: AMLODIPINE BESYLATE 5 MG TAB PO SCH (08:10)
[2016-06-21] MEDS: SODIUM CHLORIDE 1 GM TAB PO SCH ×3 (08:10→21:26)
[2016-06-21] MEDS: PANTOprazole SOD 40 MG TAB PO SCH (08:10)
[2016-06-21] MEDS: HEPARIN SOD 5000 UNIT/0.5 ML CARP SQ SCH ×2 (08:11→21:00)
[2016-06-21] MEDS: LIDODERM (LIDOCAINE) PATCH 5% TD SCH (08:11)
[2016-06-21] MEDS: DOXYCYCLINE HYCLATE 100 MG CAP PO SCH ×2 (08:12→21:26)
[2016-06-21] MEDS: TIOTROPIUM BROMIDE 5 PUFF/90 MCG INH INH SCH (08:13)
[2016-06-21] MEDS: FLUTICASONE PROPIONATE NA SPR 16 GM BTL NAE SCH (08:13)
[2016-06-21] MEDS: LORAZEPAM 0.5 MG TAB PO PRN ×2 (08:16→18:43)
--- NOTE | 2016-06-21 10:56 | Pulmonology Progress Note ---
Pulmonary Progress Note Date of Service Jun 21, 2016. Attending Dr. Casas Subjective Feeling somewhat improved today with regard to cough. Has been ambulating the hallway with assistance but limited by dyspnea and hypoxia ("80s"). Cough yesterday productive of green sputum - no productivity yet today. Denies associated chest pain or GI symptoms. Reports chronic sinus symptoms with bloody rhinorrhea intermittently bothersome since the 1960s. Objective 76-yo female admitted to [facility] 06/20/16 with exacerbation of COPD/emphysema: PMHx includes: SIADH, hyponatremia, glaucoma, hypothyroid, ACOS/Emphysema (PFT FEV1: 0.64/35%-10% change, FEV1/FVC: 41), h/o pneumonia with sputum + MSSA (2014), allergic rhinitis, anxiety, chronic sinusitis and hypertension. She is a current smoker formally smoking 3 ppd x 30-years (current 1-ppd). Patient is followed in the office for severe COPD/pulmonary emphysema. She is quite symptomatic of dyspnea limiting to her ADLs with h/o increased episodes of exacerbation. Recently, her Advair was replaced with BID Brovana + budesonide secondary to inability to use her inhaler successfully. She is currently prescribed 10mg daily prednisone ([employer] had been on steroid taper with symptoms returning on 20mg dose) and M, W, F azithromycin. She has declined pulmonary rehab and smoking cessation in the past secondary to anxiety. Patient admitted through the [facility] Er 06/20/16 with 3-day h/o progressive dyspnea and cough productive of green sputum. CXR 06/20/16: + emphysema without acute infiltrate or process. Influenza: Neg. She was treated with 1x ceftriaxone then doxyxycline (day #2), IV steriod and scheduled bronchodilators. Today: - O2: 92-93% RA - at rest - Afebrile, HD stable - WBC/Hgb/Hct/Plts: 9.87/10.7/30.9/226 - CO2: 24 Physical Exam: Constitutional: Well developed, thin elderly female. Resting quielty in hospital bed. No acute distress. Head: + facial symmetry Eyes: EOMi, PERRLA, no conjunctival injection Mouth: Mallampati [III]. Poor dentition. No erythema, exudate, or post nasal gtt Neck: Trachea midline. No adenopathy or masses Respiratory: Non-labored respirations. Very diminished throughout. Scattered crackles bialteral bases with bronchial breath sounds anteriorly. No wheeze. Loose cough. No clubbing or cyanosis. Cardiovascular: Rapid rate, regular rhythm, no MRG. +2 radial pulses. <1s capillary refill. Integumentary: no rashes, or ecchymosis MSK/Extremities: Moving and developed symmetrically. Mild kyphosis No peripheral edema. No calf tenderness. Neurologic: A&O, data recall in-tact. Appropriate affect. Assessment & Plan 76-yo female hospital day #2 admitted with COPD exacerbation. She is improving clinically on current treatment plan: 1. Continue IV steroid and then wean to [id number] dosing tomorrow 2. Continue nebulized bronchodilators and INH steroid as prescribed 3. Add low-flow flutter valve to aid in expectoration - order placed 4. Sputum culture: pending 5. In the future will need a very slow PO taper with h/o steroid dependence and potentially ENT consult for chronic sinusitis. Data Medications: Current Inpatient Medications Medications (Trade) Dose Ordered Sig/Jhon Route Start Time Stop Time Status Last Admin Dose Admin Acetaminophen (Tylenol Tab) 650 mg Q4H PRN PO 06/20/16 14:00 07/20/16 13:59 Ondansetron HCl (Zofran Inj) 4 mg Q6H PRN IV 06/20/16 14:00 07/20/16 13:59 Doxycycline Hyclate (Vibramycin Cap) 100 mg BID PO 06/20/16 21:00 06/27/16 20:59 06/21/16 08:12 100 MG Albuterol/ Ipratropium 3 ml 3 ml QIDR INH 06/20/16 16:00 07/20/16 15:59 06/21/16 07:15 3 ML Methylprednisolone Sodium Succinate/ Syringe (Solu-Medrol IV/ Syringe) 0.64 ml @ 1.5 mls/min Q8H IV 06/20/16 20:00 07/20/16 19:59 06/21/16 03:53 1.5 MLS/MIN Amlodipine Besylate (Norvasc Tab) 2.5 mg DAILY PO 06/21/16 09:00 07/21/16 08:59 06/21/16 08:10 2.5 MG Budesonide (Pulmicort Respules 0.5MG/ 2ML Neb Soln) 1 mg BIDR INH 06/20/16 20:00 07/20/16 19:59 06/21/16 07:12 1 MG Fluticasone Propionate (Flonase Nasal [place]) 2 sprays DAILY NADIA 06/21/16 09:00 07/21/16 08:59 06/21/16 08:13 2 SPRAYS Lactulose (Chronulac Syrup) 10 gm BID PRN PO 06/20/16 14:00 07/20/16 13:59 Levothyroxine Sodium (Synthroid Tab) 75 mcg DAILYBB PO 06/21/16 06:00 07/21/16 06:59 06/21/16 06:25 75 MCG Lidocaine (Lidoderm Patch 5%) 1 patch DAILY@0900 TD 06/21/16 09:00 07/21/16 08:59 06/21/16 08:11 1 PATCH Lorazepam (Ativan Tab) 0.5 mg TID PRN PO 06/20/16 14:00 07/20/16 13:59 06/21/16 08:16 0.5 MG Potassium Chloride (Klor-Con M10) 10 meq BID PO 06/20/16 21:00 07/20/16 20:59 06/21/16 08:10 10 MEQ Sodium Chloride (Sodium Chloride Tab) 1 gm TID PO 06/20/16 14:00 07/20/16 13:59 06/21/16 08:10 1 GM Tiotropium [place] (Spiriva Handihaler Inhaler) 1 puff QAM INH 06/21/16 09:00 07/21/16 08:59 06/21/16 08:13 1 PUFF Travoprost (Travatan Z) 1 drops HS OPB 06/20/16 21:00 07/20/16 20:59 06/20/16 20:10 1 DROPS Trazodone HCl (Desyrel Tab) 50 mg HS PO 06/20/16 21:00 07/20/16 20:59 06/20/16 20:08 50 MG Miscellaneous (Remove Lidoderm Patch) 1 ea DAILY@21 N/A 06/20/16 21:00 07/20/16 20:59 Heparin Sodium (Porcine) (Heparin Sq 5000 Unit/0.5ml) 5,000 unit Q12 SQ 06/20/16 21:00 07/20/16 20:59 Pantoprazole Sodium (Protonix Tab) 40 mg QAM PO 06/21/16 09:00 07/21/16 08:59 06/21/16 08:10 40 MG I & O: 24-Hour Column 06/21/16 07:59 Intake Total 120 ml Balance 120 ml Vital Signs: Date Time Temp Pulse Resp B/P Pulse Ox O2 Delivery O2 Flow Rate FiO2 06/21/16 07:53 36.9 94 16 133/71 92 Room Air 06/21/16 07:15 78 12 94 Room Air 06/21/16 04:00 93 06/21/16 03:24 36.9 91 18 123/63 93 Room Air 06/21/16 00:00 93 Nasal Cannula 2.0 06/21/16 00:00 36.9 101 147/73 93 Nasal Cannula 2.0 06/20/16 20:00 155/79 06/20/16 20:00 Nasal Cannula 2.0 06/20/16 19:20 100 18 97 Nasal Cannula 2.0 06/20/16 18:55 36.4 128 22 191/96 91 Room Air 06/20/16 16:03 Room Air 06/20/16 15:38 99 16 92 Room Air 06/20/16 15:23 36.5 100 18 131/77 94 Room Air 06/20/16 14:11 92 22 154/81 98 06/20/16 13:29 88 Room Air 06/20/16 13:28 100 22 143/87 93 Room Air 06/20/16 13:25 98 Room Air 06/20/16 12:09 104 06/20/16 11:41 95 Room Air 06/20/16 11:35 36.7 116 24 174/98 95 Room Air 06/20/16 11:35 95 Room Air Laboratory Results: Last 24 Hours Test 06/20/16 12:00 06/20/16 12:15 06/21/16 06:10 White Blood Count 12.71 K/uL 9.87 K/uL Red Blood Count 3.77 M/uL 3.23 M/uL Hemoglobin 12.7 g/dL 10.7 g/dL Hematocrit 36.1 % 30.9 % Mean Corpuscular Volume 95.8 fL 95.7 fL Mean Corpuscular Hemoglobin 33.7 pg 33.1 pg Mean Corpuscular Hemoglobin Concent 35.2 g/dl 34.6 g/dl Platelet Count 246 K/uL 226 K/uL Mean Platelet Volume 8.9 fL 8.7 fL Neutrophils (%) (Auto) 83.8 % Lymphocytes (%) (Auto) 12.0 % Monocytes (%) (Auto) 2.7 % Eosinophils (%) (Auto) 0.1 % Basophils (%) (Auto) 0.1 % Neutrophils # (Auto) 10.67 K/uL Lymphocytes # (Auto) 1.52 K/uL Monocytes # (Auto) 0.34 K/uL Eosinophils # (Auto) 0.01 K/uL Basophils # (Auto) 0.01 K/uL RDW Standard Deviation 50.1 fL 49.2 fL RDW Coefficient of Variation 14.4 % 14.2 % Immature Granulocyte % (Auto) 1.3 % Immature Granulocyte # (Auto) 0.16 K/uL Sodium Level 135 mmol/L 135 mmol/L Potassium Level 3.9 mmol/L 4.0 mmol/L Chloride Level 100 mmol/L 102 mmol/L Carbon Dioxide Level 24 mmol/L 22 mmol/L Anion Gap 11.0 mmol/L 11.0 mmol/L Blood Urea Nitrogen 20 mg/dl 29 mg/dl Creatinine 0.83 mg/dl 0.86 mg/dl Est Creatinine Clear Calc Drug Dose 37.0 ml/min 30.9 ml/min Estimated GFR () 80.5 77.1 Estimated GFR (Non- 69.5 66.6 BUN/Creatinine Ratio 23.8 33.6 Random Glucose 132 mg/dl 111 mg/dl Calcium Level 9.2 mg/dl 8.6 mg/dl Magnesium Level 2.1 mg/dl 2.1 mg/dl Total Bilirubin 0.5 mg/dl Aspartate Amino Transf (AST/SGOT) 15 U/L Alanine Aminotransferase (ALT/SGPT) 25 U/L Alkaline Phosphatase 91 U/L Troponin I < 0.015 ng/ml Total Protein 7.3 gm/dl Albumin 3.5 gm/dl Globulin 3.8 gm/dl Albumin/Globulin Ratio 0.9 Influenza Type A (RT-PCR) Neg for Influ A Influenza Type B (RT-PCR) Neg for Influ B Nucleated RBC Absolute Count (auto) 0.02 K/uL Nucleated Red Blood Cells % 0.2 %
--- NOTE | 2016-06-21 16:33 | Progress Note ---
Internal Med Progress Note Date of Service: Jun 21, 2016. Provider Documentation: SUBJECTIVE: SOB has much improved has non productive cough no fever or chills OBJECTIVE: Vital Signs-as noted below Exam: General-no sign of distress , pleasant Eyes-sclera non icteric ENT-NAD Neck-no thyromegaly Lungs-diminished , scattered wheeze Heart-regular S1/S2 Abdomen-soft, non tender Extremities-no lower ext edema Neuro-no focal neurological deficit Lab data as noted below. ASSESSMENT & PLAN: ACUTE EXACERBATION OF COPD -Likely secondary to acute bronchitis, CXR negative for acute changes, flu swab negative started on IV Solu-Medrol 40 q8h -Empirically treat for infection with Doxycycline -Duonebs scheduled and prn -Continue Spiriva, Pulmicort -pulmonology consulted , appreciate input HYPOTHYROIDISM -continue Synthroid HTN -continue Amlodipine - ANXIETY - continue Ativan prn SIADH -Sodium 135 today -continue Sodium Tablets AAA -2.6 cm on 04/2015 CHRONIC BACK PAIN -continue lidocaine patch INSOMNIA -continue Trazodone RECENT TOBACCO CESSATION -quit approximately one month ago, applauded efforts -40+ pack year history DVT PROPHYLAXIS: Sq heparin CODE STATUS: FULL CODE DISPOSITION Discharge home when medically stable Vital Signs: Date Time Temp Pulse Resp B/P Pulse Ox O2 Delivery O2 Flow Rate FiO2 06/21/16 18:49 117 28 155/82 94 Room Air 06/21/16 16:38 36.7 118 16 118/69 91 Room Air 06/21/16 16:06 36.9 75 16 96 2.0 06/21/16 15:21 75 16 96 Room Air 06/21/16 15:10 36.9 99 22 128/70 92 Room Air 06/21/16 12:00 Room Air 06/21/16 11:56 37.0 118 24 121/68 93 Room Air 06/21/16 11:22 71 12 95 Room Air 06/21/16 08:00 Room Air 06/21/16 07:53 36.9 94 16 133/71 92 Room Air 06/21/16 07:15 78 12 94 Room Air 06/21/16 04:00 93 06/21/16 03:24 36.9 91 18 123/63 93 Room Air 06/21/16 00:00 93 Nasal Cannula 2.0 06/21/16 00:00 36.9 101 147/73 93 Nasal Cannula 2.0 06/20/16 20:00 155/79 06/20/16 20:00 Nasal Cannula 2.0 06/20/16 19:20 100 18 97 Nasal Cannula 2.0 Lab Results: Results Past 24 Hours Test 06/21/16 06:10 Range/Units White Blood Count 9.87 4.8-10.8 K/uL Red Blood Count 3.23 4.2-5.4 M/uL Hemoglobin 10.7 12.0-16.0 g/dL Hematocrit 30.9 37-47 % Mean Corpuscular Volume 95.7 80-100 fL Mean Corpuscular Hemoglobin 33.1 25-34 pg Mean Corpuscular Hemoglobin Concent 34.6 32-36 g/dl RDW Standard Deviation 49.2 36.4-46.3 fL RDW Coefficient of Variation 14.2 11.5-14.5 % Platelet Count 226 130-400 K/uL Mean Platelet Volume 8.7 7.4-10.4 fL Nucleated RBC Absolute Count (auto) 0.02 0-0 K/uL Nucleated Red Blood Cells % 0.2 % Sodium Level 135 136-145 mmol/L Potassium Level 4.0 3.5-5.1 mmol/L Chloride Level 102 98-107 mmol/L Carbon Dioxide Level 22 21-32 mmol/L Anion Gap 11.0 3-11 mmol/L Blood Urea Nitrogen 29 7-18 mg/dl Creatinine 0.86 0.60-1.20 mg/dl Est Creatinine Clear Calc Drug Dose 30.9 ml/min Estimated GFR () 77.1 Estimated GFR (Non- 66.6 BUN/Creatinine Ratio 33.6 10-20 Random Glucose 111 70-99 mg/dl Calcium Level 8.6 8.5-10.1 mg/dl Magnesium Level 2.1 1.8-2.4 mg/dl
--- NOTE | 2016-06-21 19:10 | Discharge Instructions ---
Discharge Instructions Date of Service Jun 21, 2016. Admission Reason for Admission: Acute Bronchitis; Copd; Respiratory Distress Discharge Discharge Diagnosis / Problem: COPD EXACERBATION Discharge Goals Goal(s): Improve disease control, Diagnostic testing, Therapeutic intervention Activity Recommendations Activity Limitations: resume your previous activity . Instructions / Follow-Up Instructions / Follow-Up HOSPITAL FOLLOW UP WITH DR SHIN ON Saturday06/28/16 @ 11: 10 AM PULMONOLOGY FOLLOWUP WITH GEMA KENNEY PA-C , PLEASE CALL OFFICE FOR APPOINTMENT Current Hospital Diet Patient's current hospital diet: AHA Diet (Heart Healthy) Discharge Diet Recommended Diet: AHA Diet (Heart Healthy) Pending Studies Studies pending at discharge: no Medical Emergencies . Who to Call and When: Medical Emergencies: If at any time you feel your situation is an emergency, please call 911 immediately. . Non-Emergent Contact Non-Emergency issues call your: Primary Care Provider . . "Provider Documentation" section prepared by Mechelle Melton. VTE Core Measure Inpt VTE Proph given/why not?: Unfractionated heparin SQ
[2016-06-21] MEDS: TRAZODONE HCL 50 MG TAB PO SCH (21:00)
[2016-06-21] MEDS: TRAVOPROST Z 0.004% OPH SOLN 2.5 ML BTL OPB SCH (21:24)
[2016-06-22] VITALS (10 sets, daily range): BP systolic 122–166; BP diastolic 69–84; PULSE 97–112; TEMP 36.6–36.9; O2SAT 90–97
[2016-06-22] MEDS: LEVOTHYROXINE 75 MCG TAB PO SCH (04:17)
[2016-06-22] MEDS: METHYLPREDNISOLONE IV 40 MG in SYRINGE 0 ML IV SCH (04:17)
[2016-06-22] MEDS: LORAZEPAM 0.5 MG TAB PO PRN ×3 (04:17→19:25)
[2016-06-22] MEDS: BUDESONIDE 0.5 MG/2 ML VIAL (PULMICORT) INH SCH ×2 (07:18→19:50)
[2016-06-22] MEDS: ALBUT/IPRATROP 3MG/0.5MG NEB 3 ML VIAL INH SCH ×4 (07:18→19:50)
[2016-06-22] MEDS: LIDODERM (LIDOCAINE) PATCH 5% TD SCH (09:00)
[2016-06-22] MEDS: HEPARIN SOD 5000 UNIT/0.5 ML CARP SQ SCH ×2 (09:00→20:49)
[2016-06-22] MEDS: DOXYCYCLINE HYCLATE 100 MG CAP PO SCH ×2 (09:05→20:48)
[2016-06-22] MEDS: SODIUM CHLORIDE 1 GM TAB PO SCH ×3 (09:06→20:48)
[2016-06-22] MEDS: POTASSIUM CHLORIDE 10 MEQ TABCR PO SCH ×2 (09:06→20:48)
[2016-06-22] MEDS: PANTOprazole SOD 40 MG TAB PO SCH (09:07)
[2016-06-22] MEDS: AMLODIPINE BESYLATE 5 MG TAB PO SCH (09:08)
[2016-06-22] MEDS: TIOTROPIUM BROMIDE 5 PUFF/90 MCG INH INH SCH (09:09)
[2016-06-22] MEDS: FLUTICASONE PROPIONATE NA SPR 16 GM BTL NAE SCH (09:09)
--- NOTE | 2016-06-22 10:41 | PULMONARY PROGRESS NOTE ---
DATE: 06/22/2016 TIME: 10:05 a.m. SUBJECTIVE: The patient is very tired. She states that she has not been sleeping well at all. She states that the night before last, she did not sleep at all and last night, she did not fall asleep until 5 a.m. She does have some insomnia at home, but it is always much worse when she is in the hospital. She describes having severe anxiety that seems to start about 07:00 p.m. She states she is not too bed during the day. She is still short of breath, but it is a little better. She states she recovers more quickly. She did walk the halls somewhat yesterday. She has a cough, which is mild. She is not expectorating any phlegm. She complains of some vague right-sided chest pain that seems to occur when she is exerting herself. I could not find evidence of an EKG since she was in the hospital. The pain seems to be predominantly on the right side, however. OBJECTIVE: GENERAL: The patient was lethargic. She feels weak. Temperature is 36.8. EARS, NOSE, AND THROAT: Exam is unremarkable. HEART: Rate was 97 per minute. The rhythm was regular. Blood pressure 159/75. LUNGS: Lung crenshaw revealed very diminished breath sounds bilaterally. No active wheezing was heard. There was prolongation to the expiratory phase of respiration. Saturation was 97% on room air. ABDOMEN: Soft and nontender. EXTREMITIES: Showed no edema. The patient did not have any lab work today. IMPRESSIONS: 1. Chronic obstructive pulmonary disease with exacerbation. 2. Emphysema. COMMENTS AND RECOMMENDATIONS: I again spoke with the patient about what nebulizer solutions and inhaler she has. Renata López's notes indicate that the patient was started on Brovana and budesonide at home. The patient is very vague on this. I have asked her to call her daughter and asked her to bring in the names of all of her inhalers and nebulizers, so we can see what she actually has and then can make recommendations when she is discharged. She clinically does seem to be improved. For now, she is on Spiriva 1 daily, doxycycline b.i.d., methylprednisolone 40 mg IV q. 8 hours, budesonide b.i.d. by nebulizer and DuoNeb q.i.d. I believe the steroids can be significantly decreased and then transitioned over to oral. I spoke with the patient about pulmonary rehabilitation. Renata Garcia PA-C, had spoken with her about this on multiple occasions in the past. The patient seems reticent to do this. I think she is anxious about it. I tried to reassure her how good the rehab might be for her.
[2016-06-22] MEDS: METHYLPREDNISOLONE IV 20 MG in SYRINGE 0 ML IV SCH (20:46)
[2016-06-22] MEDS: TRAVOPROST Z 0.004% OPH SOLN 2.5 ML BTL OPB SCH (20:47)
[2016-06-22] MEDS: TRAZODONE HCL 50 MG TAB PO SCH (20:50)
[2016-06-22] MEDS ORDERED: NURSING DECISION MEDICATION ORDER SCH (21:00)
[2016-06-22] MEDS ORDERED: SODIUM CHLORIDE 0.65% NA SOLN 45 ML (OCEAN) PRN (21:00)
--- NOTE | 2016-06-22 21:55 | Progress Note ---
Internal Med Progress Note Date of Service: Jun 22, 2016. Provider Documentation: SUBJECTIVE: breathing much better today has persistent post nasal drip no fever or chills OBJECTIVE: Vital Signs-as noted below Exam: General-no sign of distress , pleasant Eyes-sclera non icteric ENT-NAD Neck-no thyromegaly Lungs-improved air entry , minimum wheeze Heart-regular S1/S2 Abdomen-soft, non tender Extremities-no lower ext edema Neuro-no focal neurological deficit Lab data as noted below. ASSESSMENT & PLAN: ACUTE EXACERBATION OF COPD respiratory status improving -Likely secondary to acute bronchitis, CXR negative for acute changes, flu swab negative wean down IV Solu-Medrol possible transition to PO Prednisone in next 24-48 hrs will need prolong taper -Empirically treat for infection with Doxycycline -on Duonebs -Continue Spiriva, Pulmicort -pulmonology consulted , appreciate input HYPOTHYROIDISM -continue Synthroid HTN -continue Amlodipine - ANXIETY - continue Ativan prn SIADH -Sodium 135 today -continue Sodium Tablets AAA -2.6 cm on 04/2015 CHRONIC BACK PAIN -continue lidocaine patch INSOMNIA -continue Trazodone RECENT TOBACCO CESSATION -quit approximately one month ago, applauded efforts -40+ pack year history DVT PROPHYLAXIS: Sq heparin CODE STATUS: FULL CODE DISPOSITION Discharge home in next 1-2 days Vital Signs: Date Time Temp Pulse Resp B/P Pulse Ox O2 Delivery O2 Flow Rate FiO2 06/22/16 19:51 110 16 94 Room Air 06/22/16 16:00 94 Room Air 06/22/16 15:31 98 16 95 Room Air 06/22/16 14:34 36.6 112 18 166/84 94 Room Air 06/22/16 11:00 100 16 95 Room Air 06/22/16 08:00 Nasal Cannula 2.0 06/22/16 07:18 97 16 97 Room Air 06/22/16 07:16 36.8 98 16 159/75 92 Room Air 06/22/16 00:19 36.9 97 18 130/69 90 Room Air 06/22/16 00:00 Room Air Lab Results: Microbiology Results 06/22/16 Gram Stain - Final, Resulted 06/22/16 Sputum Culture, Resulted Pending
[2016-06-23] VITALS (8 sets, daily range): BP systolic 130–159; BP diastolic 61–83; PULSE 72–103; TEMP 36.5–36.9; O2SAT 93–98
[2016-06-23] MEDS: LORAZEPAM 0.5 MG TAB PO PRN ×2 (04:13→13:37)
[2016-06-23] MEDS: LEVOTHYROXINE 75 MCG TAB PO SCH (04:14)
[2016-06-23] MEDS: BUDESONIDE 0.5 MG/2 ML VIAL (PULMICORT) INH SCH ×2 (07:15→19:46)
[2016-06-23] MEDS: ALBUT/IPRATROP 3MG/0.5MG NEB 3 ML VIAL INH SCH ×4 (07:15→19:46)
[2016-06-23] MEDS: SODIUM CHLORIDE 1 GM TAB PO SCH ×3 (08:01→20:40)
[2016-06-23] MEDS: METHYLPREDNISOLONE IV 20 MG in SYRINGE 0 ML IV SCH (08:01)
[2016-06-23] MEDS: DOXYCYCLINE HYCLATE 100 MG CAP PO SCH ×2 (08:01→20:40)
[2016-06-23] MEDS: PANTOprazole SOD 40 MG TAB PO SCH (08:01)
[2016-06-23] MEDS: FLUTICASONE PROPIONATE NA SPR 16 GM BTL NAE SCH (08:02)
[2016-06-23] MEDS: POTASSIUM CHLORIDE 10 MEQ TABCR PO SCH ×2 (08:02→20:40)
[2016-06-23] MEDS: LIDODERM (LIDOCAINE) PATCH 5% TD SCH (08:03)
[2016-06-23] MEDS: HEPARIN SOD 5000 UNIT/0.5 ML CARP SQ SCH ×2 (08:03→18:40)
[2016-06-23] MEDS: TIOTROPIUM BROMIDE 5 PUFF/90 MCG INH INH SCH (08:04)
[2016-06-23] MEDS: AMLODIPINE BESYLATE 5 MG TAB PO SCH (08:04)
--- NOTE | 2016-06-23 11:55 | PULMONARY PROGRESS NOTE ---
DATE: 06/23/2016 TIME: 10:55 a.m. SUBJECTIVE: The patient is still sleepy this morning. She states she did sleep well until she awakened about 4:00 a.m. She then felt short of breath and anxious. Apparently, they gave one of her nerve pills and she went back to sleep. She denies that she has had significant shortness of breath otherwise. She thinks it was just her anxiety. She has a slight cough. She did bring up some phlegm. She states the phlegm is getting chart changer in color. She denies chills, fevers or sweats. OBJECTIVE: GENERAL: The patient was sleeping when I came in. She aroused easily. She is oriented. VITAL SIGNS: Temperature is 36.5. Heart rate is 90 beats per minute. Blood pressure 149/70. Oxygen saturation is 98% on room air. CHEST: Respiratory rate 20 breaths per minute. The breath sounds were diffusely diminished. No wheezes, rales or rhonchi were heard. There was prolongation to the expiratory phase of respiration. ABDOMEN: Soft and nontender. EXTREMITIES: No edema was noted. LABORATORY DATA: The patient did not have any labs today. IMPRESSIONS: 1. Chronic obstructive pulmonary disease with exacerbation. 2. Emphysema. COMMENTS AND RECOMMENDATIONS: The patient's daughter brought in the patient's nebulizer medicines which had been in question. She has levalbuterol which is to be taken 4 times a day. She has ipratropium, which is to be taken 4 times a day. She also had the DuoNeb combination of albuterol and ipratropium. She also has budesonide, which she is to take twice a day. I have suggested to her that she not use the albuterol/ipratropium combination. Her heart rates tend to run a little on the high side. I believe she would be best using the levalbuterol 4 times per day with ipratropium at the same time. She then should do the budesonide twice a day. The patient seems to understand those instructions and that is how I believe it should be ordered. I told her I did not think she should use the regular DuoNebs unless she was running out of medicines. I would change her steroids to oral. As discussed with Dr. Melton, I have no objection to her being discharged tomorrow with oral prednisone if she is stable. I would not taper it below 20 mg. That is where she had been prior to admission. She could follow up with Renata Garcia PA-C and Renata could then work on decreasing the dose of her prednisone as an outpatient.
[2016-06-23] MEDS: TRAZODONE HCL 50 MG TAB PO SCH (20:40)
[2016-06-23] MEDS: TRAVOPROST Z 0.004% OPH SOLN 2.5 ML BTL OPB SCH (20:41)
--- NOTE | 2016-06-23 21:36 | Progress Note ---
Internal Med Progress Note Date of Service: Jun 23, 2016. Provider Documentation: SUBJECTIVE: breathing has improved minimum cough no fever or chills OBJECTIVE: Vital Signs-as noted below Exam: General-no sign of distress , pleasant Eyes-sclera non icteric ENT-NAD Neck-no thyromegaly Lungs-improved air entry , minimum wheeze Heart-regular S1/S2 Abdomen-soft, non tender Extremities-no lower ext edema Neuro-no focal neurological deficit Lab data as noted below. ASSESSMENT & PLAN: ACUTE EXACERBATION OF COPD respiratory status improving -Likely secondary to acute bronchitis, CXR negative for acute changes, flu swab negative transitioned to PO Prednisone will need prolong taper -pt will continued with PO Prednisone 20 mg PO Daily till evaluated by Pulmonology in office -Empirically treat for infection with Doxycycline -on Duonebs PRN -Continue Spiriva, Pulmicort -pulmonology consulted , appreciate input HYPOTHYROIDISM -continue Synthroid HTN -continue Amlodipine - ANXIETY - continue Ativan prn SIADH -Sodium 135 today -continue Sodium Tablets AAA -2.6 cm on 04/2015 CHRONIC BACK PAIN -continue lidocaine patch INSOMNIA -continue Trazodone RECENT TOBACCO CESSATION -quit approximately one month ago, applauded efforts -40+ pack year history DVT PROPHYLAXIS: Sq heparin CODE STATUS: FULL CODE DISPOSITION Possible Discharge home tomorrow Vital Signs: Date Time Temp Pulse Resp B/P Pulse Ox O2 Delivery O2 Flow Rate FiO2 06/23/16 19:47 81 14 97 Nasal Cannula 2.0 06/23/16 18:00 94 Nasal Cannula 2.0 06/23/16 15:14 36.9 96 20 159/83 94 06/23/16 15:05 84 16 98 Nasal Cannula 2.0 06/23/16 11:30 72 16 94 Nasal Cannula 2.0 06/23/16 08:00 Room Air 06/23/16 07:33 36.5 91 20 149/70 98 06/23/16 07:15 72 16 96 Room Air 06/22/16 23:50 94 Room Air 06/22/16 23:44 36.6 98 18 122/72 92 Room Air
[2016-06-24] VITALS (7 sets, daily range): BP systolic 127–166; BP diastolic 77–85; PULSE 84–108; TEMP 36.6–36.7; O2SAT 92–96
[2016-06-24] MEDS: LORAZEPAM 0.5 MG TAB PO PRN ×3 (03:45→19:21)
[2016-06-24] MEDS: LEVOTHYROXINE 75 MCG TAB PO SCH (06:25)
[2016-06-24 07:30] LABS: HEMATOCRIT 30.1 % (37-47); MEAN CELL VOLUME 94.4 fL (80-100); MEAN CORPUSCULAR HEMOGLOBIN 32.6 pg (25-34); MEAN CORPUSCULAR HGB CONC 34.6 g/dl (32-36); MEAN PLATELET VOLUME 8.7 fL (7.4-10.4); PLATELET COUNT 193 K/uL (130-400); RED BLOOD COUNT 3.19 M/uL (4.2-5.4)
[2016-06-24] MEDS: BUDESONIDE 0.5 MG/2 ML VIAL (PULMICORT) INH SCH ×2 (07:30→20:03)
[2016-06-24] MEDS: ALBUT/IPRATROP 3MG/0.5MG NEB 3 ML VIAL INH SCH ×4 (07:30→20:03)
[2016-06-24] MEDS ORDERED: DXY100 PO (07:50)
[2016-06-24] MEDS ORDERED: PRD20 PO (07:50)
[2016-06-24] MEDS: HEPARIN SOD 5000 UNIT/0.5 ML CARP SQ SCH ×2 (09:00→20:29)
[2016-06-24] MEDS: TIOTROPIUM BROMIDE 5 PUFF/90 MCG INH INH SCH (09:10)
[2016-06-24] MEDS: FLUTICASONE PROPIONATE NA SPR 16 GM BTL NAE SCH (09:10)
[2016-06-24] MEDS: LIDODERM (LIDOCAINE) PATCH 5% TD SCH (09:11)
[2016-06-24] MEDS: AMLODIPINE BESYLATE 5 MG TAB PO SCH (09:13)
[2016-06-24] MEDS: PANTOprazole SOD 40 MG TAB PO SCH (09:14)
[2016-06-24] MEDS: SODIUM CHLORIDE 1 GM TAB PO SCH ×3 (09:14→20:29)
[2016-06-24] MEDS: POTASSIUM CHLORIDE 10 MEQ TABCR PO SCH ×2 (09:14→20:30)
[2016-06-24] MEDS: DOXYCYCLINE HYCLATE 100 MG CAP PO SCH ×2 (09:14→20:29)
[2016-06-24] MEDS ORDERED: NURSING VERBAL MED ORDER ONE (18:00)
[2016-06-24] MEDS: METHYLPREDNISOLONE IV 30 MG in SYRINGE 0 ML IV SCH (18:16)
--- NOTE | 2016-06-24 18:23 | Progress Note ---
Internal Med Progress Note Date of Service: Jun 24, 2016. Provider Documentation: SUBJECTIVE: having more SOB , wheeze today side hurts when trying to take breath very anxious pt started on PO prednisone 24 hrs back will start on Iv Solu Medrol cont to monitor OBJECTIVE: Vital Signs-as noted below Exam: General-no sign of distress , anxious Eyes-sclera non icteric ENT-NAD Neck-no thyromegaly Lungs-very poor air entry , +wheeze Heart-regular S1/S2 Abdomen-soft, non tender Extremities-no lower ext edema Neuro-no focal neurological deficit Lab data as noted below. ASSESSMENT & PLAN: ACUTE EXACERBATION OF COPD respiratory status worsen today - will D/C PO prednisone started on IV Solumedrol 30 mg IV BID will need slow prolong taper -pt will continued with PO Prednisone 20 mg PO Daily till evaluated by Pulmonology in office -Empirically treat for infection with Doxycycline -on Duonebs PRN -Continue Spiriva, Pulmicort -pulmonology consulted , appreciate input HYPOTHYROIDISM -continue Synthroid HTN -continue Amlodipine - ANXIETY - continue Ativan prn SIADH -Sodium 135 today -continue Sodium Tablets AAA -2.6 cm on 04/2015 CHRONIC BACK PAIN -continue lidocaine patch INSOMNIA -continue Trazodone RECENT TOBACCO CESSATION -quit approximately one month ago, applauded efforts -40+ pack year history DVT PROPHYLAXIS: Sq heparin CODE STATUS: FULL CODE Discharge home when medically stable medicine follow up with Dr Forman on 06/28 @ 11: 10 am Vital Signs: Date Time Temp Pulse Resp B/P Pulse Ox O2 Delivery O2 Flow Rate FiO2 06/25/16 19:10 97 16 98 Nasal Cannula 2.0 06/25/16 16:40 Nasal Cannula 2.0 06/25/16 15:13 100 16 98 Nasal Cannula 2.0 06/25/16 14:56 36.6 98 18 127/83 90 Room Air 06/25/16 11:10 114 16 96 Room Air 06/25/16 08:00 98 Nasal Cannula 2.0 06/25/16 07:08 36.7 85 16 157/80 98 2.0 06/25/16 07:01 76 12 98 Room Air 06/24/16 23:59 Nasal Cannula 2.0 06/24/16 23:06 36.6 96 18 166/85 96 Nasal Cannula 4.0 Lab Results:
[2016-06-24] MEDS: TRAZODONE HCL 50 MG TAB PO SCH (20:29)
[2016-06-24] MEDS: TRAVOPROST Z 0.004% OPH SOLN 2.5 ML BTL OPB SCH (20:30)
[2016-06-24] MEDS: MELATONIN 3 MG TAB PO SCH (21:00)
[2016-06-25] VITALS (7 sets, daily range): BP systolic 127–157; BP diastolic 80–83; PULSE 76–114; TEMP 36.6–36.7; O2SAT 90–98
[2016-06-25] MEDS: LORAZEPAM 0.5 MG TAB PO PRN ×3 (04:31→18:36)
[2016-06-25] MEDS: METHYLPREDNISOLONE IV 30 MG in SYRINGE 0 ML IV SCH ×2 (06:20→18:33)
[2016-06-25] MEDS: LEVOTHYROXINE 75 MCG TAB PO SCH (06:21)
[2016-06-25] MEDS: ALBUT/IPRATROP 3MG/0.5MG NEB 3 ML VIAL INH SCH ×4 (06:59→19:10)
[2016-06-25] MEDS: BUDESONIDE 0.5 MG/2 ML VIAL (PULMICORT) INH SCH ×2 (06:59→19:10)
[2016-06-25] MEDS: DOXYCYCLINE HYCLATE 100 MG CAP PO SCH ×2 (07:44→20:49)
[2016-06-25] MEDS: PANTOprazole SOD 40 MG TAB PO SCH (07:44)
[2016-06-25] MEDS: SODIUM CHLORIDE 1 GM TAB PO SCH ×3 (07:44→20:50)
[2016-06-25] MEDS: AMLODIPINE BESYLATE 5 MG TAB PO SCH (07:44)
[2016-06-25] MEDS: POTASSIUM CHLORIDE 10 MEQ TABCR PO SCH ×2 (07:45→20:52)
[2016-06-25] MEDS: LIDODERM (LIDOCAINE) PATCH 5% TD SCH (07:45)
[2016-06-25] MEDS: TIOTROPIUM BROMIDE 5 PUFF/90 MCG INH INH SCH (07:45)
[2016-06-25] MEDS: FLUTICASONE PROPIONATE NA SPR 16 GM BTL NAE SCH (07:45)
[2016-06-25] MEDS: HEPARIN SOD 5000 UNIT/0.5 ML CARP SQ SCH ×2 (07:46→20:49)
--- NOTE | 2016-06-25 20:16 | Progress Note ---
Internal Med Progress Note Date of Service: Jun 25, 2016. Provider Documentation: SUBJECTIVE: feels a little bit better today breathing improved , still not baseline on Solu Medrol 30 mg IV BID OBJECTIVE: Vital Signs-as noted below Exam: General-no sign of distress , anxious Eyes-sclera non icteric ENT-NAD Neck-no thyromegaly Lungs- poor air entry , +wheeze Heart-regular S1/S2 Abdomen-soft, non tender Extremities-no lower ext edema Neuro-no focal neurological deficit Lab data as noted below. ASSESSMENT & PLAN: ACUTE EXACERBATION OF COPD respiratory status worsen today - will D/C PO prednisone started on IV Solumedrol 30 mg IV BID Daughter mentions -pt gets acute COPD attach any time prednisone lowered less than 20 mg daily will need slow prolong taper -pt will continued with PO Prednisone 30 mg PO Daily till evaluated by Pulmonology in office -Empirically treat for infection with Doxycycline -on Duonebs PRN -Continue Spiriva, Pulmicort -pulmonology consulted , appreciate input HYPOTHYROIDISM -continue Synthroid HTN -continue Amlodipine - ANXIETY - continue Ativan prn SIADH -Sodium 135 today -continue Sodium Tablets AAA -2.6 cm on 04/2015 CHRONIC BACK PAIN -continue lidocaine patch INSOMNIA -continue Trazodone RECENT TOBACCO CESSATION -quit approximately one month ago, applauded efforts -40+ pack year history DVT PROPHYLAXIS: Sq heparin CODE STATUS: FULL CODE Discharge home when medically stable medicine follow up with Dr Forman on 06/28 @ 11: 10 am Vital Signs: Date Time Temp Pulse Resp B/P Pulse Ox O2 Delivery O2 Flow Rate FiO2 06/25/16 19:10 97 16 98 Nasal Cannula 2.0 06/25/16 16:40 Nasal Cannula 2.0 06/25/16 15:13 100 16 98 Nasal Cannula 2.0 06/25/16 14:56 36.6 98 18 127/83 90 Room Air 06/25/16 11:10 114 16 96 Room Air 06/25/16 08:00 98 Nasal Cannula 2.0 06/25/16 07:08 36.7 85 16 157/80 98 2.0 06/25/16 07:01 76 12 98 Room Air 06/24/16 23:59 Nasal Cannula 2.0 06/24/16 23:06 36.6 96 18 166/85 96 Nasal Cannula 4.0
[2016-06-25] MEDS: TRAVOPROST Z 0.004% OPH SOLN 2.5 ML BTL OPB SCH (20:49)
[2016-06-25] MEDS: TRAZODONE HCL 50 MG TAB PO SCH (20:49)
[2016-06-25] MEDS: MELATONIN 3 MG TAB PO SCH (20:51)
[2016-06-26] VITALS (9 sets, daily range): BP systolic 113–156; BP diastolic 68–90; PULSE 54–192; TEMP 36.6–36.7; O2SAT 92–98
[2016-06-26] MEDS: LORAZEPAM 0.5 MG TAB PO PRN ×3 (05:07→19:23)
[2016-06-26] MEDS: METHYLPREDNISOLONE IV 30 MG in SYRINGE 0 ML IV SCH (06:00)
[2016-06-26] MEDS: LEVOTHYROXINE 75 MCG TAB PO SCH (06:00)
[2016-06-26] MEDS: ALBUT/IPRATROP 3MG/0.5MG NEB 3 ML VIAL INH SCH ×4 (06:58→19:21)
[2016-06-26] MEDS: BUDESONIDE 0.5 MG/2 ML VIAL (PULMICORT) INH SCH ×2 (06:58→19:21)
[2016-06-26] MEDS: AMLODIPINE BESYLATE 5 MG TAB PO SCH (07:58)
[2016-06-26] MEDS: DOXYCYCLINE HYCLATE 100 MG CAP PO SCH ×2 (07:58→20:48)
[2016-06-26] MEDS: FLUTICASONE PROPIONATE NA SPR 16 GM BTL NAE SCH (07:58)
[2016-06-26] MEDS: SODIUM CHLORIDE 1 GM TAB PO SCH ×3 (07:58→20:47)
[2016-06-26] MEDS: POTASSIUM CHLORIDE 10 MEQ TABCR PO SCH ×2 (07:59→20:46)
[2016-06-26] MEDS: PANTOprazole SOD 40 MG TAB PO SCH (07:59)
[2016-06-26] MEDS: LIDODERM (LIDOCAINE) PATCH 5% TD SCH (08:00)
[2016-06-26] MEDS: HEPARIN SOD 5000 UNIT/0.5 ML CARP SQ SCH ×2 (08:00→20:48)
[2016-06-26] MEDS: TIOTROPIUM BROMIDE 5 PUFF/90 MCG INH INH SCH (12:16)
--- NOTE | 2016-06-26 16:56 | Progress Note ---
Internal Med Progress Note Date of Service: Jun 26, 2016. Provider Documentation: SUBJECTIVE: resting comfortably says sob is better has cough with greenish sputum afebrile OBJECTIVE: Vital Signs-as noted below Exam: General-alert and oriented. Not in distress ENT-normal hearing Neck-no neck masses Lungs-cta b/l no wheezing no crackles Heart-s1 and s2 heard, regular rate and rhythm no murmurs Abdomen-soft bowel sounds present non tender no distension Extremities-no edema no erythema Neuro-alert and awake moves extremities Lab data as noted below. ASSESSMENT & PLAN: ACUTE EXACERBATION OF COPD respiratory status worsen today on iv steroids, nebs and doxycycline patient seems gets flare whenever prednisone dose is below 20mg. changed steroids to po pulmonary on board and appreciate inputs will monitor. HYPOTHYROIDISM on Synthroid HTN on Amlodipine - ANXIETY Ativan prn SIADH Sodium 135 on Sodium Tablets AAA 2.6 cm on 04/2015 CHRONIC BACK PAIN on lidocaine patch INSOMNIA on Trazodone RECENT TOBACCO CESSATION quit approximately one month ago 40+ pack year history DVT PROPHYLAXIS: Sq heparin CODE STATUS: FULL CODE DISPOSITION possible d/c in am if stable Vital Signs: Date Time Temp Pulse Resp B/P Pulse Ox O2 Delivery O2 Flow Rate FiO2 06/26/16 15:37 36.6 92 19 156/90 92 Room Air 06/26/16 15:35 Room Air 06/26/16 15:29 102 16 96 Room Air 06/26/16 12:55 36.6 54 18 119/72 95 Room Air 06/26/16 11:04 102 16 92 Room Air 06/26/16 08:15 Room Air 06/26/16 07:55 36.7 87 16 127/74 98 Room Air 06/26/16 06:58 87 16 97 Nasal Cannula 2.0 06/26/16 00:56 Room Air 06/26/16 00:12 36.7 97 18 113/68 94 Room Air 06/25/16 19:10 97 16 98 Nasal Cannula 2.0
[2016-06-26] MEDS: TRAVOPROST Z 0.004% OPH SOLN 2.5 ML BTL OPB SCH (20:45)
[2016-06-26] MEDS: TRAZODONE HCL 50 MG TAB PO SCH (20:46)
[2016-06-26] MEDS: MELATONIN 3 MG TAB PO SCH (20:47)
[2016-06-27] VITALS (10 sets, daily range): BP systolic 117–153; BP diastolic 62–88; PULSE 92–120; TEMP 36.4–36.8; O2SAT 93–98
[2016-06-27] MEDS: LEVOTHYROXINE 75 MCG TAB PO SCH (05:01)
[2016-06-27] MEDS: LORAZEPAM 0.5 MG TAB PO PRN ×3 (05:01→20:45)
[2016-06-27] MEDS: ALBUT/IPRATROP 3MG/0.5MG NEB 3 ML VIAL INH SCH ×4 (07:01→19:48)
[2016-06-27] MEDS: BUDESONIDE 0.5 MG/2 ML VIAL (PULMICORT) INH SCH ×2 (07:02→19:48)
[2016-06-27] MEDS: SODIUM CHLORIDE 1 GM TAB PO SCH ×3 (08:03→20:49)
[2016-06-27] MEDS: TIOTROPIUM BROMIDE 5 PUFF/90 MCG INH INH SCH (08:03)
[2016-06-27] MEDS: FLUTICASONE PROPIONATE NA SPR 16 GM BTL NAE SCH (08:03)
[2016-06-27] MEDS: DOXYCYCLINE HYCLATE 100 MG CAP PO SCH (08:03)
[2016-06-27] MEDS: PANTOprazole SOD 40 MG TAB PO SCH (08:04)
[2016-06-27] MEDS: POTASSIUM CHLORIDE 10 MEQ TABCR PO SCH ×2 (08:05→20:47)
[2016-06-27] MEDS: HEPARIN SOD 5000 UNIT/0.5 ML CARP SQ SCH ×2 (08:06→20:50)
[2016-06-27] MEDS: AMLODIPINE BESYLATE 5 MG TAB PO SCH (08:06)
[2016-06-27] MEDS: LIDODERM (LIDOCAINE) PATCH 5% TD SCH (08:08)
[2016-06-27] MEDS ORDERED: DILTIAZEM HCL 120 MG CAPCR PO SCH (10:00)
[2016-06-27 10:28] LABS: COMPLETE YES; HEMATOCRIT 29.5 % (37-47); IG% 1.6 %; LYMPH % 9.2 %; LYMPH ABS # 0.78 K/uL (1.2-3.4); MEAN CELL VOLUME 95.5 fL (80-100); MEAN CORPUSCULAR HEMOGLOBIN 33.3 pg (25-34); MEAN CORPUSCULAR HGB CONC 34.9 g/dl (32-36); MEAN PLATELET VOLUME 8.7 fL (7.4-10.4); NEUT % 81.2 %; PLATELET COUNT 189 K/uL (130-400); RED BLOOD COUNT 3.09 M/uL (4.2-5.4); WHITE BLOOD COUNT 8.51 K/uL (4.8-10.8)
[2016-06-27 10:55] LABS: BUN/CREATININE RATIO 48.3 (10-20); CALCIUM 8.1 mg/dl (8.5-10.1); CREATININE 0.78 mg/dl (0.60-1.20); POTASSIUM 3.7 mmol/L (3.5-5.1)
[2016-06-27 11:06] LABS: THYROID STIMULATING HORMONE 0.528 uIu/ml (0.300-4.500)
[2016-06-27] MEDS ORDERED: CEFEPIME CONSULT ACTIVE PRN ×2 (11:15)
[2016-06-27] MEDS ORDERED: CEFEPIME IV 2,000 MG in DEXTROSE 5% 100ML 100 ML IV ONE (11:30)
--- NOTE | 2016-06-27 12:26 | Progress Note ---
Internal Med Progress Note Date of Service: Jun 27, 2016. Provider Documentation: SUBJECTIVE: resting comfortably says felt sob early in the day bit better now had some chest tightness afebrile still has cough weak and tired OBJECTIVE: Vital Signs-as noted below Exam: General-alert and oriented. Not in distress ENT-normal hearing Neck-no neck masses Lungs-cta b/l occasional wheezing present no crackles Heart-s1 and s2 heard, regular rate and rhythm no murmurs Abdomen-soft bowel sounds present non tender no distension Extremities-no edema no erythema Neuro-alert and awake moves extremities Lab data as noted below. ASSESSMENT & PLAN: ACUTE EXACERBATION OF COPD respiratory status worsen today on iv steroids, nebs and doxycycline patient seems gets flare whenever prednisone dose is below 20mg. changed steroids to po pulmonary on board and appreciate inputs sputum growing pseudomonas changed abx to iv cefepime will monitor. HYPOTHYROIDISM on Synthroid free t4 high will cut back on Synthroid dose to 50mcg daily f/u labs in 4-6 weeks Sinus tachycardia also present pervious admission and echo was unremarkable cut back on Synthroid dose as above will monitor. HTN on Amlodipine - ANXIETY Ativan prn SIADH Sodium 135 on Sodium Tablets AAA 2.6 cm on 04/2015 CHRONIC BACK PAIN on lidocaine patch INSOMNIA on Trazodone RECENT TOBACCO CESSATION quit approximately one month ago 40+ pack year history DVT PROPHYLAXIS: Sq heparin CODE STATUS: FULL CODE DISPOSITION to be determined Vital Signs: Date Time Temp Pulse Resp B/P Pulse Ox O2 Delivery O2 Flow Rate FiO2 06/27/16 11:00 114 18 94 Room Air 06/27/16 10:59 112 134/68 06/27/16 08:01 94 Room Air 06/27/16 08:00 Room Air 2.0 Nasal Cannula 06/27/16 07:48 36.8 116 20 148/88 94 Room Air 06/27/16 07:23 36.6 99 20 153/79 96 Room Air 06/27/16 07:00 99 18 96 Room Air 06/27/16 00:00 Room Air 06/27/16 00:00 36.7 92 20 117/62 93 Room Air 06/26/16 20:57 20 06/26/16 19:35 Room Air 06/26/16 19:21 112 18 97 Room Air 06/26/16 15:37 36.6 92 19 156/90 92 Room Air 06/26/16 15:35 Room Air 06/26/16 15:29 102 16 96 Room Air 06/26/16 12:55 36.6 54 18 119/72 95 Room Air Lab Results: Results Past 24 Hours Test 06/27/16 10:15 Range/Units White Blood Count 8.51 4.8-10.8 K/uL Red Blood Count 3.09 4.2-5.4 M/uL Hemoglobin 10.3 12.0-16.0 g/dL Hematocrit 29.5 37-47 % Mean Corpuscular Volume 95.5 80-100 fL Mean Corpuscular Hemoglobin 33.3 25-34 pg Mean Corpuscular Hemoglobin Concent 34.9 32-36 g/dl Platelet Count 189 130-400 K/uL Mean Platelet Volume 8.7 7.4-10.4 fL Neutrophils (%) (Auto) 81.2 % Lymphocytes (%) (Auto) 9.2 % Monocytes (%) (Auto) 8.0 % Eosinophils (%) (Auto) 0.0 % Basophils (%) (Auto) 0.0 % Neutrophils # (Auto) 6.91 1.4-6.5 K/uL Lymphocytes # (Auto) 0.78 1.2-3.4 K/uL Monocytes # (Auto) 0.68 0.11-0.59 K/uL Eosinophils # (Auto) 0.00 0-0.5 K/uL Basophils # (Auto) 0.00 0-0.2 K/uL RDW Standard Deviation 50.2 36.4-46.3 fL RDW Coefficient of Variation 14.4 11.5-14.5 % Immature Granulocyte % (Auto) 1.6 % Immature Granulocyte # (Auto) 0.14 0.00-0.02 K/uL Sodium Level 136 136-145 mmol/L Potassium Level 3.7 3.5-5.1 mmol/L Chloride Level 103 98-107 mmol/L Carbon Dioxide Level 25 21-32 mmol/L Anion Gap 8.0 3-11 mmol/L Blood Urea Nitrogen 38 7-18 mg/dl Creatinine 0.78 0.60-1.20 mg/dl Est Creatinine Clear Calc Drug Dose 34.1 ml/min Estimated GFR () 86.8 Estimated GFR (Non- 74.9 BUN/Creatinine Ratio 48.3 10-20 Random Glucose 138 70-99 mg/dl Calcium Level 8.1 8.5-10.1 mg/dl Magnesium Level 2.0 1.8-2.4 mg/dl Thyroid Stimulating Hormone (TSH) 0.528 0.300-4.500 uIu/ml Free Thyroxine 1.61 0.80-1.60 ng/dl Free Triiodothyronine 1.56 2.30-4.20 pg/ml
[2016-06-27] MEDS ORDERED: CEFEPIME IV 2,000 MG in DEXTROSE 5% 100ML 100 ML IV SCH (14:00)
[2016-06-27] MEDS: TRAVOPROST Z 0.004% OPH SOLN 2.5 ML BTL OPB SCH (20:45)
[2016-06-27] MEDS: TRAZODONE HCL 50 MG TAB PO SCH (20:46)
[2016-06-27] MEDS: MELATONIN 3 MG TAB PO SCH (20:47)
[2016-06-27] MEDS: CEFEPIME IV 2,000 MG in DEXTROSE 5% 100ML 100 ML IV SCH (23:53)
[2016-06-28] VITALS (7 sets, daily range): BP systolic 123–154; BP diastolic 64–89; PULSE 87–96; TEMP 36.6–36.8; O2SAT 93–99
[2016-06-28] MEDS: LORAZEPAM 0.5 MG TAB PO PRN ×3 (04:38→19:02)
[2016-06-28] MEDS: LEVOTHYROXINE 50 MCG TAB PO SCH (05:54)
[2016-06-28] MEDS: BUDESONIDE 0.5 MG/2 ML VIAL (PULMICORT) INH SCH ×2 (07:28→20:11)
[2016-06-28] MEDS: ALBUT/IPRATROP 3MG/0.5MG NEB 3 ML VIAL INH SCH ×4 (07:28→20:11)
[2016-06-28 07:48] LABS: CREATININE 0.8 mg/dl (0.60-1.20)
[2016-06-28] MEDS: TIOTROPIUM BROMIDE 5 PUFF/90 MCG INH INH SCH (08:47)
[2016-06-28] MEDS: FLUTICASONE PROPIONATE NA SPR 16 GM BTL NAE SCH (08:48)
[2016-06-28] MEDS: POTASSIUM CHLORIDE 10 MEQ TABCR PO SCH ×2 (08:48→21:52)
[2016-06-28] MEDS: AMLODIPINE BESYLATE 5 MG TAB PO SCH (08:49)
[2016-06-28] MEDS: PANTOprazole SOD 40 MG TAB PO SCH (08:49)
[2016-06-28] MEDS: SODIUM CHLORIDE 1 GM TAB PO SCH ×3 (08:50→21:53)
[2016-06-28] MEDS: HEPARIN SOD 5000 UNIT/0.5 ML CARP SQ SCH ×2 (08:50→21:00)
[2016-06-28] MEDS: LIDODERM (LIDOCAINE) PATCH 5% TD SCH (08:50)
[2016-06-28] MEDS: CEFEPIME IV 2,000 MG in DEXTROSE 5% 100ML 100 ML IV SCH ×2 (12:16→23:36)
--- NOTE | 2016-06-28 16:19 | Progress Note ---
Internal Med Progress Note Date of Service: Jun 28, 2016. Provider Documentation: SUBJECTIVE: resting comfortably says little while ago had chest pain and sob but got resolved now afebrile no nausea was seeing some lines but as she weared her oxygen back she is not seeing them anymore. OBJECTIVE: Vital Signs-as noted below Exam: General-alert and oriented. Not in distress ENT-normal hearing Neck-no neck masses Lungs-cta b/l occasional wheezing present no crackles Heart-s1 and s2 heard, regular rate and rhythm no murmurs Abdomen-soft bowel sounds present non tender no distension Extremities-no edema no erythema Neuro-alert and awake moves extremities Lab data as noted below. ASSESSMENT & PLAN: ACUTE EXACERBATION OF COPD respiratory status worsen today on iv steroids, nebs and doxycycline patient seems gets flare whenever prednisone dose is below 20mg. changed steroids to po pulmonary on board and appreciate inputs sputum growing pseudomonas changed abx to iv cefepime needs 14days of iv abx as per pulmonary patient to decide about picc line will monitor. HYPOTHYROIDISM on Synthroid free t4 high will cut back on Synthroid dose to 50mcg daily f/u labs in 4-6 weeks Sinus tachycardia also present pervious admission and echo was unremarkable cut back on Synthroid dose as above will monitor. 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 AAA 2.6 cm on 04/2015 CHRONIC BACK PAIN on lidocaine patch INSOMNIA on Trazodone RECENT TOBACCO CESSATION quit approximately one month ago 40+ pack year history DVT PROPHYLAXIS: Sq heparin CODE STATUS: FULL CODE DISPOSITION pt/ot social service for d/c planning to be determined Vital Signs: Date Time Temp Pulse Resp B/P Pulse Ox O2 Delivery O2 Flow Rate FiO2 06/28/16 14:49 93 18 98 Nasal Cannula 2.0 06/28/16 14:10 36.6 87 22 154/89 97 Nasal Cannula 06/28/16 08:00 Room Air 2.0 Nasal Cannula 06/28/16 07:28 93 18 98 Nasal Cannula 2.0 06/28/16 07:23 36.6 96 20 143/74 98 Nasal Cannula 2.0 06/28/16 00:00 94 Room Air 06/28/16 00:00 36.7 91 18 125/64 94 Room Air 06/27/16 19:48 93 18 98 Nasal Cannula 2.0 93 Lab Results: Results Past 24 Hours Test 06/28/16 06:50 06/28/16 16:00 Range/Units Creatinine 0.80 0.60-1.20 mg/dl Est Creatinine Clear Calc Drug Dose 33.2 ml/min Estimated GFR () 84.2 Estimated GFR (Non- 72.6
--- NOTE | 2016-06-28 18:52 | Pulmonology Progress Note ---
Pulmonary Progress Note Date of Service Jun 28, 2016. Attending Dr. Nelson Subjective Patient notes her respiratory status is improving with notable increased. In Objective 76-year-old female admitted with COPD exacerbation and recent pseudomonal pneumonia/bronchiectasis: PMHx includes: SIADH, hyponatremia, glaucoma, hypothyroid, ACOS/Emphysema (PFT FEV1: 0.64/35%-10% change, FEV1/FVC: 41), h/o pneumonia with sputum + MSSA (2014), allergic rhinitis, anxiety, chronic sinusitis and hypertension. She is a current smoker formally smoking 3 ppd x 30-years (current 1-ppd). Vital signs: Reviewed Physical Exam: Constitutional: Well developed, thin elderly female. Resting quielty in hospital bed. No acute distress. Head: + facial symmetry Eyes: EOMi, PERRLA, no conjunctival injection Mouth: Mallampati [III]. Poor dentition. No erythema, exudate, or post nasal gtt Neck: Trachea midline. No adenopathy or masses Respiratory: Non-labored respirations. Very diminished throughout. Scattered crackles bialteral bases with bronchial breath sounds anteriorly. No wheeze. Loose cough. No clubbing or cyanosis. Cardiovascular: Rapid rate, regular rhythm, no MRG. +2 radial pulses. <1s capillary refill. Integumentary: no rashes, or ecchymosis MSK/Extremities: Moving and developed symmetrically. Mild kyphosis No peripheral edema. No calf tenderness. Neurologic: A&O, data recall in-tact. Appropriate affect. #1 Cefepime 2 g IV every 12 #2 prednisone 60 mg daily #3 Flonase 2 puffs daily #4 Spiriva one puff every morning #5 budesonide nebulized twice a day Assessment & Plan 76-year-old female with very severe COPD FEV1 35% predicted admitted with COPD exacerbation now pseudomonal pneumonia/bronchiectasis: #1 COPD: Agree with continuing current medical regimen at this time as secondary etiology has been determined and patient is progressing. #2 ID: Patient grew out Pseudomonas from sputum sample obtained 06/22/2016. Agree with primary care team's initiation of cefepime and continuation of 10-14 day course. Data Medications: Current Inpatient Medications Medications (Trade) Dose Ordered Sig/Jhon Route Start Time Stop Time Status Last Admin Dose Admin Acetaminophen (Tylenol Tab) 650 mg Q4H PRN PO 06/20/16 14:00 07/20/16 13:59 Ondansetron HCl (Zofran Inj) 4 mg Q6H PRN IV 06/20/16 14:00 07/20/16 13:59 Albuterol/ Ipratropium (Duoneb) 3 ml QIDR INH 06/20/16 16:00 07/20/16 15:59 06/28/16 14:49 3 ML Amlodipine Besylate (Norvasc Tab) 2.5 mg DAILY PO 06/21/16 09:00 07/21/16 08:59 06/28/16 08:49 2.5 MG Budesonide (Pulmicort Respules 0.5MG/ 2ML Neb Soln) 1 mg BIDR INH 06/20/16 20:00 07/20/16 19:59 06/28/16 07:28 1 MG Fluticasone Propionate (Flonase Nasal [place]) 2 sprays DAILY NADIA 06/21/16 09:00 07/21/16 08:59 06/28/16 08:48 2 SPRAYS Lactulose (Chronulac Syrup) 10 gm BID PRN PO 06/20/16 14:00 07/20/16 13:59 Lidocaine (Lidoderm Patch 5%) 1 patch DAILY@0900 TD 06/21/16 09:00 07/21/16 08:59 06/28/16 08:50 1 PATCH Lorazepam (Ativan Tab) 0.5 mg TID PRN PO 06/20/16 14:00 07/20/16 13:59 06/28/16 12:14 0.5 MG Potassium Chloride (Klor-Con M10) 10 meq BID PO 06/20/16 21:00 07/20/16 20:59 06/28/16 08:48 10 MEQ Sodium Chloride (Sodium Chloride Tab) 1 gm TID PO 06/20/16 14:00 07/20/16 13:59 06/28/16 13:55 1 GM Tiotropium [place] (Spiriva Handihaler Inhaler) 1 puff QAM INH 06/21/16 09:00 07/21/16 08:59 06/28/16 08:47 1 PUFF Travoprost (Travatan Z) 1 drops HS OPB 06/20/16 21:00 07/20/16 20:59 06/27/16 20:45 1 DROPS Trazodone HCl (Desyrel Tab) 50 mg HS PO 06/20/16 21:00 07/20/16 20:59 06/27/16 20:46 50 MG Miscellaneous (Remove Lidoderm Patch) 1 ea DAILY@21 N/A 06/20/16 21:00 07/20/16 20:59 06/27/16 20:49 1 EA Heparin Sodium (Porcine) (Heparin Sq 5000 Unit/0.5ml) 5,000 unit Q12 SQ 06/20/16 21:00 07/20/16 20:59 Pantoprazole Sodium (Protonix Tab) 40 mg QAM PO 06/21/16 09:00 07/21/16 08:59 06/28/16 08:49 40 MG Sodium Chloride ([place] Nasal [place]) 1 sprays PRN PRN NA 06/22/16 21:00 07/22/16 20:59 Prednisone 60 mg 60 mg DAILY PO 06/27/16 09:00 07/27/16 08:59 06/28/16 08:48 60 MG Cefepime HCl/ Dextrose (Maxipime IV/D5 100ml) 112.5 ml @ 200 mls/hr Q12H IV 06/28/16 00:00 07/03/16 11:59 06/28/16 12:16 200 MLS/HR Cefepime HCl (Consult) 1 ea UD PRN N/A 06/27/16 11:15 07/27/16 11:14 Levothyroxine Sodium (Synthroid Tab) 50 mcg DAILYBB PO 06/28/16 06:30 07/28/16 06:29 06/28/16 05:54 50 MCG I & O: 24-Hour Column 06/28/16 08:00 Intake Total 400 ml Balance 400 ml Vital Signs: Date Time Temp Pulse Resp B/P Pulse Ox O2 Delivery O2 Flow Rate FiO2 06/28/16 16:00 Nasal Cannula 2.0 06/28/16 14:49 93 18 98 Nasal Cannula 2.0 06/28/16 14:10 36.6 87 22 154/89 97 Nasal Cannula 06/28/16 08:00 Room Air 2.0 Nasal Cannula 06/28/16 07:28 93 18 98 Nasal Cannula 2.0 06/28/16 07:23 36.6 96 20 143/74 98 Nasal Cannula 2.0 06/28/16 00:00 94 Room Air 06/28/16 00:00 36.7 91 18 125/64 94 Room Air 06/27/16 19:48 93 18 98 Nasal Cannula 2.0 93 Laboratory Results: Last 24 Hours Test 06/28/16 06:50 06/28/16 16:35 Creatinine 0.80 mg/dl Est Creatinine Clear Calc Drug Dose 33.2 ml/min Estimated GFR () 84.2 Estimated GFR (Non- 72.6 Troponin I < 0.015 ng/ml
[2016-06-28] MEDS: TRAZODONE HCL 50 MG TAB PO SCH (21:51)
[2016-06-28] MEDS: TRAVOPROST Z 0.004% OPH SOLN 2.5 ML BTL OPB SCH (21:51)
[2016-06-29] VITALS (8 sets, daily range): BP systolic 127–140; BP diastolic 74–77; PULSE 86–102; TEMP 36.7; O2SAT 96–98
[2016-06-29] MEDS: MELATONIN 3 MG TAB PO SCH (00:14)
[2016-06-29] MEDS: TRAMADOL HCL 50 MG TAB PO PRN (02:50)
[2016-06-29] MEDS: LORAZEPAM 0.5 MG TAB PO PRN ×3 (03:47→19:53)
[2016-06-29] MEDS: LEVOTHYROXINE 50 MCG TAB PO SCH (06:00)
[2016-06-29 07:01] LABS: CREATININE 0.74 mg/dl (0.60-1.20)
[2016-06-29] MEDS: BUDESONIDE 0.5 MG/2 ML VIAL (PULMICORT) INH SCH ×2 (07:08→19:24)
[2016-06-29] MEDS: ALBUT/IPRATROP 3MG/0.5MG NEB 3 ML VIAL INH SCH ×4 (07:08→19:23)
[2016-06-29] MEDS: TIOTROPIUM BROMIDE 5 PUFF/90 MCG INH INH SCH (08:24)
[2016-06-29] MEDS: PANTOprazole SOD 40 MG TAB PO SCH (08:25)
[2016-06-29] MEDS: AMLODIPINE BESYLATE 5 MG TAB PO SCH (08:25)
[2016-06-29] MEDS: SODIUM CHLORIDE 1 GM TAB PO SCH ×3 (08:26→20:54)
[2016-06-29] MEDS: HEPARIN SOD 5000 UNIT/0.5 ML CARP SQ SCH ×2 (08:27→20:53)
[2016-06-29] MEDS: FLUTICASONE PROPIONATE NA SPR 16 GM BTL NAE SCH (08:27)
[2016-06-29] MEDS: POTASSIUM CHLORIDE 10 MEQ TABCR PO SCH ×2 (08:27→20:52)
[2016-06-29] MEDS: LIDODERM (LIDOCAINE) PATCH 5% TD SCH (08:27)
[2016-06-29] MEDS: CEFEPIME IV 2,000 MG in DEXTROSE 5% 100ML 100 ML IV SCH (11:55)
--- NOTE | 2016-06-29 15:38 | Progress Note ---
Internal Med Progress Note Date of Service: Jun 29, 2016. Provider Documentation: SUBJECTIVE: resting comfortably says was little sob earlier but ok now eating ok ambulated fine cough is better OBJECTIVE: Vital Signs-as noted below Exam: General-alert and oriented. Not in distress ENT-normal hearing Neck-no neck masses Lungs-cta b/l occasional wheezing present no crackles Heart-s1 and s2 heard, regular rate and rhythm no murmurs Abdomen-soft bowel sounds present non tender no distension Extremities-no edema no erythema Neuro-alert and awake moves extremities Lab data as noted below. ASSESSMENT & PLAN: ACUTE EXACERBATION OF COPD respiratory status worsen today on iv steroids, nebs and doxycycline patient seems gets flare whenever prednisone dose is below 20mg. changed steroids to po pulmonary on board and appreciate inputs sputum growing pseudomonas changed abx to iv cefepime needs 14days of iv abx as per pulmonary s/p picc line improving HYPOTHYROIDISM on Synthroid free t4 high will cut back on Synthroid dose to 50mcg daily f/u labs in 4-6 weeks Sinus tachycardia also present pervious admission and echo was unremarkable cut back on Synthroid dose as above if elevated during 6minute walk will start on po Cardizem will monitor. 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 AAA 2.6 cm on 04/2015 CHRONIC BACK PAIN on lidocaine patch INSOMNIA on Trazodone RECENT TOBACCO CESSATION quit approximately one month ago 40+ pack year history DVT PROPHYLAXIS: Sq heparin CODE STATUS: FULL CODE DISPOSITION pt/ot social service for d/c planning two step prior to discharge possible d/c on Saturday Vital Signs: Date Time Temp Pulse Resp B/P Pulse Ox O2 Delivery O2 Flow Rate FiO2 06/29/16 15:20 88 18 98 Nasal Cannula 2.0 06/29/16 14:53 36.7 91 18 127/77 96 Room Air 06/29/16 08:23 97 Nasal Cannula 2.0 06/29/16 08:00 97 Nasal Cannula 2.0 06/29/16 07:41 36.7 102 22 140/74 97 Nasal Cannula 2.0 06/29/16 07:08 86 18 98 Nasal Cannula 2.0 06/28/16 23:40 Nasal Cannula 2.0 06/28/16 22:38 36.8 93 18 123/73 93 Nasal Cannula 2.0 06/28/16 20:11 89 18 99 Nasal Cannula 2.0 06/28/16 16:00 Nasal Cannula 2.0 Lab Results: Results Past 24 Hours Test 06/28/16 16:35 06/28/16 20:20 06/29/16 05:55 Range/Units Troponin I < 0.015 < 0.015 0-0.045 ng/ml Creatinine 0.74 0.60-1.20 mg/dl Est Creatinine Clear Calc Drug Dose 35.9 ml/min Estimated GFR () 92.5 Estimated GFR (Non- 79.8
--- NOTE | 2016-06-29 18:05 | PROGRESS NOTE ---
DATE: 06/29/2016 PROBLEM LIST: Includes 1. Pseudomonal pneumonia/bronchiectasis. 2. COPD exacerbation. SUBJECTIVE: The patient reports that her breathing is doing better today. She states that yesterday was a bad day and she is feeling better today. She denies any increased cough or congestion. She states that she still is coughing a little bit with some mucus. She is not as short of breath. She denies any fever or chills. No chest discomfort. No abdominal discomfort, no diarrhea. Her bowels are moving okay. No difficulty voiding. No swelling in her extremities. OBJECTIVE: GENERAL: The patient is a well-nourished, well developed 76-year-old female in no acute distress. She is alert and oriented x3. Mood is good. Affect is good. VITAL SIGNS: Temp 36.7, pulse 91, respirations 18, blood pressure is 127/77, pulse ox 96% on 2 liters. HEENT: Normocephalic, atraumatic. Pupils equal, round and reactive to light and accommodation. Extraocular movements are intact. [place] moist gingival and buccal mucosa. NECK: Supple. No mass, no adenopathy, no bruit. CHEST: Few coarse wheezes yet in the upper airway on exhalation. No rale or rhonchi. CARDIOVASCULAR: Regular rate and rhythm. No murmurs, gallops or rubs. ABDOMEN: Soft, nontender. No guarding, rigidity or organomegaly. EXTREMITIES: No erythema or edema. NEUROLOGIC: Cranial nerves II through XII are intact. No focal deficit noted. No new lab or imaging data. IMPRESSION: This is a 76-year-old female with pseudomonal respiratory infection and chronic obstructive pulmonary disease exacerbation. At this time, she is on appropriate medications. Would recommend that she continue the cefepime for 10-14-day course. At this point, she appears to be relatively stable. For now, I believe we can sign off on this patient; however, I will be available if her pulmonary status deteriorates. Patient seen and examined and the plan agreed upon [facility]
[2016-06-29] MEDS: TRAZODONE HCL 50 MG TAB PO SCH (20:53)
[2016-06-29] MEDS: TRAVOPROST Z 0.004% OPH SOLN 2.5 ML BTL OPB SCH (20:53)
[2016-06-30] VITALS (8 sets, daily range): BP systolic 117–136; BP diastolic 61–73; PULSE 81–103; TEMP 36.5–36.8; O2SAT 95–98
[2016-06-30] MEDS: CEFEPIME IV 2,000 MG in DEXTROSE 5% 100ML 100 ML IV SCH ×2 (01:36→12:42)
[2016-06-30] MEDS: MELATONIN 3 MG TAB PO SCH ×2 (01:36→21:12)
[2016-06-30] MEDS: LORAZEPAM 0.5 MG TAB PO PRN ×3 (05:30→21:10)
[2016-06-30] MEDS: LEVOTHYROXINE 50 MCG TAB PO SCH (05:30)
[2016-06-30] MEDS: BUDESONIDE 0.5 MG/2 ML VIAL (PULMICORT) INH SCH ×2 (07:05→19:39)
[2016-06-30] MEDS: ALBUT/IPRATROP 3MG/0.5MG NEB 3 ML VIAL INH SCH ×4 (07:05→19:39)
[2016-06-30 07:12] LABS: CREATININE 0.71 mg/dl (0.60-1.20)
[2016-06-30] MEDS: LIDODERM (LIDOCAINE) PATCH 5% TD SCH (09:00)
[2016-06-30] MEDS: HEPARIN SOD 5000 UNIT/0.5 ML CARP SQ SCH ×2 (09:00→21:00)
[2016-06-30] MEDS: FLUTICASONE PROPIONATE NA SPR 16 GM BTL NAE SCH (09:02)
[2016-06-30] MEDS: POTASSIUM CHLORIDE 10 MEQ TABCR PO SCH ×2 (09:02→21:11)
[2016-06-30] MEDS: SODIUM CHLORIDE 1 GM TAB PO SCH ×3 (09:03→21:11)
[2016-06-30] MEDS: AMLODIPINE BESYLATE 5 MG TAB PO SCH (09:03)
[2016-06-30] MEDS: PANTOprazole SOD 40 MG TAB PO SCH (09:03)
[2016-06-30] MEDS: TIOTROPIUM BROMIDE 5 PUFF/90 MCG INH INH SCH (09:05)
--- NOTE | 2016-06-30 13:26 | Progress Note ---
Internal Med Progress Note Date of Service: Jun 30, 2016. Provider Documentation: SUBJECTIVE: resting comfortably says still somewhat sob cough is much better eating ok afebrile OBJECTIVE: Vital Signs-as noted below Exam: General-alert and oriented. Not in distress ENT-normal hearing Neck-no neck masses Lungs-cta b/l occasional wheezing present no crackles Heart-s1 and s2 heard, regular rate and rhythm no murmurs Abdomen-soft bowel sounds present non tender no distension Extremities-no edema no erythema Neuro-alert and awake moves extremities Lab data as noted below. ASSESSMENT & PLAN: ACUTE EXACERBATION OF COPD respiratory status worsen today on iv steroids, nebs and doxycycline patient seems gets flare whenever prednisone dose is below 20mg. changed steroids to po pulmonary on board and appreciate inputs sputum growing pseudomonas changed abx to iv cefepime needs 14days of iv abx as per pulmonary s/p picc line improving two step prior to d/c plan for d/c in am HYPOTHYROIDISM on Synthroid free t4 high cut back on Synthroid dose to 50mcg daily f/u labs in 4-6 weeks Sinus tachycardia also present pervious admission and echo was unremarkable cut back on Synthroid dose as above if elevated during 6minute walk will start on po Cardizem will monitor. 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 AAA 2.6 cm on 04/2015 CHRONIC BACK PAIN on lidocaine patch INSOMNIA on Trazodone RECENT TOBACCO CESSATION quit approximately one month ago 40+ pack year history DVT PROPHYLAXIS: Sq heparin CODE STATUS: FULL CODE DISPOSITION pt/ot social service for d/c planning two step prior to discharge possible d/c in am Vital Signs: Date Time Temp Pulse Resp B/P Pulse Ox O2 Delivery O2 Flow Rate FiO2 06/30/16 11:03 93 18 95 Nasal Cannula 2.0 06/30/16 07:19 36.5 81 20 136/73 98 06/30/16 07:15 Room Air 06/30/16 07:05 87 18 98 Nasal Cannula 2.0 06/30/16 00:31 36.8 97 18 125/69 98 Nasal Cannula 2.0 06/30/16 00:30 Nasal Cannula 2.0 06/29/16 19:24 87 18 98 Nasal Cannula 2.0 06/29/16 16:00 97 Nasal Cannula 2.0 06/29/16 15:20 88 18 98 Nasal Cannula 2.0 06/29/16 14:53 36.7 91 18 127/77 96 Room Air Lab Results: Results Past 24 Hours Test 06/30/16 06:12 Range/Units Creatinine 0.71 0.60-1.20 mg/dl Est Creatinine Clear Calc Drug Dose 37.4 ml/min Estimated GFR () 97.3 Estimated GFR (Non- 83.9
[2016-06-30] MEDS ORDERED: CALCIUM CARBONATE 500 MG CHEWABLE PO PRN (18:15)
[2016-06-30] MEDS: TRAZODONE HCL 50 MG TAB PO SCH (21:12)
[2016-06-30] MEDS: TRAVOPROST Z 0.004% OPH SOLN 2.5 ML BTL OPB SCH (21:12)
[2016-07-01] VITALS (8 sets, daily range): BP systolic 135–167; BP diastolic 67–70; PULSE 81–101; TEMP 36.5–36.7; O2SAT 93–99
[2016-07-01] MEDS ORDERED: CEFEPIME IV 2,000 MG in DEXTROSE 5% 100ML 100 ML IV SCH ×2
[2016-07-01] MEDS: LORAZEPAM 0.5 MG TAB PO PRN ×3 (03:28→21:56)
[2016-07-01] MEDS: LEVOTHYROXINE 50 MCG TAB PO SCH (05:39)
[2016-07-01] MEDS: ALBUT/IPRATROP 3MG/0.5MG NEB 3 ML VIAL INH SCH ×4 (06:44→19:59)
[2016-07-01] MEDS: BUDESONIDE 0.5 MG/2 ML VIAL (PULMICORT) INH SCH ×2 (06:44→19:59)
[2016-07-01] MEDS: TRAMADOL HCL 50 MG TAB PO PRN (07:15)
[2016-07-01] MEDS: HEPARIN SOD 5000 UNIT/0.5 ML CARP SQ SCH ×2 (09:00→20:16)
[2016-07-01] MEDS: LIDODERM (LIDOCAINE) PATCH 5% TD SCH (09:24)
[2016-07-01] MEDS: PANTOprazole SOD 40 MG TAB PO SCH (09:24)
[2016-07-01] MEDS: SODIUM CHLORIDE 1 GM TAB PO SCH ×3 (09:24→20:15)
[2016-07-01] MEDS: AMLODIPINE BESYLATE 5 MG TAB PO SCH (09:25)
[2016-07-01] MEDS: POTASSIUM CHLORIDE 10 MEQ TABCR PO SCH ×2 (09:26→20:15)
[2016-07-01] MEDS: FLUTICASONE PROPIONATE NA SPR 16 GM BTL NAE SCH (09:26)
[2016-07-01] MEDS: TIOTROPIUM BROMIDE 5 PUFF/90 MCG INH INH SCH (09:46)
[2016-07-01] MEDS: DILTIAZEM HCL 120 MG CAPCR PO SCH (09:47)
[2016-07-01] MEDS: CEFEPIME IV 2,000 MG in DEXTROSE 5% 100ML 100 ML IV SCH ×2 (10:56→22:39)
--- NOTE | 2016-07-01 17:03 | Progress Note ---
Internal Med Progress Note Date of Service: Jul 01, 2016. Provider Documentation: SUBJECTIVE: resting comfortably upset that she did not qualify for home oxygen daughter requesting for nocturnal pulse oximetry was tachycardic while doing two step denies sob OBJECTIVE: Vital Signs-as noted below Exam: General-alert and oriented. Not in distress ENT-normal hearing Neck-no neck masses Lungs-cta b/l no wheezing present no crackles Heart-s1 and s2 heard, regular rate and rhythm no murmurs Abdomen-soft bowel sounds present non tender no distension Extremities-no edema no erythema Neuro-alert and awake moves extremities Lab data as noted below. ASSESSMENT & PLAN: ACUTE EXACERBATION OF COPD respiratory status worsen today on iv steroids, nebs and doxycycline patient seems gets flare whenever prednisone dose is below 20mg. changed steroids to po pulmonary on board and appreciate inputs sputum growing pseudomonas changed abx to iv cefepime needs 14days of iv abx as per pulmonary s/p picc line improving not requiring oxygen on two step evaluation but was tachycardic nocturnal pulse ox study tonight plan for d/c in am HYPOTHYROIDISM on Synthroid free t4 high cut back on Synthroid dose to 50mcg daily f/u labs in 4-6 weeks Sinus tachycardia also present pervious admission and echo was unremarkable cut back on Synthroid dose as above heart rates during 6minute walk today and start on po Cardizem will monitor and adjust dose. 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 AAA 2.6 cm on 04/2015 CHRONIC BACK PAIN on lidocaine patch INSOMNIA on Trazodone RECENT TOBACCO CESSATION quit approximately one month ago 40+ pack year history DVT PROPHYLAXIS: Sq heparin CODE STATUS: FULL CODE DISPOSITION pt/ot social service for d/c planning possible d/c in am Vital Signs: Date Time Temp Pulse Resp B/P Pulse Ox O2 Delivery O2 Flow Rate FiO2 07/01/16 15:51 36.5 91 18 135/70 94 Room Air 07/01/16 14:02 95 18 97 Room Air 07/01/16 13:12 101 149/67 94 Room Air 07/01/16 11:02 90 18 93 Room Air 07/01/16 07:30 Nasal Cannula 2.0 07/01/16 07:03 36.7 98 18 167/68 99 Mask 07/01/16 06:45 81 18 98 Nasal Cannula 2.0 06/30/16 23:40 Nasal Cannula 2.0 06/30/16 23:14 Room Air 06/30/16 22:56 36.7 100 14 126/61 98 Nasal Cannula 2.0 06/30/16 19:39 103 18 97 Nasal Cannula 2.0
[2016-07-01] MEDS: TRAVOPROST Z 0.004% OPH SOLN 2.5 ML BTL OPB SCH ×2 (20:14→21:57)
[2016-07-01] MEDS: MELATONIN 3 MG TAB PO SCH ×2 (20:14→21:57)
[2016-07-01] MEDS: TRAZODONE HCL 50 MG TAB PO SCH (20:14)
[2016-07-02 00:55] VITALS: BP 113/79; PULSE 87; TEMP 36.3; O2SAT 95
[2016-07-02] MEDS: LORAZEPAM 0.5 MG TAB PO PRN ×2 (05:50→12:30)
[2016-07-02] MEDS: LEVOTHYROXINE 50 MCG TAB PO SCH (05:50)
[2016-07-02 06:56] VITALS: PULSE 87; O2SAT 96
[2016-07-02] MEDS: ALBUT/IPRATROP 3MG/0.5MG NEB 3 ML VIAL INH SCH ×2 (06:56→11:05)
--- NOTE | 2016-07-02 07:01 | Clinical Documentation Query ---
CLINICAL DOCUMENTATION QUERY Dr. GRUBER, In your clinical opinion is this patient being managed for: ( ) Pseudomonas Pneumonia ( ) Other explanation of clinical findings (Please Explain) ( ) Unable to determine (Please Define) ( ) Need to Discuss ( ) Not Agree The medical record reflects the following clinical findings, treatment, and risk factors. Clinical Indicators: Progress note indicates pt with sputum growing pseudomonas. Treatment: IV antibiotic changed to cefepime, pulmonary consult and management, IV solumedrol changed to po prednisone, nebs, Risk Factors: age, COPD, Please clarify and document your clinical opinion in the progress notes and discharge summary. Terms such as "probable", "suspected", "likely", "questionable", "possible", or "still to be ruled out" are acceptable. IF IN AGREEMENT, YOU MUST DOCUMENT ABOVE DIAGNOSTIC STATEMENT IN DAILY PROGRESS NOTES AND DISCHARGE SUMMARY. This document is not part of the patient's record. Thank You, Harper Jade RN [phone]
[2016-07-02] MEDS: BUDESONIDE 0.5 MG/2 ML VIAL (PULMICORT) INH SCH (07:34)
[2016-07-02] MEDS: SODIUM CHLORIDE 1 GM TAB PO SCH ×2 (07:37→12:30)
[2016-07-02] MEDS: POTASSIUM CHLORIDE 10 MEQ TABCR PO SCH (07:37)
[2016-07-02] MEDS: DILTIAZEM HCL 120 MG CAPCR PO SCH (07:37)
[2016-07-02] MEDS: PANTOprazole SOD 40 MG TAB PO SCH (07:37)
[2016-07-02] MEDS: HEPARIN SOD 5000 UNIT/0.5 ML CARP SQ SCH (07:38)
[2016-07-02] MEDS: LIDODERM (LIDOCAINE) PATCH 5% TD SCH (07:38)
[2016-07-02] MEDS: FLUTICASONE PROPIONATE NA SPR 16 GM BTL NAE SCH (07:40)
[2016-07-02 07:46] VITALS: BP 130/70; PULSE 77; TEMP 36.7; O2SAT 94
--- NOTE | 2016-07-02 07:48 | PROGRESS NOTE ---
DATE: 07/02/2016 SUBJECTIVE: The patient is comfortable this morning. She denies cough or significant sputum production or any chest pain. She states she slept fairly well last night. According to nurses' note, she had a fairly good day yesterday. Had a 6 min.exercise study done developed some tachycardia with that. She is maintained on oxygen at 2 liters per minute. Longest time with saturation below 89% was 2 minutes. Lowest oxygen sat was 88%. Her activity has been fairly good. She states she was out of bed in the chair yesterday. MEDICATIONS: Noted. PHYSICAL EXAMINATION: VITAL SIGNS: Stable. Blood pressure 113/79, oxygen saturations 95% on room air and she is afebrile. Her I\T\O is not noted. Weight was 34.1 kilograms on the . When she was here in October 2015, her weight was 40.2 kilograms, so she has had a continued significant weight reduction over the last year. HEENT: Unremarkable. No tenderness over the sinuses. There is no thrush. No adenopathy is noted. NECK: There is no neck vein distention or HJR. HEART: Regular rate and rhythm. No murmurs are heard. LUNGS: Revealed markedly decreased breath sounds bilaterally. No crackles or rales noted. There is accentuation of the kyphotic curve of the thoracic spine with hyperinflation. ABDOMEN: Soft, nontender. EXTREMITIES: She has no cyanosis, clubbing or edema. LABORATORY DATA: White count on the 15 was stable at 8.5 with a hemoglobin of 10.3. The creatinine is 0.7, CO2 was elevated on the last electrolytes on the at 38. A T4 was elevated at 1.6. Chest film shows changes consistent with hyperinflation. Sputum Gram stain revealed Pseudomonas, but revealed many epithelial cells, and probably was a contaminated specimen. That was done on the . IMPRESSION: 1. Chronic obstructive pulmonary disease with exacerbation, stable. 2. Hypertension. 3. Hypothyroidism. RECOMMENDATIONS: 1. Continue with her present inhalers and because of the Pseudomonas in the sputum, it may be judicious to treat for 7 days with the cefepime. 2. Decrease prednisone at 40 mg daily. According to the ATS recommendations 40 mg of prednisone is appropriate for exacerbations of chronic obstructive lung disease. I do not have her pulmonary function studies, but from her records and CT scan that was done during her last hospitalization, she is probably a gold class 4. 3. Continue on the Spiriva antireflux regimen and Pulmicort Respules. She may be a candidate for long-acting bronchodilator as well. Symbicort 160/4.5 could be instituted and the Pulmicort Respules could be discontinued. Good DVT prophylaxis is helpful as well. Overall, today she is stable. MTDD
[2016-07-02 07:50] LABS: CREATININE 0.68 mg/dl (0.60-1.20)
[2016-07-02 08:31] VITALS: O2SAT 94
[2016-07-02] MEDS: TIOTROPIUM BROMIDE 5 PUFF/90 MCG INH INH SCH (10:48)
[2016-07-02] MEDS: CEFEPIME IV 2,000 MG in DEXTROSE 5% 100ML 100 ML IV SCH (10:48)
--- NOTE | 2016-07-02 10:53 | Discharge Instructions ---
Discharge Instructions Date of Service Jul 02, 2016. Admission Reason for Admission: Acute Bronchitis; Copd; Respiratory Distress Discharge Discharge Diagnosis / Problem: acute bronchitis with pseudomonas, copd ex Discharge Goals Goal(s): Decrease discomfort, Improve function Activity Recommendations Activity Limitations: resume your previous activity . Instructions / Follow-Up Instructions / Follow-Up FOLLOWUP WITH FAMILY DOCTOR Malik Geronimo ON June AT 2PM FOLLOWUP WITH PULMONARY IN 1-2 WEEKS. TO TAKE OUT PICC LINE BY HOME NURSING OR FAMILY DOCTOR ONCE DONE WITH IV ANTIBIOTICS. NEEDS ONE MORE WEEK OF IV ANTIBIOTICS AND STOP THEM. NEW MEDICATIONS: PREDNISONE 60MG PO DAILY X 3 DAYS THEN PREDNISONE 40MG PO DAILY X 3 DAYS THEN PREDNISONE 20MG PO DAILY AND FURTHER TAPER PER PULMONARY DILTIAZEM CD 120MG PO DAILY SYMBICORT 160/4.5 2 PUFF INH BID OMEPRAZOLE 20MG PO DAILY. STOPPED MEDICATION: PULMICORT RESPULES ( STOPPED STARTED ON SYMBICORT) AMLODIPINE ( STOPPED STARTED ON DILTIAZEM) ADJUSTMENT OF ATIVAN AND DILTAZEM DOSES PER FAMILY DOCTOR. LAB: THYROID PROFILE IN 4-6 WEEKS BY FAMILY DOCTOR. Current Hospital Diet Patient's current hospital diet: AHA Diet (Heart Healthy) Discharge Diet Recommended Diet: AHA Diet (Heart Healthy) Pending Studies Studies pending at discharge: no Medical Emergencies . Who to Call and When: Medical Emergencies: If at any time you feel your situation is an emergency, please call 911 immediately. . Non-Emergent Contact Non-Emergency issues call your: Primary Care Provider . . "Provider Documentation" section prepared by Ranjit Daugherty. VTE Core Measure Inpt VTE Proph given/why not?: Unfractionated heparin SQ
[2016-07-02] MEDS ORDERED: PRLSR20 PO (10:58)
[2016-07-02] MEDS ORDERED: CRDCD120 PO (10:58)
[2016-07-02] MEDS ORDERED: PRD20 PO (10:58)
[2016-07-02] MEDS ORDERED: SYMIN160 INH (10:58)
[2016-07-02] MEDS ORDERED: LCTX PO (11:04)
[2016-07-02 11:05] VITALS: BP 130/70; PULSE 102; PULSE 77; TEMP 36.7; O2SAT 94; O2SAT 96
--- NOTE | 2016-07-02 12:16 | Progress Note ---
Internal Med Progress Note Date of Service: Jul 02, 2016. Provider Documentation: SUBJECTIVE: afebrile no nauseas says sob sometimes ok to go home OBJECTIVE: Vital Signs-as noted below Exam: General-alert and oriented. Not in distress ENT-normal hearing Neck-no neck masses Lungs-cta b/l no wheezing present no crackles Heart-s1 and s2 heard, regular rate and rhythm no murmurs Abdomen-soft bowel sounds present non tender no distension Extremities-no edema no erythema Neuro-alert and awake moves extremities Lab data as noted below. ASSESSMENT & PLAN: ACUTE EXACERBATION OF COPD respiratory status worsen today on iv steroids, nebs and doxycycline patient seems gets flare whenever prednisone dose is below 20mg. changed steroids to po pulmonary on board and appreciate inputs sputum growing pseudomonas changed abx to iv cefepime needs 14days of iv abx as per pulmonary s/p picc line improving not requiring oxygen on two step evaluation but was tachycardic nocturnal pulse ox study ok discharging home with iv cefepime and prednisone taper followup with pcp and pulmonary HYPOTHYROIDISM on Synthroid free t4 high cut back on Synthroid dose to 50mcg daily f/u labs in 4-6 weeks with pcp Sinus tachycardia also present pervious admission and echo was unremarkable cut back on Synthroid dose as above heart rates during 6minute walk today and start on po Cardizem discharging po cardizem 120mg daily f./u with pcp for further adjustments HTN will d/c amlodipine as started on po Cardizem f/u with pcp ANXIETY Ativan prn f/u with pcp SIADH Sodium 136 on Sodium Tablets AAA 2.6 cm on 04/2015 CHRONIC BACK PAIN on lidocaine patch INSOMNIA on Trazodone RECENT TOBACCO CESSATION quit approximately one month ago 40+ pack year history Discharge home with home health Vital Signs: Date Time Temp Pulse Resp B/P Pulse Ox O2 Delivery O2 Flow Rate FiO2 07/02/16 11:05 36.7 77 14 94 Room Air 07/02/16 11:05 102 18 96 Room Air 07/02/16 08:31 94 Room Air 07/02/16 08:00 Room Air 07/02/16 07:46 36.7 77 14 130/70 94 Room Air 07/02/16 06:56 87 18 96 Room Air 07/02/16 00:55 36.3 87 18 113/79 95 07/02/16 00:00 Room Air 07/01/16 20:00 94 Room Air 07/01/16 19:59 97 18 94 Room Air 07/01/16 15:51 36.5 91 18 135/70 94 Room Air 07/01/16 15:40 Room Air 07/01/16 14:02 95 18 97 Room Air 07/01/16 13:12 101 149/67 94 Room Air Lab Results: Results Past 24 Hours Test 07/02/16 06:58 Range/Units Creatinine 0.68 0.60-1.20 mg/dl Est Creatinine Clear Calc Drug Dose 39.1 ml/min Estimated GFR () 99.9 Estimated GFR (Non- 86.2
--- NOTE | 2016-07-02 12:56 | Discharge Summary ---
Discharge Summary Date of Service Jul 02, 2016. Discharge Summary Admission Date: Jun 20, 2016 at 13:51 Discharge Date: Jul 02, 2016 Discharge Disposition: Home with services Principal Diagnosis: ACUTE BRONCHITIS WITH PSEUDOMONAS COPD EX TACHYCARDIA Secondary Diagnoses/Problems: 1) Allergic rhinitis Status: Chronic (2) Chronic obstructive pulmonary disease Status: Chronic (3) Glaucoma Status: Chronic (4) HTN (hypertension) Status: Chronic (5) Hypothyroidism Status: Chronic (6) Osteoporosis Status: Chronic (7) SIADH (syndrome of inappropriate ADH production) Status: Chronic Procedures: CXR: Emphysema. No acute findings. Consultations: PULMONARY Medication Reconciliation New Medications: Budesonide/Formoterol Fumarate (Symbicort 160/4.5 Inhaler) 120 Puffs/ Aero 2 PUFFS INH BID for 30 Days, #1 INHALER 3 Refills Lactobacillus Acidophilus (Lactinex) Tab 2 TAB PO BID for 10 Days, TAB Omeprazole (Prilosec) 20 Mg Capcr 20 MG PO DAILY for 30 Days, #30 CAP 2 Refills Diltiazem HCl (Diltiazem Cd) 120 Mg Capcr 120 MG PO QAM for 30 Days, 2 Refills Prednisone (Prednisone) 20 Mg Tab 60 MG PO UD, #30 TAB PREDNSIONE 60MG PO DAILY X 3 DAYS THEN PREDNISONE 40MG PO DAILY X 3 DAYS THEN PREDNSIONE 20MG PO DAILY AND FURTHER TAPER PER PULMONARY Continued Medications: Albuterol Hfa (Ventolin Hfa) 200 Puffs/99104 Mcg Aers 2-4 PUFFS INH Q4H PRN for SOB/Wheezing, #1 INHALER Azithromycin (Zithromax) 250 Mg Tab 250 MG PO 3XWK, #4 TAB M-W-F Fluticasone Propionate (Nasal) (Flonase Allergy Relief) 50 Mcg/Act Spr 2 SPRAYS NADIA DAILY Lactulose (Chronulac) 10 Gm/15 Ml Syrp 15 ML PO BID PRN for Constipation Levalbuterol Hcl (Levalbuterol) 1.25 Mg/0.5 Ml Neb 0.5 ML INH Q4H PRN for SOB/Wheezing Levothyroxine Sodium (Levothyroxine Sodium) 75 Mcg Tab 75 MCG PO DAILY Lidocaine (Lidocaine) 1 Patch Tdsy 1 PATCH TD DAILY@0900 for 30 Days APPLY TO LOWER BACK FOR 12HRS, THEN REMOVE FOR 12 HRS Lorazepam (Lorazepam) 0.5 Mg Tab 0.5 MG PO TID PRN for Anxiety, #60 Potassium Chloride Microencaps (Potassium Chloride Er) 10 Meq Tab 10 MEQ PO BID TAKE THIS MEDICATION WITH FOOD. Sodium Chloride (Sodium Chloride) 1 Gm Tab 1 GM PO TID Tiotropium [place] (Spiriva Handihaler) 5 Puff/90 Mcg Aerp 1 PUFF INH QAM for 30 Days, #1 INHALER Travoprost (Travatan Z) 0.004 % [place] 1 DROPS OPB HS, #1 BTL 5 Refills Trazodone Hcl (Trazodone) 50 Mg Tab 50 MG PO HS, TAB Discontinued Medications: Amlodipine Besylate (Norvasc) 2.5 Mg Tab 2.5 MG PO DAILY Budesonide (Inhalation) (Pulmicort Respules 0.5MG/2ML) 0.5 Mg/2 Ml [place] 2 ML INH BID, #120 Prednisone (Prednisone) 10 Mg Tab 20 MG PO DAILY, #54 on a taper Admission Information HPI (per Admitting provider): Patient seen and examined. 76 year old female with PMHX of COPD, HTN, Hypothyroidism, SIADH, and anxiety presents to the ED complaining of SOB x 3 days. Patient reports she has had increasing SOB over the last three days. She has associated cough which is sometimes productive. She reports associated nasal congestion. She states shehas some wheezing. She states she has been using her nebulizers at home with some relief. She reports the SOB has been worsening until this morning she felt she could not breath at all and EMS was called. Patient is currently on a long prednisone taper and current dose is 20 mg daily. She also takes prophylactic Azithromycin on [facility]. She denies fevers, chills, chest pain, palpitations, nausea, vomiting, diarrhea, dysuria, calf pain and edema. She denies sick contacts. Patient was admitted for similar symptoms at the end of April. She reports she has not smoked since before that admission. She reports several years ago she was on oxygen therapy but it was taken away. Last admission a 2 step pulse ox did not show significant desaturation. In the ED patient was mildly tachycardic and tachypneic. She was saturating well on RA at rest. She had mild leukocytosis, CXR was negative for acute changes. She received Rocephin, Solu-Medrol and Duonebs. She reports feeling a little better. After ambulating to the bathroom patient was hypoxic on RA. She was placed on supplemental oxygen. She will be admitted for further workup and treatment. Physical Exam (per Admitting): General Appearance: + pertinent finding (Pleasant ill appearing 76 year old female lying in bed in NAD ) Head: normocephalic, atraumatic Eyes: PERRL, EOMI, sclerae normal ENT: hearing grossly normal, pharynx normal Neck: supple, no JVD Respiratory/Chest: chest non-tender, + pertinent finding (Decreased breath sounds, decreased air entry, scattered rhonchi and wheezes, mild tachypnea, occasional conversational dyspnea ) Cardiovascular: no edema, no gallop, no JVD, no murmur, normal peripheral pulses, + tachycardia (low 100s, regular ) Abdomen/GI: normal bowel sounds, non tender, soft Back: normal inspection, no muscle spasm Extremities/Musculoskelatal: no calf tenderness, normal capillary refill, no pedal edema Neurologic/Psych: alert, oriented x 3, + pertinent finding (no motor or sensory deficits noted on gross exam ) Skin: normal color, warm/dry, no rash Lymphatic: no adenopathy Physical Exam (per Admitting): General Appearance: + pertinent finding (Pleasant ill appearing 76 year old female lying in bed in NAD ) Head: normocephalic, atraumatic Eyes: PERRL, EOMI, sclerae normal ENT: hearing grossly normal, pharynx normal Neck: supple, no JVD Respiratory/Chest: chest non-tender, + pertinent finding (Decreased breath sounds, decreased air entry, scattered rhonchi and wheezes, mild tachypnea, occasional conversational dyspnea ) Cardiovascular: no edema, no gallop, no JVD, no murmur, normal peripheral pulses, + tachycardia (low 100s, regular ) Abdomen/GI: normal bowel sounds, non tender, soft Back: normal inspection, no muscle spasm Extremities/Musculoskelatal: no calf tenderness, normal capillary refill, no pedal edema Neurologic/Psych: alert, oriented x 3, + pertinent finding (no motor or sensory deficits noted on gross exam ) Skin: normal color, warm/dry, no rash Lymphatic: no adenopathy Hospital Course ACUTE EXACERBATION OF COPD respiratory status worsen today on iv steroids, nebs and doxycycline patient seems gets flare whenever prednisone dose is below 20mg. changed steroids to po pulmonary on board and appreciate inputs sputum growing pseudomonas changed abx to iv cefepime needs 14days of iv abx as per pulmonary s/p picc line improving not requiring oxygen on two step evaluation but was tachycardic nocturnal pulse ox study ok discharging home with iv cefepime and prednisone taper followup with pcp and pulmonary HYPOTHYROIDISM on Synthroid free t4 high cut back on Synthroid dose to 50mcg daily f/u labs in 4-6 weeks with pcp Sinus tachycardia also present pervious admission and echo was unremarkable cut back on Synthroid dose as above heart rates during 6minute walk today and start on po Cardizem discharging po cardizem 120mg daily f./u with pcp for further adjustments HTN will d/c amlodipine as started on po Cardizem f/u with pcp ANXIETY Ativan prn f/u with pcp 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 Discharge Instructions Please take this sheet to every appointment for the next month Discharge Instructions Date of Service Jul 02, 2016. Admission Reason for Admission: Acute Bronchitis; Copd; Respiratory Distress Discharge Discharge Diagnosis / Problem: acute bronchitis with pseudomonas, copd ex Discharge Goals Goal(s): Decrease discomfort, Improve function Activity Recommendations Activity Limitations: resume your previous activity . Instructions / Follow-Up Instructions / Follow-Up FOLLOWUP WITH FAMILY DOCTOR Malik Geronimo ON June AT 2PM FOLLOWUP WITH PULMONARY IN 1-2 WEEKS. TO TAKE OUT PICC LINE BY HOME NURSING OR FAMILY DOCTOR ONCE DONE WITH IV ANTIBIOTICS. NEEDS ONE MORE WEEK OF IV ANTIBIOTICS AND STOP THEM. NEW MEDICATIONS: PREDNISONE 60MG PO DAILY X 3 DAYS THEN PREDNISONE 40MG PO DAILY X 3 DAYS THEN PREDNISONE 20MG PO DAILY AND FURTHER TAPER PER PULMONARY DILTIAZEM CD 120MG PO DAILY SYMBICORT 160/4.5 2 PUFF INH BID OMEPRAZOLE 20MG PO DAILY. STOPPED MEDICATION: PULMICORT RESPULES ( STOPPED STARTED ON SYMBICORT) AMLODIPINE ( STOPPED STARTED ON DILTIAZEM) ADJUSTMENT OF ATIVAN AND DILTAZEM DOSES PER FAMILY DOCTOR. LAB: THYROID PROFILE IN 4-6 WEEKS BY FAMILY DOCTOR. Current Hospital Diet Patient's current hospital diet: AHA Diet (Heart Healthy) Discharge Diet Recommended Diet: AHA Diet (Heart Healthy) Pending Studies Studies pending at discharge: no Medical Emergencies . Who to Call and When: Medical Emergencies: If at any time you feel your situation is an emergency, please call 911 immediately. . Non-Emergent Contact Non-Emergency issues call your: Primary Care Provider . . "Provider Documentation" section prepared by Ranjit Daugherty. VTE Core Measure Inpt VTE Proph given/why not?: Unfractionated heparin SQ
== END 2016-07-02 13:35 | disposition home health service (06) | DRG 191 ==
LOC: ENRESERVDT → ENRESERVTM → EDBD 11:30 → C.EDC 11:31 → C.2T 13:51 → C.MS2W 06-21 16:08
PROVIDERS: ADMIT Hospitalist; ATTEND Internal Medicine
PROC: 02HV33Z Insertion of Infusion Device into Superior Vena Cava, Percutaneous Approach (ICD-10-PCS; principal; 2016-06-29)
DX: J44.1 Chronic obstructive pulmonary disease with (acute) exacerbation (principal); E22.2 Syndrome of inappropriate secretion of antidiuretic hormone; J20.9 Acute bronchitis, unspecified; J44.0 Chronic obstructive pulmonary disease with (acute) lower respiratory infection; F41.9 Anxiety disorder, unspecified; H40.9 Unspecified glaucoma; E03.9 Hypothyroidism, unspecified; M81.0 Age-related osteoporosis without current pathological fracture; Z88.2 Allergy status to sulfonamides; I10 Essential (primary) hypertension; Z87.891 Personal history of nicotine dependence; M54.9 Dorsalgia, unspecified; B96.5 Pseudomonas (aeruginosa) (mallei) (pseudomallei) as the cause of diseases classified elsewhere; J30.9 Allergic rhinitis, unspecified

== ENCOUNTER → 2016-07-12 | Outpatient (CLI) | payer OTHER ==
[~2016-07-12] MED LIST changes: -ADVIN50/60 INH; -AMLO2.5T PO; -CLR10 PO; +DILT120C50 PO; +LCTX PO; +PRD20 PO; +PRLSR20 PO; +SYMIN160 INH
--- NOTE | 2016-07-12 12:03 | DIAGNOSTIC IMAGING REPORT ---
CHEST 2 VIEWS ROUTINE CLINICAL HISTORY: Off, COPD. COMPARISON STUDY: 06/20/2016 FINDINGS: There is underlying pulmonary emphysema. There is no focal pulmonary consolidation. There is no failure. There are no pleural effusions. There is a right-sided PICC catheter with tip projects over the axillary vein.[ IMPRESSION: 1. No active disease in the chest 2. Emphysema 3. Right-sided PICC catheter with its tip at the level of the axillary vein Electronically signed by: Rafy Ortiz M.D. 07/12/2016 12:02 PM Dictated Date/Time: 07/12/2016 12:01 PM
== END | disposition home or self-care (01) ==
LOC: C.RADBBURG 00:55
PROVIDERS: ATTEND Physician Assistant
DX: J44.9 Chronic obstructive pulmonary disease, unspecified (principal); R05 Cough